=== PATIENT | female | born 1945 | race Caucasian/White ===

== ENCOUNTER 2016-12-03 18:35 | Emergency (ER) | payer MEDICARE ==
[2016-12-03 19:11] VITALS: TEMP 98
[2016-12-03] MEDS ORDERED: SODIUM CHLORIDE 0.9% 1,000 ML IV STA ×2 (19:47)
[2016-12-03] MEDS ORDERED: SODIUM CHLORIDE 0.9% 500 ML IV STA ×2 (19:47→21:44)
--- NOTE | 2016-12-03 19:51 | ED ---
Altered Mental Status HPI - General Chief Complaint: Altered Mental Status Stated Complaint: memory loss and confusion x 2 weeks Time Seen by Provider: 12/03/16 19:00 Source: patient, family, RN/MD, RN notes reviewed Mode of arrival: ambulatory Limitations: no limitations - History of Present Illness Initial Comments: This is a 71-year-old female history of breast cancer status post bilateral mastectomy is also status post chemo radiation therapy who for about the past 2 weeks is had a change in her mental status. Normally she is very upbeat very talkative very alert and very active for the past 2 weeks she's progressively gotten worse she's apathetic lethargic not eating or drinking. She was seen by her doctor and found that has some right-sided weakness with her leg. She's been nonverbal which she normally is very talkative. She's been falling. She' s had tremors. No reports of fevers chills sweats cough or phlegm production or dysuria. MD Complaint: altered mental status, weakness - Related Data Home Medications Medication Instructions Recorded Confirmed Pravastatin Sodium 20 mg PO HS 07/10/15 12/03/16 Enalapril [Vasotec] 20 mg PO BID 04/24/16 12/03/16 Allergies Allergy/AdvReac Type Severity Reaction Status Date / Time hydromorphone HCl AdvReac Nausea & Verified 12/03/16 19:49 [From Dilaudid] Vomiting Review of Systems ROS Statement: Those systems with pertinent positive or pertinent negative responses have been documented in the HPI. ROS Other: All systems not noted in ROS Statement are negative. Past Medical History Past Medical History: Asthma, Cancer, Hyperlipidemia, Hypertension, Liver Disease, Osteoarthritis (OA), Thyroid Disorder Additional Past Medical History / Comment(s): Has BRCA2 gene, RIGHT BREAST CANCER WITH chemo and RADIATION. 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 THYROID NODULES. Rectal bleed (lower) with mclean divertiulosis. History of Any Multi-Drug Resistant Organisms: None Reported Past Surgical History: Breast Surgery, Section, Hysterectomy, Joint Replacement, Tubal Ligation Additional Past Surgical History / Comment(s): 01/21/16 BILATERAL SIMPLE MASTECTOMIES. 07/17/15 SENTINEL NODE BX/AXILLARY NODE DISECTION NEEDLE LOC. RIGHT LUMPECTOMY, 09/09/15. TOTAL RT HIP. L internal jugular mediport. Past Anesthesia/Blood Transfusion Reactions: Motion Sickness Past Psychological History: No Psychological Hx Reported Additional Psychological History / Comment(s): Pt resides with her spouse. . Smoking Status: Former smoker Past Alcohol Use History: Rare Additional Past Alcohol Use History / Comment(s): STARTED SMOKING AT AGE 10 QUIT AT AGE 49 SMOKED 1/2 PPD ( [id number]). Past Drug Use History: None Reported - Past Family History Daughter(s) Family Medical History: Cancer Additional Family Medical History / Comment(s): Pt has 3 daughters. Two have the Braca gene and one has breast cancer and the other has had bilateral mastectomies. The third jared does not have the BRACA gene-she has had thyroid cancer. Mother Sister(s) Daughter(s) Family Medical History: Cancer Additional Family Medical History / Comment(s): BREAST CANCER at age 52. Father Family Medical History: No Reported History Additional Family Medical History / Comment(s): at age 91 yrs. General Exam - General Exam Comments Initial Comments: This is a well-developed well-nourished awake but lethargic female Limitations: no limitations General appearance: alert, in no apparent distress Head exam: Present: atraumatic, normocephalic, normal inspection Eye exam: Present: normal appearance, PERRL, EOMI. Absent: scleral icterus, conjunctival injection, periorbital swelling ENT exam: Present: mucous membranes dry Neck exam: Present: normal inspection. Absent: tenderness, meningismus, lymphadenopathy Respiratory exam: Present: normal lung sounds bilaterally, other (Status post mastectomy). Absent: respiratory distress, wheezes, rales, rhonchi, stridor, chest wall tenderness Cardiovascular Exam: Present: regular rate, normal rhythm, normal heart sounds. Absent: systolic murmur, diastolic murmur, rubs, gallop, clicks GI/Abdominal exam: Present: soft, normal bowel sounds. Absent: distended, tenderness, guarding, rebound, rigid Extremities exam: Present: normal inspection, full ROM, normal capillary refill. Absent: tenderness, pedal edema, joint swelling, calf tenderness Back exam: Present: normal inspection Neurological exam: Present: alert, oriented X3, CN II-XII intact Psychiatric exam: Present: flat affect Skin exam: Present: warm, dry, intact, normal color. Absent: rash Course Vital Signs 12/03/16 12/03/16 19:06 21:43 Temperature 98 F Pulse Rate 62 65 Respiratory 18 16 Rate Blood Pressure 212/90 223/98 O2 Sat by Pulse 100 Oximetry - Reevaluation(s) Reevaluation #1: 12/03/16 21:54 I did reevaluate the patient no changes her blood pressure still elevated. She' ll receive IV medication and fluids. Medical Decision Making - Medical Decision Making I did discuss findings with patient family patient will be transferred to [facility] the accepting physician is Dr. Mcallister - Lab Data Result diagrams: 12/03/16 19:30 12/03/16 19:30 Lab Results 12/03/16 12/03/16 12/03/16 Range/Units 19:30 19:30 19:30 WBC 6.3 (3.8-10.6) k/uL RBC 4.82 (3.80-5.40) m/uL Hgb 14.2 (11.4-16.0) gm/dL Hct 40.2 (34.0-46.0) % MCV 83.5 (80.0-100.0) fL MCH 29.4 (25.0-35.0) pg MCHC 35.2 (31.0-37.0) g/dL RDW 14.4 (11.5-15.5) % Plt Count 192 (150-450) k/uL Neutrophils % 76 % Lymphocytes % 13 % Monocytes % 6 % Eosinophils % 1 % Basophils % 0 % Neutrophils # 4.8 (1.3-7.7) k/uL Lymphocytes # 0.8 L (1.0-4.8) k/uL Monocytes # 0.4 (0-1.0) k/uL Eosinophils # 0.1 (0-0.7) k/uL Basophils # 0.0 (0-0.2) k/uL Hyperchromasia Slight Poikilocytosis Slight Sodium 143 (137-145) mmol/L Potassium 3.8 (3.5-5.1) mmol/L Chloride 107 (98-107) mmol/L Carbon Dioxide 21 L (22-30) mmol/L Anion Gap 15 mmol/L BUN 18 H (7-17) mg/dL Creatinine 0.75 (0.52-1.04) mg/dL Est GFR (MDRD) Af Amer >60 (>60 ml/min/1.73 sqM) Est GFR (MDRD) Non-Af >60 (>60 ml/min/1.73 sqM) Glucose 75 (74-99) mg/dL Calcium 9.8 (8.4-10.2) mg/dL Magnesium 1.7 (1.6-2.3) mg/dL Total Bilirubin 0.8 (0.2-1.3) mg/dL AST 25 (14-36) U/L ALT 33 (9-52) U/L Alkaline Phosphatase 95 (38-126) U/L Ammonia (<30) umol/L Total Creatine Kinase 45 (30-135) U/L CK-MB (CK-2) 1.3 (0.0-2.4) ng/mL CK-MB (CK-2) Rel Index 2.9 Total Protein 7.3 (6.3-8.2) g/dL Albumin 4.5 (3.5-5.0) g/dL Amylase 62 (30-110) U/L Lipase 171 (23-300) U/L 12/03/16 Range/Units 20:05 WBC (3.8-10.6) k/uL RBC (3.80-5.40) m/uL Hgb (11.4-16.0) gm/dL Hct (34.0-46.0) % MCV (80.0-100.0) fL MCH (25.0-35.0) pg MCHC (31.0-37.0) g/dL RDW (11.5-15.5) % Plt Count (150-450) k/uL Neutrophils % % Lymphocytes % % Monocytes % % Eosinophils % % Basophils % % Neutrophils # (1.3-7.7) k/uL Lymphocytes # (1.0-4.8) k/uL Monocytes # (0-1.0) k/uL Eosinophils # (0-0.7) k/uL Basophils # (0-0.2) k/uL Hyperchromasia Poikilocytosis Sodium (137-145) mmol/L Potassium (3.5-5.1) mmol/L Chloride (98-107) mmol/L Carbon Dioxide (22-30) mmol/L Anion Gap mmol/L BUN (7-17) mg/dL Creatinine (0.52-1.04) mg/dL Est GFR (MDRD) Af Amer (>60 ml/min/1.73 sqM) Est GFR (MDRD) Non-Af (>60 ml/min/1.73 sqM) Glucose (74-99) mg/dL Calcium (8.4-10.2) mg/dL Magnesium (1.6-2.3) mg/dL Total Bilirubin (0.2-1.3) mg/dL AST (14-36) U/L ALT (9-52) U/L Alkaline Phosphatase (38-126) U/L Ammonia <9 (<30) umol/L Total Creatine Kinase (30-135) U/L CK-MB (CK-2) (0.0-2.4) ng/mL CK-MB (CK-2) Rel Index Total Protein (6.3-8.2) g/dL Albumin (3.5-5.0) g/dL Amylase (30-110) U/L Lipase (23-300) U/L - EKG Data -: EKG Interpreted by Me EKG shows normal: sinus rhythm (EKG shows sinus bradycardia 54. Interval 186 QRS duration 138 daily since QTC of 476/451 red bundle-branch block pattern no acute ST-T wave changes) - Radiology Data Radiology results: report reviewed (I did review the imaging and reports are is evidence of 5 x 3 cm left frontal lobe mass very minimal evidence of mass effect.), image reviewed Disposition Clinical Impression: Brain mass, Hypertension, Dehydration, Encephalopathy, History of breast cancer Disposition: OTHER INSTITUTION NOT DEFINED Condition: Serious - Out of Hospital Transfer - Req. Specs Out of Hospital Transfer - Requested Specifics: Other Emergency Center
[2016-12-03 20:01] LABS: Basophils % (A) 0 %; CH 30.3; CHCM 36.4; Eosinophils # (A) 0.1 k/uL (0-0.7); Eosinophils % (A) 1 %; HCT 40.2 % (34.0-46.0); HDW 3.69; HGB 14.2 gm/dL (11.4-16.0); Hyperchromasia Slight; Luc # (Auto) 0.21; Luc % (Auto) 3; Lymphocytes # (A) 0.8 k/uL (1.0-4.8); Lymphocytes % (A) 13 %; MCH 29.4 pg (25.0-35.0); MCHC 35.2 g/dL (31.0-37.0); MCV 83.5 fL (80.0-100.0); Mean Platelet Volume 6.7; Monocytes # (A) 0.4 k/uL (0-1.0); Monocytes % (A) 6 %; Neutrophils # (A) 4.8 k/uL (1.3-7.7); Neutrophils % (A) 76 %; Poikilocytosis Slight; RBC 4.82 m/uL (3.80-5.40); RDW 14.4 % (11.5-15.5); WBC 6.3 k/uL (3.8-10.6); WBC (Perox) 6.26
[2016-12-03 20:20] LABS: ALT 33 U/L (9-52); AST 25 U/L (14-36); Alkaline Phosphatase 95 U/L (38-126); Amylase 62 U/L (30-110); Anion Gap 15 mmol/L; Blood Urea Nitrogen 18 mg/dL (7-17); Calcium 9.8 mg/dL (8.4-10.2); Carbon Dioxide 21 mmol/L (22-30); Chloride 107 mmol/L (98-107); Glucose 75 mg/dL (74-99); Magnesium 1.7 mg/dL (1.6-2.3); Non-African American GFR(MDRD) >60 (>60 ml/min/1.73 sqM); Potassium 3.8 mmol/L (3.5-5.1); Sodium 143 mmol/L (137-145); Total Bilirubin 0.8 mg/dL (0.2-1.3); Total Protein 7.3 g/dL (6.3-8.2)
--- NOTE | 2016-12-03 20:29 | XR ---
EXAMINATION TYPE: XR chest 2V DATE OF EXAM: 12/03/2016 8:24 PM COMPARISON: 11/17/2015 HISTORY: Cough TECHNIQUE: Frontal and lateral views of the chest are obtained. FINDINGS: Heart and mediastinum are normal. Lungs are clear. There are no hilar masses. Costophrenic angles are clear. There are chest leads. Bony thorax is intact. IMPRESSION: No active cardiopulmonary disease. No change.
[2016-12-03 20:34] LABS: Creatine Kinase MB 1.3 ng/mL (0.0-2.4)
[2016-12-03] MEDS: RX INFO: IV CONTRAST WAS GIVEN 1 EACH MISC MISCELLANE PRN (20:38)
--- NOTE | 2016-12-03 20:56 | CT ---
EXAMINATION TYPE: CT brain wo/w con DATE OF EXAM: 12/03/2016 8:45 PM COMPARISON: 04/18/2015 HISTORY: MEMORY LOSS AND CONFUSION X2 WEEKS. HX OF BREAST CA. CT DLP: 1877.2 mGycm Automated exposure control for dose reduction was used. CONTRAST: CT scan of the head is performed without and with IV Contrast, patient injected with 100 mL of Omnipa que 300. FINDINGS: There is of oval-shaped 5 x 3 cm hypodense mass in the left frontal lobe with effacement of the front al horn left lateral ventricle. There is surrounding white matter edema. Midline is shifted slightly to the right. There is no evidence of intracranial hemorrhage. There is ring enhancement of the lesio n with the contrast. The calvarium is intact. IMPRESSION: There is a large ring-enhancing mass in the left frontal lobe with surrounding edema. This is consist ent with metastatic disease in this patient with a history of breast cancer. This lesion is new ludwin red to old exam of 04/18/2015. Brain abscess is in the differential diagnosis. No other brain lesions i dentified.
[2016-12-03] MEDS ORDERED: ENALAPRILAT 1.25 MG/ML 1 ML VIAL IVP STA (21:44)
[2016-12-03 21:45] VITALS: RESP 16
[2016-12-03] MEDS ORDERED: hydrALAZINE HCL 20 MG/ML 1 ML VIAL IVP STA (22:32)
[2016-12-03] MEDS ORDERED: DEXAMETHASONE SOD PHOSPHATE 10 MG/ML 1 ML VIAL IV STA (22:41)
[2016-12-03 23:02] VITALS: BP 174/95; PULSE 66
[2016-12-03 23:03] LABS: Appearance,Urine Clear (Clear); Bacteria,Urine Rare /hpf; Bilirubin,Urine Negative (Negative); Glucose,Urine (UA) Negative (Negative); Ketones,Urine 3+ (Negative); Leukocyte Esterase,Urine Large (Negative); Mucus,Urine Rare /hpf; Nitrite,Urine Negative (Negative); PH, Urine 5.5 (5.0-8.0); Particle Count 1780; Protein,Urine Trace (Negative); RBC,Urine 13 /hpf (0-5); Specific Gravity,Urine 1.045 (1.001-1.035); Squamous Epithelial Cell,Urine 1 /hpf (0-4); UA Billing (MACRO vs. MICRO) MICRO; Urobilinogen,Urine <2.0 mg/dL (<2.0); WBC,Urine 70 /hpf (0-5)
== END 2016-12-03 22:56 | disposition other institution (70) ==
LOC: EC 18:35
DX: E86.0 Dehydration (principal); G93.40 Encephalopathy, unspecified; I10 Essential (primary) hypertension; G93.9 Disorder of brain, unspecified; Z85.3 Personal history of malignant neoplasm of breast; E78.5 Hyperlipidemia, unspecified; Z87.891 Personal history of nicotine dependence; Z79.899 Other long term (current) drug therapy; Z88.5 Allergy status to narcotic agent
CPT/HCPCS: 36415; 80053; 82140; 82150; 82550; 82553; 83690; 83735; 85025; 81001; 87040; 71020; 70470; 99285; 96374; 96375 ×2; 96361 ×2; J0360; J1100; Q9967; 93005

== ENCOUNTER 2017-01-27 13:42 | Inpatient (IN) | payer MEDICARE ==
[2017-01-27] MEDS ORDERED: SODIUM CHLORIDE 0.9% 1,000 ML IV ONE ×2 (13:49)
--- NOTE | 2017-01-27 13:56 | ED ---
Altered Mental Status HPI - General Stated Complaint: ALTERED LOC Time Seen by Provider: 01/27/17 13:42 Source: family, EMS, RN notes reviewed, old records reviewed Mode of arrival: EMS - History of Present Illness Initial Comments: This is a 71-year-old female history of bilateral mastectomy for breast cancer in brain surgery 6 weeks ago for another tumor was brought in for evaluation today because of decreased lower responsiveness and altered mental status. Patient apparently feels somewhat slowly declining since his surgery has been eating and drinking. She was awake and alert yesterday but this morning and said she responds very slowly. No reports of any recent trauma other than right hip pain from a fall about 2 weeks ago. X-rays of this apparently were negative for acute fractures. No dysuria no hematuria no cough or phlegm production symptoms. Per family the patient is always had some deficit on the silent original hip surgery in the left. Nothing new today MD Complaint: altered mental status, decreased responsiveness - Related Data Home Medications Medication Instructions Recorded Confirmed Acetaminophen-Codeine 300-30mg 1 tab PO Q8H PRN 01/27/17 01/27/17 [Tylenol #3] Enalapril Maleate [Vasotec] 5 mg PO BID 01/27/17 01/27/17 Famotidine [Pepcid] 20 mg PO BID 01/27/17 01/27/17 Memantine [Namenda] 10 mg PO BID 01/27/17 01/27/17 Pantoprazole [Protonix] 40 mg PO DAILY 01/27/17 01/27/17 Pravastatin Sodium [Pravachol] 20 mg PO HS 01/27/17 01/27/17 amLODIPine [Norvasc] 5 mg PO DAILY 01/27/17 01/27/17 levETIRAcetam [Keppra] 500 mg PO BID 01/27/17 01/27/17 Allergies Allergy/AdvReac Type Severity Reaction Status Date / Time hydrocodone AdvReac Nausea & Verified 01/27/17 14:37 Vomiting hydromorphone HCl AdvReac Nausea & Verified 01/27/17 14:37 [From Dilaudid] Vomiting Review of Systems ROS Statement: Those systems with pertinent positive or pertinent negative responses have been documented in the HPI. ROS Other: All systems not noted in ROS Statement are negative. Past Medical History Past Medical History: Asthma, Cancer, Hyperlipidemia, Hypertension, Liver Disease, Osteoarthritis (OA), Thyroid Disorder Additional Past Medical History / Comment(s): Has BRCA2 gene, RIGHT BREAST CANCER WITH chemo and RADIATION. 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 THYROID NODULES. Rectal bleed (lower) with mclean divertiulosis. History of Any Multi-Drug Resistant Organisms: None Reported Past Surgical History: Breast Surgery, Section, Hysterectomy, Joint Replacement, Tubal Ligation Additional Past Surgical History / Comment(s): 01/21/16 BILATERAL SIMPLE MASTECTOMIES. 07/17/15 SENTINEL NODE BX/AXILLARY NODE DISECTION NEEDLE LOC. RIGHT LUMPECTOMY, 09/09/15. TOTAL RT HIP. L internal jugular mediport. Past Anesthesia/Blood Transfusion Reactions: Motion Sickness Past Psychological History: No Psychological Hx Reported Additional Psychological History / Comment(s): Pt resides with her spouse. . Smoking Status: Former smoker Past Alcohol Use History: Rare Additional Past Alcohol Use History / Comment(s): STARTED SMOKING AT AGE 10 QUIT AT AGE 49 SMOKED 1/2 PPD ( [id number]). Past Drug Use History: None Reported - Past Family History Daughter(s) Family Medical History: Cancer Additional Family Medical History / Comment(s): Pt has 3 daughters. Two have the Braca gene and one has breast cancer and the other has had bilateral mastectomies. The third jared does not have the BRACA gene-she has had thyroid cancer. Mother Sister(s) Daughter(s) Family Medical History: Cancer Additional Family Medical History / Comment(s): BREAST CANCER at age 52. Father Family Medical History: No Reported History Additional Family Medical History / Comment(s): at age 91 yrs. General Exam - General Exam Comments Initial Comments: This is a well-developed well-nourished awake lethargic female she does follow commands very slowly Limitations: altered mental status General appearance: alert, in no apparent distress Head exam: Present: normocephalic, other (There is a well-healing surgical scars in the left scalp no evidence of any infection drainage dehiscence) Eye exam: Present: normal appearance, PERRL, EOMI. Absent: scleral icterus, conjunctival injection, periorbital swelling ENT exam: Present: mucous membranes dry Neck exam: Present: normal inspection. Absent: tenderness, meningismus, lymphadenopathy Respiratory exam: Present: normal lung sounds bilaterally, other (Bilateral mastectomy scars well-healed). Absent: respiratory distress, wheezes, rales, rhonchi, stridor Cardiovascular Exam: Present: normal rhythm, tachycardia, normal heart sounds. Absent: systolic murmur, diastolic murmur, rubs, gallop, clicks GI/Abdominal exam: Present: soft, normal bowel sounds. Absent: distended, tenderness, guarding, rebound, rigid Extremities exam: Present: normal inspection, full ROM, tenderness (Tenderness palpation over the right hip no cervical or crepitation), normal capillary refill. Absent: pedal edema, joint swelling, calf tenderness Back exam: Present: normal inspection Neurological exam: Present: alert, altered, CN II-XII intact, reflexes normal Psychiatric exam: Present: normal mood, flat affect Skin exam: Present: warm, dry, intact, normal color. Absent: rash Course Vital Signs 01/27/17 01/27/17 01/27/17 13:56 14:56 14:58 Temperature 99.5 F Pulse Rate 110 H 104 H Pulse Rate [ 104 H Bilateral Radial] Respiratory 14 15 Rate Blood Pressure 106/66 116/57 O2 Sat by Pulse 96 95 Oximetry 01/27/17 15:30 Temperature 98.5 F Pulse Rate 97 Pulse Rate [ Bilateral Radial] Respiratory Rate Blood Pressure 126/66 O2 Sat by Pulse Oximetry - Reevaluation(s) Reevaluation #1: 01/27/17 16:50 Return from CAT scan reveals patient has no acute changes no definite improvement Medical Decision Making - Medical Decision Making Reevaluation patient reveals some improvement in her mentation she so lethargic all over. I did discuss findings with the family and with Dr. Bishop the major finding at this time besides some mild dehydration is elevated troponin. He does not seem indicated any acute changes facial be admitted with cardiology consultation. - Lab Data Result diagrams: 01/27/17 13:45 01/27/17 13:45 Lab Results 01/27/17 01/27/17 01/27/17 Range/Units 13:45 13:45 13:45 WBC 3.0 L (3.8-10.6) k/uL RBC 3.83 (3.80-5.40) m/uL Hgb 12.2 (11.4-16.0) gm/dL Hct 33.5 L (34.0-46.0) % MCV 87.4 (80.0-100.0) fL MCH 31.7 (25.0-35.0) pg MCHC 36.3 (31.0-37.0) g/dL RDW 17.0 H (11.5-15.5) % Plt Count 60 L D (150-450) k/uL Neutrophils % (Manual) 66.0 % Lymphocytes % (Manual) 25.0 % Monocytes % (Manual) 8.0 % Eosinophils % (Manual) 1.0 % Neutrophils # (Manual) 2.0 (1.3-7.7) k/uL Lymphocytes # (Manual) 0.8 L (1.0-4.8) k/uL Monocytes # (Manual) 0.2 (0-1.0) k/uL Eosinophils # (Manual) 0.0 (0-0.7) k/uL Nucleated RBCs 7 H (0-0) /100 WBC Manual Slide Review Performed Hyperchromasia Slight Anisocytosis Slight PT (9.0-12.0) sec INR (<1.1) APTT (22.0-30.0) sec Sodium 129 L (137-145) mmol/L Potassium 4.5 (3.5-5.1) mmol/L Chloride 95 L (98-107) mmol/L Carbon Dioxide 27 (22-30) mmol/L Anion Gap 7 mmol/L BUN 23 H (7-17) mg/dL Creatinine 0.65 (0.52-1.04) mg/dL Est GFR (MDRD) Af Amer >60 (>60 ml/min/1.73 sqM) Est GFR (MDRD) Non-Af >60 (>60 ml/min/1.73 sqM) Glucose 89 (74-99) mg/dL POC Glucose (mg/dL) (75-99) mg/dL POC Glu Fire Protection Designer ID Calcium 8.6 (8.4-10.2) mg/dL Total Bilirubin 1.0 (0.2-1.3) mg/dL AST 24 (14-36) U/L ALT 51 (9-52) U/L Alkaline Phosphatase 76 (38-126) U/L Ammonia (<30) umol/L Total Creatine Kinase 59 (30-135) U/L CK-MB (CK-2) 1.4 (0.0-2.4) ng/mL CK-MB (CK-2) Rel Index 2.4 Troponin I 0.106 H* (0.000-0.034) ng/mL Total Protein 5.4 L (6.3-8.2) g/dL Albumin 3.2 L (3.5-5.0) g/dL Urine Color Urine Appearance (Clear) Urine pH (5.0-8.0) Ur Specific [place] (1.001-1.035) Urine Protein (Negative) Urine Glucose (UA) (Negative) Urine Ketones (Negative) Urine Blood (Negative) Urine Nitrite (Negative) Urine Bilirubin (Negative) Urine Urobilinogen (<2.0) mg/dL Ur Leukocyte Esterase (Negative) Urine RBC (0-5) /hpf Urine WBC (0-5) /hpf Urine WBC Clumps (None) /hpf Ur Squamous Epith Cells (0-4) /hpf Amorphous Sediment (None) /hpf Urine Bacteria (None) /hpf Urine Mucus (None) /hpf Urine Opiates Screen (NotDetected) Ur Oxycodone Screen (NotDetected) Urine Methadone Screen (NotDetected) Ur Propoxyphene Screen (NotDetected) Ur Barbiturates Screen (NotDetected) U Tricyclic Antidepress (NotDetected) Ur Phencyclidine Scrn (NotDetected) Ur Amphetamines Screen (NotDetected) U Methamphetamines Scrn (NotDetected) U Benzodiazepines Scrn (NotDetected) Urine Cocaine Screen (NotDetected) U Marijuana (THC) Screen (NotDetected) 01/27/17 01/27/17 01/27/17 Range/Units 13:45 14:48 14:50 WBC (3.8-10.6) k/uL RBC (3.80-5.40) m/uL Hgb (11.4-16.0) gm/dL Hct (34.0-46.0) % MCV (80.0-100.0) fL MCH (25.0-35.0) pg MCHC (31.0-37.0) g/dL RDW (11.5-15.5) % Plt Count (150-450) k/uL Neutrophils % (Manual) % Lymphocytes % (Manual) % Monocytes % (Manual) % Eosinophils % (Manual) % Neutrophils # (Manual) (1.3-7.7) k/uL Lymphocytes # (Manual) (1.0-4.8) k/uL Monocytes # (Manual) (0-1.0) k/uL Eosinophils # (Manual) (0-0.7) k/uL Nucleated RBCs (0-0) /100 WBC Manual Slide Review Hyperchromasia Anisocytosis PT 9.7 (9.0-12.0) sec INR 0.9 (<1.1) APTT 18.3 L (22.0-30.0) sec Sodium (137-145) mmol/L Potassium (3.5-5.1) mmol/L Chloride (98-107) mmol/L Carbon Dioxide (22-30) mmol/L Anion Gap mmol/L BUN (7-17) mg/dL Creatinine (0.52-1.04) mg/dL Est GFR (MDRD) Af Amer (>60 ml/min/1.73 sqM) Est GFR (MDRD) Non-Af (>60 ml/min/1.73 sqM) Glucose (74-99) mg/dL POC Glucose (mg/dL) (75-99) mg/dL POC Glu Fire Protection Designer ID Calcium (8.4-10.2) mg/dL Total Bilirubin (0.2-1.3) mg/dL AST (14-36) U/L ALT (9-52) U/L Alkaline Phosphatase (38-126) U/L Ammonia <9 (<30) umol/L Total Creatine Kinase (30-135) U/L CK-MB (CK-2) (0.0-2.4) ng/mL CK-MB (CK-2) Rel Index Troponin I (0.000-0.034) ng/mL Total Protein (6.3-8.2) g/dL Albumin (3.5-5.0) g/dL Urine Color Yellow Urine Appearance Cloudy H (Clear) Urine pH 6.5 (5.0-8.0) Ur Specific [place] 1.013 (1.001-1.035) Urine Protein Trace H (Negative) Urine Glucose (UA) Negative (Negative) Urine Ketones Negative (Negative) Urine Blood Small H (Negative) Urine Nitrite Negative (Negative) Urine Bilirubin Negative (Negative) Urine Urobilinogen 2.0 (<2.0) mg/dL Ur Leukocyte Esterase Moderate H (Negative) Urine RBC 8 H (0-5) /hpf Urine WBC 42 H (0-5) /hpf Urine WBC Clumps Occasional H (None) /hpf Ur Squamous Epith Cells 5 H (0-4) /hpf Amorphous Sediment Rare H (None) /hpf Urine Bacteria Many H (None) /hpf Urine Mucus Occasional H (None) /hpf Urine Opiates Screen Detected H (NotDetected) Ur Oxycodone Screen Not Detected (NotDetected) Urine Methadone Screen Not Detected (NotDetected) Ur Propoxyphene Screen Not Detected (NotDetected) Ur Barbiturates Screen Not Detected (NotDetected) U Tricyclic Antidepress Not Detected (NotDetected) Ur Phencyclidine Scrn Not Detected (NotDetected) Ur Amphetamines Screen Not Detected (NotDetected) U Methamphetamines Scrn Not Detected (NotDetected) U Benzodiazepines Scrn Not Detected (NotDetected) Urine Cocaine Screen Not Detected (NotDetected) U Marijuana (THC) Screen Not Detected (NotDetected) 01/27/17 Range/Units 16:02 WBC (3.8-10.6) k/uL RBC (3.80-5.40) m/uL Hgb (11.4-16.0) gm/dL Hct (34.0-46.0) % MCV (80.0-100.0) fL MCH (25.0-35.0) pg MCHC (31.0-37.0) g/dL RDW (11.5-15.5) % Plt Count (150-450) k/uL Neutrophils % (Manual) % Lymphocytes % (Manual) % Monocytes % (Manual) % Eosinophils % (Manual) % Neutrophils # (Manual) (1.3-7.7) k/uL Lymphocytes # (Manual) (1.0-4.8) k/uL Monocytes # (Manual) (0-1.0) k/uL Eosinophils # (Manual) (0-0.7) k/uL Nucleated RBCs (0-0) /100 WBC Manual Slide Review Hyperchromasia Anisocytosis PT (9.0-12.0) sec INR (<1.1) APTT (22.0-30.0) sec Sodium (137-145) mmol/L Potassium (3.5-5.1) mmol/L Chloride (98-107) mmol/L Carbon Dioxide (22-30) mmol/L Anion Gap mmol/L BUN (7-17) mg/dL Creatinine (0.52-1.04) mg/dL Est GFR (MDRD) Af Amer (>60 ml/min/1.73 sqM) Est GFR (MDRD) Non-Af (>60 ml/min/1.73 sqM) Glucose (74-99) mg/dL POC Glucose (mg/dL) 85 (75-99) mg/dL POC Glu Fire Protection Designer ID Dariana, Tanja Calcium (8.4-10.2) mg/dL Total Bilirubin (0.2-1.3) mg/dL AST (14-36) U/L ALT (9-52) U/L Alkaline Phosphatase (38-126) U/L Ammonia (<30) umol/L Total Creatine Kinase (30-135) U/L CK-MB (CK-2) (0.0-2.4) ng/mL CK-MB (CK-2) Rel Index Troponin I (0.000-0.034) ng/mL Total Protein (6.3-8.2) g/dL Albumin (3.5-5.0) g/dL Urine Color Urine Appearance (Clear) Urine pH (5.0-8.0) Ur Specific [place] (1.001-1.035) Urine Protein (Negative) Urine Glucose (UA) (Negative) Urine Ketones (Negative) Urine Blood (Negative) Urine Nitrite (Negative) Urine Bilirubin (Negative) Urine Urobilinogen (<2.0) mg/dL Ur Leukocyte Esterase (Negative) Urine RBC (0-5) /hpf Urine WBC (0-5) /hpf Urine WBC Clumps (None) /hpf Ur Squamous Epith Cells (0-4) /hpf Amorphous Sediment (None) /hpf Urine Bacteria (None) /hpf Urine Mucus (None) /hpf Urine Opiates Screen (NotDetected) Ur Oxycodone Screen (NotDetected) Urine Methadone Screen (NotDetected) Ur Propoxyphene Screen (NotDetected) Ur Barbiturates Screen (NotDetected) U Tricyclic Antidepress (NotDetected) Ur Phencyclidine Scrn (NotDetected) Ur Amphetamines Screen (NotDetected) U Methamphetamines Scrn (NotDetected) U Benzodiazepines Scrn (NotDetected) Urine Cocaine Screen (NotDetected) U Marijuana (THC) Screen (NotDetected) - EKG Data -: EKG Interpreted by Me EKG shows normal: sinus rhythm (Sinus rhythm a rate of 110 NV interval 172 QRS 120 daily since QTC of 326/441 red bundle-branch block pattern this is a change of surface area 1 compared to an EKG dated 12/03/16) - Radiology Data Radiology results: report reviewed (I did review the imaging and reports no acute findings no new findings.), image reviewed Critical Care Time Critical Care Time: Yes Critical Care Time: 31 minutes of critical care time which was initial monitoring of the EMS run and discussed with paramedics discussed with family members history physical labs x-rays. Multiple re-evaluations the patient discussed the patient family regarding the findings. Discussed with the admitting physician. Orders and documentation of the above. Disposition Clinical Impression: Non-ST elevation myocardial infarction (NSTEMI), Failure to thrive Disposition: ADMITTED IP TO THIS HOSP Condition: Stable Referrals: Shobha Boss MD [Primary Care Provider] - 1-2 days
--- NOTE | 2017-01-27 14:26 | XR ---
EXAMINATION TYPE: XR chest 1V portable DATE OF EXAM: 01/27/2017 COMPARISON: 12/03/2016 HISTORY: Altered mental status TECHNIQUE: Single frontal view of the chest is obtained. FINDINGS: There is no focal air space opacity, pleural effusion, or pneumothorax seen. The cardiac silhouette size is within normal limits. The osseous structures are intact. Arthropathy of the shou lders. Atherosclerotic change aorta. Biapical pleural thickening. No overt failure. Diffuse osteopeni a and hypertrophic changes of the vertebral column. IMPRESSION: No acute process.
[2017-01-27 14:28] LABS: INR 0.9 (<1.1); Prothrombin Time 9.7 sec (9.0-12.0)
[2017-01-27 14:30] LABS: ALT 51 U/L (9-52); AST 24 U/L (14-36); Alkaline Phosphatase 76 U/L (38-126); Anion Gap 7 mmol/L; Blood Urea Nitrogen 23 mg/dL (7-17); Calcium 8.6 mg/dL (8.4-10.2); Carbon Dioxide 27 mmol/L (22-30); Chloride 95 mmol/L (98-107); Glucose 89 mg/dL (74-99); Non-African American GFR(MDRD) >60 (>60 ml/min/1.73 sqM); Potassium 4.5 mmol/L (3.5-5.1); Sodium 129 mmol/L (137-145); Total Protein 5.4 g/dL (6.3-8.2)
[2017-01-27 14:32] LABS: Anisocytosis Slight; CH 32.5; CHCM 37.3; HCT 33.5 % (34.0-46.0); HDW 3.34; HGB 12.2 gm/dL (11.4-16.0); Hyperchromasia Slight; MCH 31.7 pg (25.0-35.0); MCHC 36.3 g/dL (31.0-37.0); MCV 87.4 fL (80.0-100.0); Mean Platelet Volume 6.9; RBC 3.83 m/uL (3.80-5.40); WBC (Perox) 3.15
[2017-01-27 14:36] LABS: Add Differential Manual Differential
--- NOTE | 2017-01-27 14:42 | CT ---
EXAMINATION TYPE: CT brain wo con DATE OF EXAM: 01/27/2017 HISTORY: Patient poor historian. Patient shows signs of altered mental status. Patient had a brain tumor removed approximately [address] DLP: 1061 mGycm. Automated Exposure Control for Dose Reduction was Utilized. TECHNIQUE: CT scan of the head is performed without contrast. COMPARISON: CT brain December 03, 2016. FINDINGS: There is new left frontal craniotomy. There is round low density area with nondependent fo ci of air are felt to reflect resection cavity. Some adjacent surrounding edema is seen. There is no acute intracranial hemorrhage or new midline shift identified. There is diffuse ventricular and sulca l prominence consistent with diffuse age-related cerebral atrophy. There is low-attenuation in the p eriventricular white matter consistent with chronic small vessel ischemic change. The globes are int act and the visualized sinuses are clear. IMPRESSION: No acute intracranial hemorrhage . There is stable diffuse age-related cerebral atrophy and chronic small vessel ischemic change redemonstrated. Interval left frontal surgery noted.
[2017-01-27 14:45] LABS: Nucleated Red Blood Cells 7 /100 WBC (0-0); Partial Thromboplastin Time 18.3 sec (22.0-30.0); Total Cells Counted 200
[2017-01-27 14:48] LABS: Manual Review Performed
--- NOTE | 2017-01-27 14:55 | CT ---
EXAMINATION TYPE: CT hip RT wo con DATE OF EXAM: 01/27/2017 COMPARISON: CT abdomen and pelvis November 16, 2015. HISTORY: Patient poor historian. Right hip pain. CT DLP: 428 mGycm Automated exposure control for dose reduction was used. FINDINGS: Metallic hardware from hip arthroplasty is redemonstrated. This causes streak artifact limiting evalu ation of pelvic structures. No acute fracture or dislocation in the right hip is identified. Prosthes is position is stable and satisfactory. Scattered pelvic phleboliths are redemonstrated. Diverticula are redemonstrated in the visualized sig moid colon. No concerning pelvic fluid collection or adenopathy is seen. No suspicious bowel or fat-c ontaining right inguinal hernia is identified. IMPRESSION: NO SIGNIFICANT NEW FINDING IS SEEN TO ACCOUNT FOR PATIENT'S SYMPTOMS.
[2017-01-27 15:05] LABS: Creatine Kinase MB 1.4 ng/mL (0.0-2.4)
[2017-01-27 15:09] LABS: Amorphous Sediment,Urine Rare /hpf; Appearance,Urine Cloudy (Clear); Bacteria,Urine Many /hpf; Bilirubin,Urine Negative (Negative); Glucose,Urine (UA) Negative (Negative); Ketones,Urine Negative (Negative); Leukocyte Esterase,Urine Moderate (Negative); Mucus,Urine Occasional /hpf; Nitrite,Urine Negative (Negative); PH, Urine 6.5 (5.0-8.0); Particle Count 96914; Protein,Urine Trace (Negative); RBC,Urine 8 /hpf (0-5); Specific Gravity,Urine 1.013 (1.001-1.035); Squamous Epithelial Cell,Urine 5 /hpf (0-4); UA Billing (MACRO vs. MICRO) MICRO; WBC,Urine 42 /hpf (0-5)
[2017-01-27 15:12] LABS: Troponin I 0.106 ng/mL (0.000-0.034)
[2017-01-27 16:03] LABS: Glucose,Whole Blood 85 mg/dL (75-99)
[2017-01-27] MEDS ORDERED: NITROGLYCERIN SL TABS 0.4 MG TAB SUBLINGUAL PRN (16:52)
[2017-01-27] MEDS ORDERED: Acetaminophen-Codeine 300-30mg TAB PO PRN (16:55)
[2017-01-27] MEDS ORDERED: Acetaminophen-Codeine 300-30mg TAB PO STA (18:18)
[2017-01-27 20:42] LABS: Creatine Kinase MB 1.2 ng/mL (0.0-2.4)
[2017-01-27 20:49] LABS: Troponin I 0.126 ng/mL (0.000-0.034)
[2017-01-27] MEDS: FAMOTIDINE 20 MG TAB PO SCH (22:10)
[2017-01-27] MEDS: levETIRAcetam 500 MG TAB PO SCH (22:10)
[2017-01-27] MEDS: MEMANTINE 10 MG TAB PO SCH (22:10)
[2017-01-27] MEDS: PRAVASTATIN SODIUM 20 MG TAB PO SCH (22:11)
[2017-01-27] MEDS: HEPARIN SODIUM,PORCINE 5,000 UNIT/ML 1 ML VIAL SQ SCH (22:17)
[2017-01-27] MEDS: LISINOPRIL 10 MG TAB PO SCH (22:17)
[2017-01-28 03:33] LABS: Creatine Kinase MB 1.2 ng/mL (0.0-2.4)
[2017-01-28 03:36] LABS: Troponin I 0.103 ng/mL (0.000-0.034)
[2017-01-28] MEDS: PANTOPRAZOLE 40 MG TABLET PO SCH (06:16)
[2017-01-28 06:31] LABS: Cholesterol 218 mg/dL (<200); HDL Cholesterol 54 mg/dL (40-60)
--- NOTE | 2017-01-28 08:18 | CT ---
EXAMINATION TYPE: CT brain wo con DATE OF EXAM: 01/28/2017 HISTORY: Mental status changes CT DLP: 969 mGycm. Automated Exposure Control for Dose Reduction was Utilized. TECHNIQUE: CT scan of the head is performed without contrast. COMPARISON: CT brain from yesterday. FINDINGS: High left frontal craniotomy is redemonstrated. Cavity with surrounding edema left frontal lobe is again seen. Mass effect on frontal horn left lateral ventricle is stable. There is no acute intracranial hemorrhage or midline shift identified. There is diffuse ventricular and sulcal prominen ce consistent with diffuse age-related cerebral atrophy. There is low-attenuation in the periventric ular white matter consistent with chronic small vessel ischemic change. The globes are intact and th e visualized sinuses are clear. IMPRESSION: No acute intracranial hemorrhage or midline shift. Overall stable findings, there is dif fuse age-related cerebral atrophy and chronic small vessel ischemic change redemonstrated. Left fron shanelle surgical changes again seen and stable.
--- NOTE | 2017-01-28 08:21 | P.CRDCN ---
History of Present Illness Consult date: 01/28/17 Requesting physician: Cisco Bishop Reason for Consult (text): Abnormal troponins Chief complaint: Mental status changes History of present illness: This is a 71-year-old female, she is not responding verbally this morning and most of the history was obtained from the medical record. Patient has a history of hypertension, hyperlipidemia, hypothyroidism, asthma, right breast carcinoma status post chemotherapy and bilateral mastectomy, patient underwent brain surgery 6 weeks ago at which time a tumor is removed. She was apparently brought to the hospital because of decreased responsiveness and altered mental status. Cardiology consultation was requested because of abnormal troponins. Blood pressure on arrival 106/60 with a heart rate of 110, temperature on arrival 99.5 she was 96% on 2 L of oxygen. Her temperature did go up to 101.4 yesterday. This morning's temperature 100. EKG shows sinus tachycardia with a right bundle branch block pattern and nonspecific ST-T wave changes. Brain CT does not reveal any acute intracranial hemorrhage interval left frontal surgery is noted. Chest x-ray does not reveal any acute process. Right hip CT does not reveal any new findings. White blood cell count 3.0, hemoglobin 12.2, platelet count 60. Sodium 129, chloride 95, BUN 23, creatinine 0.6. Troponins 0.10, 0.12, 0.10. Patient apparently became completely unresponsive through the night and a repeat CT of the brain was performed this morning. At the time of my examination, patient is lying flat in bed, eyes are open, nonverbal. Past Medical History Past Medical History: Asthma, Cancer, Hyperlipidemia, Hypertension, Liver Disease, Osteoarthritis (OA) Additional Past Medical History / Comment(s): Has BRCA2 gene, RIGHT BREAST CANCER WITH chemo and RADIATION. 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 THYROID NODULES. Rectal bleed (lower) with mclean divertiulosis. History of Any Multi-Drug Resistant Organisms: None Reported Past Surgical History: Breast Surgery, Section, Hysterectomy, Joint Replacement, Tubal Ligation Additional Past Surgical History / Comment(s): 01/21/16 BILATERAL SIMPLE MASTECTOMIES. 07/17/15 SENTINEL NODE BX/AXILLARY NODE DISECTION NEEDLE LOC. RIGHT LUMPECTOMY, 09/09/15. TOTAL RT HIP. L internal jugular mediport. Past Anesthesia/Blood Transfusion Reactions: Motion Sickness Past Psychological History: No Psychological Hx Reported Additional Psychological History / Comment(s): Pt resides with her spouse. . Smoking Status: Former smoker Past Alcohol Use History: Rare Additional Past Alcohol Use History / Comment(s): STARTED SMOKING AT AGE 10 QUIT AT AGE 49 SMOKED 1/2 PPD ( [id number]). Past Drug Use History: None Reported - Past Family History Daughter(s) Family Medical History: Cancer Additional Family Medical History / Comment(s): Pt has 3 daughters. Two have the Braca gene and one has breast cancer and the other has had bilateral mastectomies. The third jared does not have the BRACA gene-she has had thyroid cancer. Mother Sister(s) Daughter(s) Family Medical History: Cancer Additional Family Medical History / Comment(s): BREAST CANCER at age 52. Father Family Medical History: No Reported History Additional Family Medical History / Comment(s): at age 91 yrs. Medications and Allergies Home Medications Medication Instructions Recorded Confirmed Type Acetaminophen-Codeine 300-30mg 1 tab PO Q8H PRN 01/27/17 01/27/17 History [Tylenol #3] Enalapril Maleate [Vasotec] 5 mg PO BID 01/27/17 01/27/17 History Famotidine [Pepcid] 20 mg PO BID 01/27/17 01/27/17 History Memantine [Namenda] 10 mg PO BID 01/27/17 01/27/17 History Pantoprazole [Protonix] 40 mg PO DAILY 01/27/17 01/27/17 History Pravastatin Sodium [Pravachol] 20 mg PO HS 01/27/17 01/27/17 History amLODIPine [Norvasc] 5 mg PO DAILY 01/27/17 01/27/17 History levETIRAcetam [Keppra] 500 mg PO BID 01/27/17 01/27/17 History Allergies Allergy/AdvReac Type Severity Reaction Status Date / Time hydrocodone AdvReac Nausea & Verified 01/27/17 14:37 Vomiting hydromorphone HCl AdvReac Nausea & Verified 01/27/17 14:37 [From Dilaudid] Vomiting Physical Exam Vitals: Vital Signs Temp Pulse Pulse Pulse Resp BP BP 01/28/17 04:00 100 F H 116 H 116 H 16 120/67 01/28/17 00:00 99 F 89 16 110/64 01/27/17 20:00 98.3 F 100 16 113/67 01/27/17 18:08 101.4 F H 107 H 16 114/65 01/27/17 15:30 98.5 F 97 126/66 01/27/17 14:58 104 H 01/27/17 14:56 104 H 15 116/57 01/27/17 13:56 99.5 F 110 H 14 106/66 Pulse Ox 01/28/17 04:00 97 01/28/17 00:00 98 01/27/17 20:00 99 01/27/17 18:08 99 01/27/17 15:30 01/27/17 14:58 01/27/17 14:56 95 01/27/17 13:56 96 Intake and Output 01/27/17 01/28/17 01/28/17 22:59 06:59 14:59 Intake Total 800 Balance 800 Intake: IV 800 Sodium Chloride 0.9% 1, 800 000 ml @ 100 mls/hr IV . Q10H ONE Rx#:[id number] Other: Weight 60.5 kg PHYSICAL EXAMINATION: HEENT: Head is atraumatic, normocephalic. Pupils equal, round. Neck is supple. There is no elevated jugular venous pressure. HEART EXAMINATION: Heart S1-S2 systolic murmur is heard. CHEST EXAMINATION: Lungs are clear to auscultation and precussion anteriorly. No chest wall tenderness is noted on palpation or with deep breathing. ABDOMEN: Soft, nontender. Bowel sounds are heard. No organomegaly noted. EXTREMITIES: 2+ peripheral pulses with no evidence of peripheral edema and no calf tenderness noted. NEUROLOGIC [patient is awake, nonverbal. . Results 01/27/17 13:45 01/27/17 13:45 Cardiac Enzymes 01/27/17 01/27/17 01/27/17 Range/Units 13:45 13:45 19:32 AST 24 (14-36) U/L CK-MB (CK-2) 1.4 1.2 (0.0-2.4) ng/mL Troponin I 0.106 H* 0.126 H* (0.000-0.034) ng/mL 01/28/17 Range/Units 01:55 AST (14-36) U/L CK-MB (CK-2) 1.2 (0.0-2.4) ng/mL Troponin I 0.103 H* (0.000-0.034) ng/mL Coagulation 01/27/17 Range/Units 13:45 PT 9.7 (9.0-12.0) sec APTT 18.3 L (22.0-30.0) sec Lipids 01/28/17 Range/Units 05:40 Triglycerides 246 H (<150) mg/dL Cholesterol 218 H (<200) mg/dL HDL Cholesterol 54 (40-60) mg/dL CBC 01/27/17 Range/Units 13:45 WBC 3.0 L (3.8-10.6) k/uL RBC 3.83 (3.80-5.40) m/uL Hgb 12.2 (11.4-16.0) gm/dL Hct 33.5 L (34.0-46.0) % Plt Count 60 L D (150-450) k/uL Comprehensive Metabolic Panel 01/27/17 Range/Units 13:45 Sodium 129 L (137-145) mmol/L Potassium 4.5 (3.5-5.1) mmol/L Chloride 95 L (98-107) mmol/L Carbon Dioxide 27 (22-30) mmol/L BUN 23 H (7-17) mg/dL Creatinine 0.65 (0.52-1.04) mg/dL Glucose 89 (74-99) mg/dL Calcium 8.6 (8.4-10.2) mg/dL AST 24 (14-36) U/L ALT 51 (9-52) U/L Alkaline Phosphatase 76 (38-126) U/L Total Protein 5.4 L (6.3-8.2) g/dL Albumin 3.2 L (3.5-5.0) g/dL Current Medications Generic Name Dose Route Start Last Admin Trade Name Freq PRN Reason Stop Dose Admin Acetaminophen/Codeine Phosphate 1 each 01/27/17 16:55 Tylenol #3 PO Q8H PRN Moderate Pain Amlodipine Besylate 5 mg 01/28/17 09:00 Norvasc PO DAILY [facility] Aspirin 325 mg 01/28/17 09:00 Aspirin PO DAILY [facility] Famotidine 20 mg 01/27/17 21:00 01/27/17 22:10 Pepcid PO 20 mg BID WINSOME Administration Heparin Sodium (Porcine) 5,000 unit 01/28/17 00:00 01/27/17 22:17 Heparin SQ 5,000 unit Q8HR WINSOME Administration Acetaminophen 1,000 mg/ IV 100 mls @ 400 mls/hr 01/28/17 05:23 Solution IVPB ONCE PRN Fever Ceftriaxone Sodium 1,000 mg/ 50 mls @ 100 mls/hr 01/28/17 09:00 Sodium Chloride IVPB Q24HR WINSOME Levetiracetam 500 mg 01/27/17 21:00 01/27/17 22:10 Keppra PO 500 mg BID WINSOME Administration Lisinopril 10 mg 01/27/17 21:00 01/27/17 22:17 Zestril PO 10 mg BID WNISOME Administration Memantine 10 mg 01/27/17 21:00 01/27/17 22:10 Namenda PO 10 mg BID WINSOME Administration Nitroglycerin 0.4 mg 01/27/17 16:52 Nitrostat SUBLINGUAL Q5M PRN Chest Pain Pantoprazole Sodium 40 mg 01/28/17 07:30 01/28/17 06:16 Protonix PO Not Given [facility] Pravastatin Sodium 20 mg 01/27/17 21:00 01/27/17 22:11 Pravachol PO 20 mg HS WINSOME Administration Intake and Output 01/27/17 01/28/17 01/28/17 22:59 06:59 14:59 Intake Total 800 Balance 800 Intake: IV 800 Sodium Chloride 0.9% 1, 800 000 ml @ 100 mls/hr IV . Q10H ONE Rx#:[id number] Other: Weight 60.5 kg 01/27/17 13:45 01/27/17 13:45 EKG Interpretations (text) EKG shows a sinus tachycardia with a right bundle branch block pattern. Assessment and Plan Plan: Assessment and plan #1 mental status changes, evidence of fever, temperature greater than 101. Blood cultures sent. #2 history of right breast CA with chemotherapy and bilateral mastectomy, most recently approximately 6 weeks ago patient underwent tumor removal of the brain. #3 hypertension #4 hyperlipidemia #5 hypothyroidism #6 abnormal troponins, not consistent with acute coronary syndrome. EKG shows a sinus tachycardia with a right bundle branch block pattern. Plan We will obtain an echocardiogram with Doppler study. Further recommendations to follow. DNP note has been reviewed, I agree with a documented findings and plan of care. Patient was seen and examined.
[2017-01-28] MEDS: ACETAMINOPHEN IV (For NPO) 1,000 MG in EMPTY BAG 1 BAG IVPB PRN ×2 (08:34→21:18)
[2017-01-28] MEDS: amLODIPine 5 MG TAB PO SCH (08:35)
[2017-01-28] MEDS: HEPARIN SODIUM,PORCINE 5,000 UNIT/ML 1 ML VIAL SQ SCH (08:35)
[2017-01-28] MEDS: ASPIRIN 325 MG TAB PO SCH (08:35)
[2017-01-28] MEDS: FAMOTIDINE 20 MG TAB PO SCH ×2 (08:35→20:28)
[2017-01-28] MEDS: MEMANTINE 10 MG TAB PO SCH ×2 (08:36→20:28)
[2017-01-28] MEDS: levETIRAcetam 500 MG TAB PO SCH (08:36)
[2017-01-28] MEDS: LISINOPRIL 10 MG TAB PO SCH ×2 (08:36→20:27)
[2017-01-28 08:59] LABS: Glucose,Whole Blood 96 mg/dL (75-99)
[2017-01-28 09:01] LABS: Anisocytosis Slight; Basophils % (A) 0 %; CH 32.1; CHCM 35.2; Eosinophils % (A) 1 %; HCT 28.9 % (34.0-46.0); HDW 3.14; Luc # (Auto) 0.05; Luc % (Auto) 2; Lymphocytes # (A) 0.4 k/uL (1.0-4.8); Lymphocytes % (A) 15 %; MCH 31.6 pg (25.0-35.0); MCHC 34.5 g/dL (31.0-37.0); MCV 91.6 fL (80.0-100.0); Mean Platelet Volume 7.6; Monocytes # (A) 0.2 k/uL (0-1.0); Monocytes % (A) 8 %; Neutrophils # (A) 2.2 k/uL (1.3-7.7); Neutrophils % (A) 74 %; RBC 3.15 m/uL (3.80-5.40); RDW 17.2 % (11.5-15.5); WBC (Perox) 3.19
[2017-01-28 09:09] LABS: ALT 43 U/L (9-52); AST 24 U/L (14-36); Alkaline Phosphatase 63 U/L (38-126); Anion Gap 5 mmol/L; Blood Urea Nitrogen 18 mg/dL (7-17); Calcium 7.9 mg/dL (8.4-10.2); Carbon Dioxide 23 mmol/L (22-30); Chloride 101 mmol/L (98-107); Glucose 96 mg/dL (74-99); Non-African American GFR(MDRD) >60 (>60 ml/min/1.73 sqM); Potassium 3.9 mmol/L (3.5-5.1); Sodium 129 mmol/L (137-145); Total Bilirubin 0.8 mg/dL (0.2-1.3); Total Protein 4.8 g/dL (6.3-8.2)
[2017-01-28] MEDS: SODIUM CHLORIDE 0.9% 1,000 ML IV SCH ×2 (09:50→16:02)
[2017-01-28] MEDS ORDERED: LEVOFLOXACIN 500MG-D5W PMX 500 MG in DEXTROSE/WATER 1 100ML.BAG IVPB SCH (10:00)
--- NOTE | 2017-01-28 11:10 | P.HPIM ---
History of Present Illness H&P Date: 01/28/17 Chief Complaint: Altered mental status changes This is a 71-year-old female, patient of Dr. Crowley. She has a known past medical history of breast cancer with bilateral mastectomy requiring chemotherapy, brain cancer with brain tumor removed about 6 weeks ago. Last radiation treatment was Wednesday of last week. Patient also has a history of hypertension, hyperlipidemia, GERD and was a former smoker. Patient has been living at home initially had been doing okay working with physical therapy. Over the last couple of weeks patient has declined physically. She was unable to stand. She was having falls. Started having decrease in appetite. Yesterday patient was becoming more lethargic. Family was concerned and brought her into the emergency room for further evaluation. She was found have a temp of 101.4 heart rate of 116. There was evidence of a UTI. She was initially started on Rocephin. She had a computed tomography scan of the brain without contrast completed on admission showing no acute intracranial hemorrhage. Stable diffuse age-related through atrophy and chronic small vessel ischemic change redemonstrated. Interval left frontal surgery noted. However, during the night patient became more lethargic and then unresponsive. Another computed tomography scan of the brain was ordered and again no acute changes noted. A Team was called. She had a temp as high as 102. She was given Tylenol and ice packs. Blood cultures were ordered. Neurology was notified. Case was discussed with Dr. Rawls of this morning. He is recommending a spinal tap due to her sepsis and recent surgery on the brain. Therefore patient has been consulted for spinal tap. Cardiology was also consulted and due to elevated troponins. Patient has been chest pain-free. Troponin was 0.126 and 0.103. EKG had shown sinus tachycardia with a right bundle branch block. Cardiology did evaluate patient and felt that there was no evidence of any acute coronary syndrome. Infectious disease and oncology also been consulted. Patient's antibiotics have been changed to Zosyn and Levaquin. Rocephin has been discontinued. Lactic acid normal at 0.9. Oncology consulted because of the white count of 0.3 and platelets around 60. Patient is awake now. Her eyes are open. She is following some simple commands. However she is very weak. Hand independent consultant equal bilaterally but weak. Case was discussed with family at bedside. Most history obtained from family and nursing staff. There is no chest pain, shortness of breath, nausea or vomiting, bowel movement changes or urinary symptoms noted. Patient also has been having some urinary retention and Calles catheter has been inserted. Review of Systems Please refer to HPI otherwise unremarkable Past Medical History Past Medical History: Asthma, Cancer, Hyperlipidemia, Hypertension, Liver Disease, Osteoarthritis (OA) Additional Past Medical History / Comment(s): Has BRCA2 gene, RIGHT BREAST CANCER WITH chemo and RADIATION. 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 THYROID NODULES. Rectal bleed (lower) with mclean divertiulosis. History of Any Multi-Drug Resistant Organisms: None Reported Past Surgical History: Breast Surgery, Section, Hysterectomy, Joint Replacement, Tubal Ligation Additional Past Surgical History / Comment(s): 01/21/16 BILATERAL SIMPLE MASTECTOMIES. 07/17/15 SENTINEL NODE BX/AXILLARY NODE DISECTION NEEDLE LOC. RIGHT LUMPECTOMY, 09/09/15. TOTAL RT HIP. L internal jugular mediport. Past Anesthesia/Blood Transfusion Reactions: Motion Sickness Past Psychological History: No Psychological Hx Reported Additional Psychological History / Comment(s): Pt resides with her spouse. . Smoking Status: Former smoker Past Alcohol Use History: Rare Additional Past Alcohol Use History / Comment(s): STARTED SMOKING AT AGE 10 QUIT AT AGE 49 SMOKED 1/2 PPD ( [id number]). Past Drug Use History: None Reported - Past Family History Daughter(s) Family Medical History: Cancer Additional Family Medical History / Comment(s): Pt has 3 daughters. Two have the Braca gene and one has breast cancer and the other has had bilateral mastectomies. The third jared does not have the BRACA gene-she has had thyroid cancer. Mother Sister(s) Daughter(s) Family Medical History: Cancer Additional Family Medical History / Comment(s): BREAST CANCER at age 52. Father Family Medical History: No Reported History Additional Family Medical History / Comment(s): at age 91 yrs. Medications and Allergies Home Medications Medication Instructions Recorded Confirmed Type Acetaminophen-Codeine 300-30mg 1 tab PO Q8H PRN 01/27/17 01/27/17 History [Tylenol #3] Enalapril Maleate [Vasotec] 5 mg PO BID 01/27/17 01/27/17 History Famotidine [Pepcid] 20 mg PO BID 01/27/17 01/27/17 History Memantine [Namenda] 10 mg PO BID 01/27/17 01/27/17 History Pantoprazole [Protonix] 40 mg PO DAILY 01/27/17 01/27/17 History Pravastatin Sodium [Pravachol] 20 mg PO HS 01/27/17 01/27/17 History amLODIPine [Norvasc] 5 mg PO DAILY 01/27/17 01/27/17 History levETIRAcetam [Keppra] 500 mg PO BID 01/27/17 01/27/17 History Allergies Allergy/AdvReac Type Severity Reaction Status Date / Time hydrocodone AdvReac Nausea & Verified 01/27/17 14:37 Vomiting hydromorphone HCl AdvReac Nausea & Verified 01/27/17 14:37 [From Dilaudid] Vomiting Physical Exam Vitals: Vital Signs Temp Pulse Pulse Pulse Resp BP BP 01/28/17 09:50 99.1 F 01/28/17 08:30 102.8 F H 70 18 154/63 01/28/17 04:00 100 F H 116 H 116 H 16 120/67 01/28/17 00:00 99 F 89 16 110/64 01/27/17 20:00 98.3 F 100 16 113/67 01/27/17 18:08 101.4 F H 107 H 16 114/65 01/27/17 15:30 98.5 F 97 126/66 01/27/17 14:58 104 H 01/27/17 14:56 104 H 15 116/57 01/27/17 13:56 99.5 F 110 H 14 106/66 Pulse Ox 01/28/17 09:50 01/28/17 08:30 93 L 01/28/17 04:00 97 01/28/17 00:00 98 01/27/17 20:00 99 01/27/17 18:08 99 01/27/17 15:30 01/27/17 14:58 01/27/17 14:56 95 01/27/17 13:56 96 Intake and Output 01/27/17 01/28/17 01/28/17 22:59 06:59 14:59 Intake Total 800 Output Total 800 Balance 800 -800 Intake: IV 800 Sodium Chloride 0.9% 1, 800 000 ml @ 100 mls/hr IV . Q10H ONE Rx#:[id number] Output: Urine 800 Other: Weight 60.5 kg Head normocephalic Neck supple Lungs clear to auscultation bilaterally no wheezing or crackles Heart regular rate and rhythm S1-S2, no rub or gallop Abdomen is soft nontender nondistended positive bowel sounds no hepatosplenomegaly Extremities no edema Neuro awake. Able to follow some simple commands. Hand independent consultant equal bilaterally about 1 out of 5 bilaterally. Patient is able to wiggle her toes. Her speech is started when she tried to speak her son-in-law's name Results CBC & Chem 7: 01/28/17 05:40 01/28/17 05:40 Labs: Abnormal Lab Results - Last 24 Hours (Table) 01/27/17 01/27/17 01/27/17 Range/Units 13:45 13:45 13:45 WBC 3.0 L (3.8-10.6) k/uL RBC (3.80-5.40) m/uL Hgb (11.4-16.0) gm/dL Hct 33.5 L (34.0-46.0) % RDW 17.0 H (11.5-15.5) % Plt Count 60 L D (150-450) k/uL Lymphocytes # (1.0-4.8) k/uL Lymphocytes # (Manual) 0.8 L (1.0-4.8) k/uL Nucleated RBCs 7 H (0-0) /100 WBC APTT (22.0-30.0) sec Sodium 129 L (137-145) mmol/L Chloride 95 L (98-107) mmol/L BUN 23 H (7-17) mg/dL Creatinine (0.52-1.04) mg/dL Calcium (8.4-10.2) mg/dL Troponin I 0.106 H* (0.000-0.034) ng/mL Total Protein 5.4 L (6.3-8.2) g/dL Albumin 3.2 L (3.5-5.0) g/dL Triglycerides (<150) mg/dL Cholesterol (<200) mg/dL LDL Cholesterol, Calc (0-99) mg/dL Urine Appearance (Clear) Urine Protein (Negative) Urine Blood (Negative) Ur Leukocyte Esterase (Negative) Urine RBC (0-5) /hpf Urine WBC (0-5) /hpf Urine WBC Clumps (None) /hpf Ur Squamous Epith Cells (0-4) /hpf Amorphous Sediment (None) /hpf Urine Bacteria (None) /hpf Urine Mucus (None) /hpf Urine Opiates Screen (NotDetected) 01/27/17 01/27/17 01/27/17 Range/Units 13:45 14:50 19:32 WBC (3.8-10.6) k/uL RBC (3.80-5.40) m/uL Hgb (11.4-16.0) gm/dL Hct (34.0-46.0) % RDW (11.5-15.5) % Plt Count (150-450) k/uL Lymphocytes # (1.0-4.8) k/uL Lymphocytes # (Manual) (1.0-4.8) k/uL Nucleated RBCs (0-0) /100 WBC APTT 18.3 L (22.0-30.0) sec Sodium (137-145) mmol/L Chloride (98-107) mmol/L BUN (7-17) mg/dL Creatinine (0.52-1.04) mg/dL Calcium (8.4-10.2) mg/dL Troponin I 0.126 H* (0.000-0.034) ng/mL Total Protein (6.3-8.2) g/dL Albumin (3.5-5.0) g/dL Triglycerides (<150) mg/dL Cholesterol (<200) mg/dL LDL Cholesterol, Calc (0-99) mg/dL Urine Appearance Cloudy H (Clear) Urine Protein Trace H (Negative) Urine Blood Small H (Negative) Ur Leukocyte Esterase Moderate H (Negative) Urine RBC 8 H (0-5) /hpf Urine WBC 42 H (0-5) /hpf Urine WBC Clumps Occasional H (None) /hpf Ur Squamous Epith Cells 5 H (0-4) /hpf Amorphous Sediment Rare H (None) /hpf Urine Bacteria Many H (None) /hpf Urine Mucus Occasional H (None) /hpf Urine Opiates Screen Detected H (NotDetected) 01/28/17 01/28/17 01/28/17 Range/Units 01:55 05:40 05:40 WBC 3.0 L (3.8-10.6) k/uL RBC 3.15 L (3.80-5.40) m/uL Hgb 10.0 L D (11.4-16.0) gm/dL Hct 28.9 L (34.0-46.0) % RDW 17.2 H (11.5-15.5) % Plt Count 51 L (150-450) k/uL Lymphocytes # 0.4 L (1.0-4.8) k/uL Lymphocytes # (Manual) (1.0-4.8) k/uL Nucleated RBCs (0-0) /100 WBC APTT (22.0-30.0) sec Sodium (137-145) mmol/L Chloride (98-107) mmol/L BUN (7-17) mg/dL Creatinine (0.52-1.04) mg/dL Calcium (8.4-10.2) mg/dL Troponin I 0.103 H* (0.000-0.034) ng/mL Total Protein (6.3-8.2) g/dL Albumin (3.5-5.0) g/dL Triglycerides 246 H (<150) mg/dL Cholesterol 218 H (<200) mg/dL LDL Cholesterol, Calc 115 H (0-99) mg/dL Urine Appearance (Clear) Urine Protein (Negative) Urine Blood (Negative) Ur Leukocyte Esterase (Negative) Urine RBC (0-5) /hpf Urine WBC (0-5) /hpf Urine WBC Clumps (None) /hpf Ur Squamous Epith Cells (0-4) /hpf Amorphous Sediment (None) /hpf Urine Bacteria (None) /hpf Urine Mucus (None) /hpf Urine Opiates Screen (NotDetected) 01/28/17 Range/Units 05:40 WBC (3.8-10.6) k/uL RBC (3.80-5.40) m/uL Hgb (11.4-16.0) gm/dL Hct (34.0-46.0) % RDW (11.5-15.5) % Plt Count (150-450) k/uL Lymphocytes # (1.0-4.8) k/uL Lymphocytes # (Manual) (1.0-4.8) k/uL Nucleated RBCs (0-0) /100 WBC APTT (22.0-30.0) sec Sodium 129 L (137-145) mmol/L Chloride (98-107) mmol/L BUN 18 H (7-17) mg/dL Creatinine 0.49 L (0.52-1.04) mg/dL Calcium 7.9 L (8.4-10.2) mg/dL Troponin I (0.000-0.034) ng/mL Total Protein 4.8 L (6.3-8.2) g/dL Albumin 2.6 L (3.5-5.0) g/dL Triglycerides (<150) mg/dL Cholesterol (<200) mg/dL LDL Cholesterol, Calc (0-99) mg/dL Urine Appearance (Clear) Urine Protein (Negative) Urine Blood (Negative) Ur Leukocyte Esterase (Negative) Urine RBC (0-5) /hpf Urine WBC (0-5) /hpf Urine WBC Clumps (None) /hpf Ur Squamous Epith Cells (0-4) /hpf Amorphous Sediment (None) /hpf Urine Bacteria (None) /hpf Urine Mucus (None) /hpf Urine Opiates Screen (NotDetected) Assessment and Plan Plan: 1. Altered mental status changes: Workup in progress. Possibly a metabolic encephalopathy related to UTI with sepsis. 2 CT scans of the brain completed with no acute changes. Neurology has been consulted. Case discussed with neurology this morning. Spinal tap by anesthesiology was ordered. Blood cultures pending. 2. UTI with sepsis: Antibiotics changed to Zosyn and Levaquin. Await urine culture. Infectious disease consulted 3. Sepsis with temperature high as 102 and tachycardia. Increase IV fluids to normal saline at 150 mL an hour. Lactic acid normal 4. Hyponatremia: Patient placed on normal saline. Repeat labs in a.m. 5. Essential hypertension: Blood pressure stable. Continue lisinopril and Norvasc 6. History of breast cancer status post chemotherapy and bilateral mastectomy 7. History of brain cancer with brain tumor removed about 6 weeks ago. Last radiation treatment on Wednesday last week 8. Elevated troponins evaluated by cardiology. They felt that this was not consistent with acute coronary syndrome EKG had shown sinus tachycardia with a right bundle branch block. They did order echo with Doppler 9. Thrombocytopenia and leukopenia: Oncology has been consulted GI prophylaxis Pepcid and DVT prophylaxis SCDs Time with Patient: Greater than 30 (Greater than 50% of the total time spent in counseling and coordination of care.I performed an examination of the patient and discussed their management with the physician Java Support Engineer. I have reviewed the Physician Java Support Engineer's notes and agree with the documented findings and plan of care)
--- NOTE | 2017-01-28 12:09 | ECHOF ---
Referral Reason:abn trop MEASUREMENTS -------- HEIGHT: 152.4 cm WEIGHT: 60.3 kg BP: 120/67 IVSd: 1.4 cm (0.6 - 1.1) LVIDd: 2.2 cm (3.9 - 5.3) LVPWd: 1.3 cm (0.6 - 1.1) IVSs: 1.8 cm LVIDs: 1.2 cm LVPWs: 1.4 cm Ao Diam: 3.3 cm (2.0 - 3.7) AV Cusp: 1.5 cm (1.5 - 2.6) LA Diam: 2.6 cm (2.7 - 3.8) MV EXCURSION: 13.059 mm (> 18.000) MV EF SLOPE: 49 mm/s (70 - 150) EPSS: 0.2 cm MV E Jordan: 0.64 m/s MV DecT: 136 ms MV A Jordan: 0.76 m/s MV E/A Ratio: 0.84 RAP: 5.00 mmHg RVSP: 28.13 mmHg FINDINGS -------- Resting tachycardia (HR>100bpm). This was a technically good study. There is moderate concentric left ventricular hypertrophy. Overall left ventricular systolic function is normal with, an EF between 55 - 60 %. The right ventricle is normal in size and function. The left atrium is normal in size. The right atrium is normal in size. Aortic valve is trileaflet and is mildly thickened. There is mild aortic regurgitation. The mitral valve leaflets are mildly thickened. Mild mitral regurgitation is present. Mild tricuspid regurgitation present. The right ventricular systolic pressure, as measured by Doppler, is 28.13mmHg. Pulmonic valve appears structurally normal. The aortic root size is normal. There is a trivial pericardial effusion present. CONCLUSIONS -------- 1. Resting tachycardia (HR>100bpm). 2. The mitral valve leaflets are mildly thickened. 3. Mild mitral regurgitation is present. 4. Mild tricuspid regurgitation present. 5. The right ventricular systolic pressure, as measured by Doppler, is 28.13mmHg. 6. Pulmonic valve appears structurally normal. 7. The aortic root size is normal. 8. There is a trivial pericardial effusion present. 9. This was a technically good study. 10. There is moderate concentric left ventricular hypertrophy. 11. Overall left ventricular systolic function is normal with, an EF between 55 - 60 %. 12. The right ventricle is normal in size and function. 13. The left atrium is normal in size. 14. The right atrium is normal in size. 15. Aortic valve is trileaflet and is mildly thickened. 16. There is mild aortic regurgitation. INFECTION PREVENTION SPECIALIST: Gi Gama RDCS
[2017-01-28] MEDS: LORazepam 2 MG/ML SYRINGE IV PRN (13:06)
[2017-01-28] MEDS: levETIRAcetam IV 500 MG in SODIUM CHLORIDE 0.9% 100 ML IVPB SCH ×2 (13:27→20:48)
[2017-01-28] MEDS: PIPERACILLIN-TAZOBACTAM 3.375 GM in DEXTROSE/WATER 1 50ML.BAG IVPB SCH (16:06)
[2017-01-28] MEDS: PRAVASTATIN SODIUM 20 MG TAB PO SCH (20:28)
[2017-01-28] MEDS ORDERED: IV VANCOMYCIN PER PHARMACY 1 EACH MISC MISCELLANE PRN (20:32)
[2017-01-28] MEDS: VANCOMYCIN 1,000 MG in SODIUM CHLORIDE 0.9% 250 ML IVPB SCH (21:57)
[2017-01-29] MEDS: PIPERACILLIN-TAZOBACTAM 3.375 GM in DEXTROSE/WATER 1 50ML.BAG IVPB SCH ×3 (01:05→13:46)
[2017-01-29] MEDS: SODIUM CHLORIDE 0.9% 1,000 ML IV SCH (02:29)
[2017-01-29] MEDS ORDERED: FUROSEMIDE 10 MG/ML 2 ML VIAL IV ONE (03:45)
[2017-01-29] MEDS ORDERED: FUROSEMIDE 10 MG/ML 4 ML VIAL ONE (03:52)
[2017-01-29] MEDS ORDERED: SODIUM CHLORIDE 0.9% 1,000 ML IV SCH (04:00)
[2017-01-29] MEDS: VANCOMYCIN 1,000 MG in SODIUM CHLORIDE 0.9% 250 ML IVPB SCH ×2 (06:07→22:35)
[2017-01-29] MEDS: PANTOPRAZOLE 40 MG TABLET PO SCH (06:43)
[2017-01-29 06:56] LABS: ALT 50 U/L (9-52); AST 25 U/L (14-36); Alkaline Phosphatase 63 U/L (38-126); Anion Gap 11 mmol/L; Blood Urea Nitrogen 14 mg/dL (7-17); Calcium 8.4 mg/dL (8.4-10.2); Carbon Dioxide 20 mmol/L (22-30); Chloride 102 mmol/L (98-107); Glucose 67 mg/dL (74-99); Non-African American GFR(MDRD) >60 (>60 ml/min/1.73 sqM); Potassium 3.3 mmol/L (3.5-5.1); Sodium 133 mmol/L (137-145)
[2017-01-29 07:01] LABS: Anisocytosis Slight; Basophils % (A) 0 %; CH 32.2; CHCM 35.5; Eosinophils % (A) 0 %; HCT 29.7 % (34.0-46.0); HDW 3.26; HGB 10.3 gm/dL (11.4-16.0); Luc # (Auto) 0.05; Luc % (Auto) 2; Lymphocytes # (A) 0.5 k/uL (1.0-4.8); Lymphocytes % (A) 21 %; MCH 31.5 pg (25.0-35.0); MCHC 34.6 g/dL (31.0-37.0); Mean Platelet Volume 7.2; Monocytes # (A) 0.1 k/uL (0-1.0); Monocytes % (A) 6 %; Neutrophils # (A) 1.5 k/uL (1.3-7.7); Neutrophils % (A) 70 %; RBC 3.27 m/uL (3.80-5.40); RDW 17.7 % (11.5-15.5); WBC 2.2 k/uL (3.8-10.6); WBC (Perox) 2.16
--- NOTE | 2017-01-29 07:38 | CONS ---
DATE OF CONSULTATION: 01/28/2017 CHIEF COMPLAINT: Altered mental status. HISTORY OF PRESENT ILLNESS: Mrs. Luna is a pleasant 71-year-old female who is being evaluation by the neurology service per the request of Dr. Bishop for altered mental status. The patient was brought in to [facility] Emergency Room for progressively worsening confusion which started a few weeks ago. The patient does have history of brain cancer, which was surgically resected 6 weeks ago. She also received chemotherapy and radiation therapy for this. The patient was discharged several days after the surgery and according to the family, her mentation and speech improved slowly postop. Overall, they believe she had about a 65% improvement. As for her strength, this has been getting worse slowly over the past 3 to 4 weeks. She is now requiring significant assistance for minimal ambulation. The patient has also been confused, which initially prompted he arrival to the hospital. The patient was found to be afebrile and she also had evidence of a urinary tract infection on her urinalysis. She did have a CT scan of the brain on arrival, which showed no acute findings. Postsurgical changes were seen in the left frontal regio along with generalized atrophy and small vessel ischemic changes. A repeat CT scan of the brain was done this morning which showed no changes from her admission. Her urinalysis showed 42 WBC no moderate leukocyte esterase. Her CBC showed pancytopenia with a WBC of 3.0, hemoglobin 10, hematocrit 29% and platelet count at 51,000. Her comprehensive metabolic profile showed hyponatremia at 129 and reduced protein and albumin 4.8 and 2.6 respectively. Her fasting lipid panel showed mild dyslipidemia with a cholesterol of 246 and an LDL 115. Since her admission, she has had a couple of episodes of fever spikes. Currently, the patient has a Calles catheter placed, because she is having some urinary retention. At the time of my evaluation, the patient is lying in her bed and appears to be in no acute distress. She is more awake and following simple commands now. PAST MEDICAL HISTORY: Breast cancer, brain cancer, dyslipidemia, asthma, hypertension, arthritis, history of mastectomy, history of brain tumor resection, , hysterectomy, tubal ligation, joint replacement surgeries. SOCIAL HISTORY: The patient is a former smoker. She rarely drinks alcohol. She denies any drug use. FAMILY HISTORY: Positive for cancer. HOME MEDICATIONS: Reviewed in the chart. ALLERGIES: HYDROCODONE and HYDROMORPHONE. REVIEW OF SYSTEMS: Unable to obtain due to confusion. PHYSICAL EXAM: Vital signs show a temperature of 97.4 with a T-max of 102.8. Pulse is 111, respirations 18, blood pressure 146/99. GENERAL APPEARANCE: The patient is a well-developed female who appears to be in no acute distress, but is having occasional chills. HEENT: Post surgical changes are seen in the left frontal parietal region. No obvious facial asymmetry is seen. Neck is supple with no masses felt. CARDIOVASCULAR: Regular rate and rhythm. ABDOMEN: Nontender, nondistended. Extremities showed trace edema with no clubbing seen. NEUROLOGICAL EXAM: The patient is awake, but appears to be drowsy. She does follow simple commands. She appears to have generalized weakness that it is much more significant in the lower extremities. Strength is 2 out of 5 in the lower extremities and 4 out of 5 in the upper extremities. No seizure-like activity is seen. IMPRESSION: 1. Altered mental status. 2. Fever. 3. Generalized weakness. 4. Brain tumor with recent resection. 5. Acute urinary tract infection. RECOMMENDATION: The patient's altered mental status appears to be due to infectious encephalopathy. She does have an acute urinary tract infection and continues to have some fevers. Although she does not have any nuchal rigidity, due to the recent intracranial surgery and given her altered mental status and fevers, I do recommend a lumbar puncture for CSF workup. Infectious Disease has been consulted. According to the nursing staff, Anesthesiology has been consulted for the lumbar puncture. As for her generalized weakness, etiology is unknown at this time but this could be also related to her comorbidities. Physical therapy has been consulted. The patient is on Keppra, but she has never had a seizure. I believe she has been placed on this for seizure prevention given her recent tumor resection. Continue Keppra at her home dose. Continue antibiotic therapy. I will continue to follow with you. Further recommendations to follow. Thank you for allowing me to participate in the care of your patient. If you have any questions, please feel free to contact me.
[2017-01-29] MEDS ORDERED: Potassium Replacement Protocol 1 EACH MISC MISCELLANE PRN ×2 (07:46→07:48)
[2017-01-29] MEDS ORDERED: POTASSIUM CHLORIDE 10 MEQ in WATER FOR INJECTION 1 100ML.BAG IVPB SCH (08:00)
--- NOTE | 2017-01-29 08:04 | CONS ---
DATE OF CONSULTATION: 01/28/2017 Reason for consultation is fever, UTI, and sepsis. HISTORY OF PRESENT ILLNESS: The patient with The past medical history is significant for breast cancer, status post bilateral mastectomy with chemotherapy. Patient also has a history of mets to the brain, status post removal of the brain mets about 6 weeks. Patient's radiation therapy has been on Wednesday. Patient apparently has been getting very weak and tired, with no energy last for a few days or weeks; however, the patient was unable to be managed at home by the family and they brought the patient to the hospital. On arrival to the ER, patient did have elevated fever of 99.5, later on she did spike a fever of 101.4, another fever of 102.8 this morning. Patient noticed to be very weak and lethargic. Her white count was 3,000. Urine was slightly positive. She was initiated with Rocephin; however, subsequently was able to switch over to Zosyn and Levaquin. The patient did have a chest x-ray, report for no acute process. At the time of my evaluation with afternoon, the patient seems to be slightly weak and lethargic. She notes that she was at the [facility]. She denies any headache to me or any redness or sore throat and no chest pain or shortness of breath or cough. No abdominal pain or any diarrhea REVIEW OF SYSTEMS: Positive for weakness and fever. EYES: No complaint. ENT: No complaint. RESPIRATORY: No complaint. CARDIOVASCULAR: No complaint. GENITOURINARY: No complaint. GASTROINTESTINAL: No complaint. MUSCULOSKELETAL: No complaint. INTEGUMENTARY: No complaint. NEUROLOGICAL: No complaint. Past medical history significant for metastatic breast cancer, hypertension, hyperlipidemia, osteoarthritis, asthma, thyroid nodules and diverticulosis. PAST SURGICAL HISTORY: Bilateral mastectomy, , hysterectomy, left intraventricular Mediport and total right hip. SOCIAL HISTORY: Remote history of smoking. Rarely drinks, no drug use. FAMILY HISTORY: Daughter with a history of breast cancer. Mother with a history of breast cancer, at the age of 52 from it. Father from old age. Allergies to HYDROCODONE and HYDROMORPHONE. Medications include the patient is currently on Tylenol, Norvasc, aspirin, Pepcid, Lamictal, levofloxacin, Zestril, Ativan, Namenda, Nitrostat, Protonix, pip-tazobactam. On examination, blood pressure is 146/99 with a pulse of 109, temperature 97.4, she is 93% on 2 L nasal cannula. General description is an elderly female lying in bed in no distress. No tachypnea or respiration use. HEENT EXAMINATION: Slight pallor, no scleral icterus. Oral mucosa is moist. NECK: Trachea central. There is no thyromegaly. LUNGS: Unlabored breathing. Clear to auscultation anteriorly. No wheeze, no crackles. HEART: S1, S2. Regular rate and rhythm. ABDOMEN: Soft, no tenderness. No guarding or rigidity. EXTREMITIES: No edema of the feet. SKIN: No rash or mass palpable. Examination of the incision of the left frontal area seems to be healed without evidence of any swelling or redness. NEUROLOGICAL: The patient is awake, alert, oriented x3 , mood and affect normal. LABS: Hemoglobin is 10, white count of 3.3 with a BUN of 18, creatinine 0.49. Urine was slightly positive. Urine drug screen positive for opiates. Chest x-ray reported negative for any pneumonia. DIAGNOSTIC IMPRESSION AND PLAN: Patient came to the hospital with weakness and lethargy with sepsis and patient did have a fever of 101.4 degrees Fahrenheit. the source questionable of urinary tract infection. However, urine is not significantly positive and no significant symptoms reported by the patient. The other etiology could have been DIRECTOR MICROBIOLOGY infection. The patient did have recent brain surgery, however, patient did have CT scan with no acute change. The patient denies significant headache, which could be unusual in a patient with meningitis. The patient did have Mediport underlying central line infection needs to be ruled out as well. PLAN: 1. Await the CSF examination for which Anesthesia has been consulted. 2. Continue the patient on Zosyn or discontinue Levaquin and add vancomycin. 3. Depending upon the clinical response and cultures, will adjust antibiotics further. Family was present at the bedside. Their questions were answered. NATIVIDAD
[2017-01-29 08:13] LABS: Glucose,Whole Blood 72 mg/dL (75-99)
[2017-01-29] MEDS: POTASSIUM CHLORIDE 10 MEQ, LIDOCAINE 2% INJ 10 MG in SODIUM CHLORIDE 0.9% 100 ML IV SCH ×2 (08:26→08:28)
[2017-01-29] MEDS: levETIRAcetam IV 500 MG in SODIUM CHLORIDE 0.9% 100 ML IVPB SCH (08:27)
[2017-01-29] MEDS: FAMOTIDINE 20 MG TAB PO SCH (08:28)
[2017-01-29] MEDS: MEMANTINE 10 MG TAB PO SCH ×2 (08:28→22:12)
[2017-01-29] MEDS: amLODIPine 5 MG TAB PO SCH (08:28)
[2017-01-29] MEDS: LISINOPRIL 10 MG TAB PO SCH ×2 (08:28→22:12)
[2017-01-29] MEDS: ASPIRIN 325 MG TAB PO SCH (08:28)
[2017-01-29] MEDS ORDERED: SODIUM CHLORIDE 0.9% 1,000 ML IV ONE (11:21)
[2017-01-29 12:08] LABS: Glucose,Whole Blood 83 mg/dL (75-99)
--- NOTE | 2017-01-29 12:12 | P.PCN ---
Date of Procedure: 01/29/17 Preoperative Diagnosis: Postoperative Diagnosis: Procedure(s) Performed: Procedure=1-lumbar puncture . Preoperative diagnoses= 1-altered mental status. 2-sepsis Postoperative diagnosis= same as pre op diagnosis Anesthesia= local lidocaine infiltration 1% 3 mL for skin and subcu infiltration. Condition= critical. Complications=none. Indication for the procedure= patient with altered mental status/sepsis and she was referred to have a lumbar puncture for diagnostic study procedure risk and benefits and alternatives discussed with the patient and she agreed with the preceding, Description of the procedure= patient in the procedure room lateral position ( left side down ) ,and monitors applied, the back prepped with chlorhexidine -3 , sterile technique, local infiltration of the skin and subcu interstitial with lidocaine 1% 3 mL, then 22-gauge quickie Needle advanced slowly at L4 5 interlaminar space, the cerebrospinal fluid was clear, and no heme no paresthesia, a total of 9 mL of clear cerebrospinal fluid collected in 4 different tubes, the needle removed, Band-Aid applied , patient tolerated the procedure well without any complications, and further management as per her neurologist Implants: Indications for Procedure: Operative Findings: Description of Procedure:
--- NOTE | 2017-01-29 12:15 | P.PN ---
Subjective Principal diagnosis: Altered Mental status This a 71-year-old female, continues to be verbally unresponsive and most of the history was obtained from the medical record. Patient has history of hypertension, hyperlipidemia, hypothyroidism, asthma, right breast carcinoma status post chemotherapy and bilateral mastectomy, recent brain surgery 6 weeks ago for tumor removal. She was apparently brought to the hospital because of decreased responsiveness and altered mental status. Cardiology consult patient was requested because of abnormal troponins. Upon examination today, patient remains unresponsive, lying flat in bed, eyes open but nonverbal. Objective - Vital Signs Vital signs: Vital Signs Temp 99.9 F H 01/29/17 08:00 Pulse 100 01/29/17 11:56 Resp 18 01/29/17 11:56 BP 106/55 01/29/17 11:56 Pulse Ox 97 01/29/17 11:56 Intake & Output 01/28/17 01/29/17 01/29/17 18:59 06:59 18:59 Intake Total 1750 2750 0 Output Total 2400 2200 Balance -650 550 0 Weight 60 kg Intake: IV 0 Intake, IV Titration 1750 2750 Amount ACETAMINOPHEN IV (For NPO 100 100 ) 1,000 mg In Empty Bag 1 bag @ 400 mls/hr IVPB ONCE PRN Rx#:[id number] Levofloxacin 500Mg-D5w 100 Pmx 500 mg In Dextrose/ Water 1 100ml.bag @ 100 mls/hr IVPB Q24H [facility] Rx#: [id number] Piperacillin-Tazobactam 3 50 50 .375 gm In Dextrose/Water 1 50ml.bag @ 12.5 mls/hr IVPB Q8HR [facility] Rx#: [id number] Sodium Chloride 0.9% 1, 1350 1500 000 ml @ 150 mls/hr IV . Q6H40M [facility] Rx#:[id number] Vancomycin 1,000 mg In 1000 Sodium Chloride 0.9% 250 ml @ 125 mls/hr IVPB BID@ 0600,2000 [facility] Rx#: [id number] cefTRIAXone 1,000 mg In 50 Sodium Chloride 0.9% 50 ml @ 100 mls/hr IVPB Q24HR [facility] Rx#:[id number] levETIRAcetam IV 500 mg 100 100 In Sodium Chloride 0.9% 100 ml @ 400 mls/hr IVPB Q12HR [facility] Rx#:[id number] Output: Urine 2400 2200 Other: Voiding Method Indwelling Catheter Indwelling Catheter # Voids 0 - Exam PHYSICAL EXAMINATION: HEENT: Head is atraumatic, normocephalic. Pupils equal, round. Neck is supple. There is no elevated jugular venous pressure. HEART EXAMINATION: Heart sounds regular, S1 and S2 with a systolic murmur. CHEST EXAMINATION: Lungs are clear to auscultation anteriorly. No chest wall tenderness is noted on palpation or with deep breathing. ABDOMEN: Soft, nontender. Bowel sounds are heard. No organomegaly noted. EXTREMITIES: 2+ peripheral pulses with no evidence of peripheral edema and no calf tenderness noted. NEUROLOGIC patient is awake, nonverbal. . - Labs CBC & Chem 7: 01/29/17 06:03 01/29/17 06:03 Labs: Abnormal Lab Results - Last 24 Hours (Table) 01/29/17 01/29/17 01/29/17 Range/Units 06:03 06:03 08:11 WBC 2.2 L (3.8-10.6) k/uL RBC 3.27 L (3.80-5.40) m/uL Hgb 10.3 L (11.4-16.0) gm/dL Hct 29.7 L (34.0-46.0) % RDW 17.7 H (11.5-15.5) % Plt Count 44 L* (150-450) k/uL Lymphocytes # 0.5 L (1.0-4.8) k/uL Sodium 133 L (137-145) mmol/L Potassium 3.3 L (3.5-5.1) mmol/L Carbon Dioxide 20 L (22-30) mmol/L Glucose 67 L (74-99) mg/dL POC Glucose (mg/dL) 72 L (75-99) mg/dL Total Protein 5.0 L (6.3-8.2) g/dL Albumin 2.8 L (3.5-5.0) g/dL Microbiology - Last 24 Hours (Table) 01/28/17 11:25 Urine Culture - Final Urine,Catheterized 01/28/17 05:40 Blood Culture - Preliminary Blood No Growth after 24 hours Assessment and Plan Plan: Assessment and plan #1 mental status changes, evidence of fever, temperature greater than 101, blood cultures sent #2 history of right breast cancer with chemotherapy and bilateral mastectomy, most recently approximately 6 weeks ago patient underwent tumor removal of the brain #3 hypertension #4 hyperlipidemia #5 hypothyroidism #6 abnormal troponins, not consistent with acute coronary syndrome From cardiology's perspective, echocardiogram is reviewed and shows an ejection fraction of 55-60%. At this time we'll follow the patient on an as-needed basis. Please do not hesitate to call for questions. GPS FIELD DATA COLLECTOR note has been reviewed, I agree with a documented findings and plan of care. Patient was seen and examined.
[2017-01-29] MEDS: DEXTROSE 5%-0.45% NACL 1,000 ML IV SCH (14:57)
[2017-01-29 15:02] LABS: Glucose,CSF 35 mg/dL (40-70)
--- NOTE | 2017-01-29 15:39 | P.PN ---
Subjective This is a 71-year-old female, patient of Dr. Crowley. She has a known past medical history of breast cancer with bilateral mastectomy requiring chemotherapy, brain cancer with brain tumor removed about 6 weeks ago. Last radiation treatment was Wednesday of last week. Patient also has a history of hypertension, hyperlipidemia, GERD and was a former smoker. Patient has been living at home initially had been doing okay working with physical therapy. Over the last couple of weeks patient has declined physically. She was unable to stand. She was having falls. Started having decrease in appetite. Yesterday patient was becoming more lethargic. Family was concerned and brought her into the emergency room for further evaluation. She was found have a temp of 101.4 heart rate of 116. There was evidence of a UTI. She was initially started on Rocephin. Antibiotic were switched to Zosyn and Levaquin subsequently Levaquin was discontinued and she was started on IV vancomycin infectious disease consultation is following. Patient was evaluated by neurology lumbar puncture was ordered and results are still pending EEG is pending Objective - Vital Signs Vital signs: Vital Signs Temp 98.1 F 01/29/17 15:28 Pulse 94 01/29/17 15:28 Resp 20 01/29/17 15:28 BP 104/66 01/29/17 15:28 Pulse Ox 97 01/29/17 15:28 Intake & Output 01/28/17 01/29/17 01/29/17 18:59 06:59 18:59 Intake Total 1750 2750 350 Output Total 2400 2200 800 Balance -650 550 -450 Weight 60 kg 60 kg Intake: IV 0 Intake, IV Titration 1750 2750 350 Amount ACETAMINOPHEN IV (For NPO 100 100 ) 1,000 mg In Empty Bag 1 bag @ 400 mls/hr IVPB ONCE PRN Rx#:[id number] Dextrose 5%-0.45% NaCl 1, 0 000 ml @ 50 mls/hr IV . Q20H [facility] Rx#:[id number] Levofloxacin 500Mg-D5w 100 Pmx 500 mg In Dextrose/ Water 1 100ml.bag @ 100 mls/hr IVPB Q24H [facility] Rx#: [id number] Piperacillin-Tazobactam 3 50 50 .375 gm In Dextrose/Water 1 50ml.bag @ 12.5 mls/hr IVPB Q8HR [facility] Rx#: [id number] Potassium Chloride 10 meq 200 Lidocaine 2% Inj 10 mg In Sodium Chloride 0.9% 100 ml @ 100 mls/hr IV Q1HR [facility] Rx#:[id number] Sodium Chloride 0.9% 1, 1350 1500 000 ml @ 150 mls/hr IV . Q6H40M [facility] Rx#:[id number] Sodium Chloride 0.9% 1, 50 000 ml As IV .[facility] Rx#:[id number] Vancomycin 1,000 mg In 1000 0 Sodium Chloride 0.9% 250 ml @ 125 mls/hr IVPB BID@ 0600,2000 [facility] Rx#: [id number] cefTRIAXone 1,000 mg In 50 Sodium Chloride 0.9% 50 ml @ 100 mls/hr IVPB Q24HR [facility] Rx#:[id number] levETIRAcetam IV 500 mg 100 100 100 In Sodium Chloride 0.9% 100 ml @ 400 mls/hr IVPB Q12HR [facility] Rx#:[id number] Oral 0 Output: Urine 2400 2200 800 Other: Voiding Method Indwelling Catheter Indwelling Catheter # Voids 0 0 - Exam Patient is somnolent able to wake up with stimuli able to speak a few words and then go back to sleep HEENT with scar of recent surgery otherwise no abnormality seen Neck is supple no JVD no goiter no lymphadenopathy Chest exam reveals a few scattered crackles no wheezing Cardiac exam reveals regular heart sounds S1 and S2 no gallops no murmurs Abdomen is soft nontender no organomegaly Extremity exam reveals no edema no cyanosis or clubbing Neurological examination reveals no gross focal deficit patient is somnolent but has no focal neurological deficit - Labs CBC & Chem 7: 01/29/17 06:03 01/29/17 06:03 Labs: Abnormal Lab Results - Last 24 Hours (Table) 01/29/17 01/29/17 01/29/17 Range/Units 06:03 06:03 08:11 WBC 2.2 L (3.8-10.6) k/uL RBC 3.27 L (3.80-5.40) m/uL Hgb 10.3 L (11.4-16.0) gm/dL Hct 29.7 L (34.0-46.0) % RDW 17.7 H (11.5-15.5) % Plt Count 44 L* (150-450) k/uL Lymphocytes # 0.5 L (1.0-4.8) k/uL Sodium 133 L (137-145) mmol/L Potassium 3.3 L (3.5-5.1) mmol/L Carbon Dioxide 20 L (22-30) mmol/L Glucose 67 L (74-99) mg/dL POC Glucose (mg/dL) 72 L (75-99) mg/dL Total Protein 5.0 L (6.3-8.2) g/dL Albumin 2.8 L (3.5-5.0) g/dL CSF Glucose (40-70) mg/dL CSF Total Protein (12-60) mg/dL 01/29/17 Range/Units 11:40 WBC (3.8-10.6) k/uL RBC (3.80-5.40) m/uL Hgb (11.4-16.0) gm/dL Hct (34.0-46.0) % RDW (11.5-15.5) % Plt Count (150-450) k/uL Lymphocytes # (1.0-4.8) k/uL Sodium (137-145) mmol/L Potassium (3.5-5.1) mmol/L Carbon Dioxide (22-30) mmol/L Glucose (74-99) mg/dL POC Glucose (mg/dL) (75-99) mg/dL Total Protein (6.3-8.2) g/dL Albumin (3.5-5.0) g/dL CSF Glucose 35 L (40-70) mg/dL CSF Total Protein 125 H (12-60) mg/dL Microbiology - Last 24 Hours (Table) 01/28/17 10:41 Blood Culture - Preliminary Blood No Growth after 24 hours 01/28/17 10:40 Blood Culture - Preliminary Blood No Growth after 24 hours 01/28/17 11:25 Urine Culture - Final Urine,Catheterized 01/28/17 05:40 Blood Culture - Preliminary Blood No Growth after 24 hours Assessment and Plan Plan: 1. Altered mental status changes: Workup in progress. Possibly a metabolic encephalopathy related to UTI with sepsis. 2 CT scans of the brain completed with no acute changes. Neurology has been consulted. Case discussed with neurology this morning. Spinal tap by anesthesiology was ordered. Blood cultures and urine culture are negative. EEG was ordered to rule out seizure activity patient is maintained on Keppra 500 IV twice daily 2. UTI with sepsis: Antibiotics changed to Zosyn and Levaquin. Await urine culture. Infectious disease consulted 3. Sepsis with temperature high as 102 and tachycardia. Increase IV fluids to normal saline at 150 mL an hour. Lactic acid normal 4. Hyponatremia: Patient placed on normal saline. Repeat labs in a.m. 5. Essential hypertension: Blood pressure stable. Continue lisinopril and Norvasc 6. History of breast cancer status post chemotherapy and bilateral mastectomy 7. History of brain cancer with brain tumor removed about 6 weeks ago. Last radiation treatment on Wednesday last week 8. Elevated troponins evaluated by cardiology. They felt that this was not consistent with acute coronary syndrome EKG had shown sinus tachycardia with a right bundle branch block. They did order echo with Doppler 9. Thrombocytopenia and leukopenia: Oncology has been consulted 10. Patient is somnolent and is unable to take any oral medications she is kept nothing by mouth and is receiving IV medications Today patient was seen and examined case was discussed was the to family member at bedside possibility of transferring patient to a [facility] was discussed however they were not in favor of that at this time. Continue was current IV antibiotics continue with IV Keppra awaiting further input from neurology at this time.
[2017-01-29 16:05] LABS: Appearance,CSF Clear
--- NOTE | 2017-01-29 16:14 | P.PN ---
Subjective Principal diagnosis: Altered mental status This is a pleasant 71-year-old female continuing be evaluated by the neurology service for altered mental status. She was brought to the [facility] emergency room for progressive confusion for a couple weeks. She has a history of brain cancer with surgical resection about 6 weeks ago. She has received chemotherapy and radiation for this and for breast cancer. We'll test her 4 weeks she has been having some worsening weakness. She has also been confused. She has been febrile during this admission has being treated for urinary tract infection. She had a computed tomography scan of the brain upon arrival and showed no acute intracranial abnormalities. It did show postsurgical changes in the left frontal region with generalized atrophy and small vessel ischemic changes. Her repeat CAT scan was done and showed an unchanged except study. She did have a lumbar puncture done today with CSF studies. We are awaiting those results. Cardiology has evaluated her due to some elevated troponin levels they do not think this is due to any significant cardiac etiology. She continues to be less responsive than normal and significantly weakened. We have ordered an EEG and at the time of my exam this has not been accomplished yet. Objective - Vital Signs Vital signs: Vital Signs Temp 98.1 F 01/29/17 15:28 Pulse 94 01/29/17 15:28 Resp 20 01/29/17 15:28 BP 104/66 01/29/17 15:28 Pulse Ox 97 01/29/17 15:28 Intake & Output 01/28/17 01/29/17 01/29/17 18:59 06:59 18:59 Intake Total 1750 2750 350 Output Total 2400 2200 800 Balance -650 550 -450 Weight 60 kg 60 kg Intake: IV 0 Intake, IV Titration 1750 2750 350 Amount ACETAMINOPHEN IV (For NPO 100 100 ) 1,000 mg In Empty Bag 1 bag @ 400 mls/hr IVPB ONCE PRN Rx#:[id number] Dextrose 5%-0.45% NaCl 1, 0 000 ml @ 50 mls/hr IV . Q20H [facility] Rx#:[id number] Levofloxacin 500Mg-D5w 100 Pmx 500 mg In Dextrose/ Water 1 100ml.bag @ 100 mls/hr IVPB Q24H [facility] Rx#: [id number] Piperacillin-Tazobactam 3 50 50 .375 gm In Dextrose/Water 1 50ml.bag @ 12.5 mls/hr IVPB Q8HR [facility] Rx#: [id number] Potassium Chloride 10 meq 200 Lidocaine 2% Inj 10 mg In Sodium Chloride 0.9% 100 ml @ 100 mls/hr IV Q1HR [facility] Rx#:[id number] Sodium Chloride 0.9% 1, 1350 1500 000 ml @ 150 mls/hr IV . Q6H40M [facility] Rx#:[id number] Sodium Chloride 0.9% 1, 50 000 ml As IV .STK-MED ONE Rx#:[id number] Vancomycin 1,000 mg In 1000 0 Sodium Chloride 0.9% 250 ml @ 125 mls/hr IVPB BID@ 0600,2000 [facility] Rx#: [id number] cefTRIAXone 1,000 mg In 50 Sodium Chloride 0.9% 50 ml @ 100 mls/hr IVPB Q24HR [facility] Rx#:[id number] levETIRAcetam IV 500 mg 100 100 100 In Sodium Chloride 0.9% 100 ml @ 400 mls/hr IVPB Q12HR [facility] Rx#:[id number] Oral 0 Output: Urine 2400 2200 800 Other: Voiding Method Indwelling Catheter Indwelling Catheter # Voids 0 0 - Constitutional General appearance: Present: average body habitus, no acute distress - EENT Eyes: Present: PERRLA. Absent: abnormal pupil, ptosis ENT: Present: hearing grossly normal - Neck Neck: Present: normal ROM. Absent: rigidity - Respiratory Respiratory: negative: prolonged expiration, prolonged inspiration - Cardiovascular Rhythm: regular - Gastrointestinal General gastrointestinal: Absent: distended, tenderness - Neurologic Neurologic Comment(s): The patient is awake but drowsy. She follows simple commands. There is some generalized weakness. But there is no lateralization. No tremors or seizure- like activities are seen. - Labs CBC & Chem 7: 01/29/17 06:03 01/29/17 06:03 Labs: Abnormal Lab Results - Last 24 Hours (Table) 01/29/17 01/29/17 01/29/17 Range/Units 06:03 06:03 08:11 WBC 2.2 L (3.8-10.6) k/uL RBC 3.27 L (3.80-5.40) m/uL Hgb 10.3 L (11.4-16.0) gm/dL Hct 29.7 L (34.0-46.0) % RDW 17.7 H (11.5-15.5) % Plt Count 44 L* (150-450) k/uL Lymphocytes # 0.5 L (1.0-4.8) k/uL Sodium 133 L (137-145) mmol/L Potassium 3.3 L (3.5-5.1) mmol/L Carbon Dioxide 20 L (22-30) mmol/L Glucose 67 L (74-99) mg/dL POC Glucose (mg/dL) 72 L (75-99) mg/dL Total Protein 5.0 L (6.3-8.2) g/dL Albumin 2.8 L (3.5-5.0) g/dL CSF Tot Nucleated Cells (0-5) u/L CSF Glucose (40-70) mg/dL CSF Total Protein (12-60) mg/dL 01/29/17 Range/Units 11:40 WBC (3.8-10.6) k/uL RBC (3.80-5.40) m/uL Hgb (11.4-16.0) gm/dL Hct (34.0-46.0) % RDW (11.5-15.5) % Plt Count (150-450) k/uL Lymphocytes # (1.0-4.8) k/uL Sodium (137-145) mmol/L Potassium (3.5-5.1) mmol/L Carbon Dioxide (22-30) mmol/L Glucose (74-99) mg/dL POC Glucose (mg/dL) (75-99) mg/dL Total Protein (6.3-8.2) g/dL Albumin (3.5-5.0) g/dL CSF Tot Nucleated Cells 7 H (0-5) u/L CSF Glucose 35 L (40-70) mg/dL CSF Total Protein 125 H (12-60) mg/dL Microbiology - Last 24 Hours (Table) 01/29/17 11:40 CSF Gram Stain - Preliminary Cerebral Spinal Fluid 01/28/17 10:41 Blood Culture - Preliminary Blood No Growth after 24 hours 01/28/17 10:40 Blood Culture - Preliminary Blood No Growth after 24 hours 01/28/17 11:25 Urine Culture - Final Urine,Catheterized 01/28/17 05:40 Blood Culture - Preliminary Blood No Growth after 24 hours Assessment and Plan (1) Altered mental status Status: Acute (2) Fever Status: Acute (3) Generalized weakness Status: Chronic (4) Brain tumor Status: Chronic (5) UTI (urinary tract infection) Status: Acute Plan: Patient's altered mental status appears to be due to multifactorial encephalopathy. This could be infectious and metabolic in nature. We have ordered an EEG which is still pending. We are awaiting CSF workup. Infectious disease will continue to follow. Cardiology has seen the patient and have clear done. Continue to work with physical therapy. Continue Keppra at current dose. We believe this was given prophylactically after her brain tumor resection. We will continue to follow. Continue neuro checks. I have performed a history and physical on the above patient. I have reviewed the above note, and agree.
[2017-01-29] MEDS ORDERED: RX INFO: IV CONTRAST WAS GIVEN 1 EACH MISC MISCELLANE PRN (17:03)
[2017-01-29] MEDS ORDERED: IOHEXOL 350 MG/ML 25 ML BOTTLE (ORAL USE) PO PRN (17:03)
--- NOTE | 2017-01-29 17:34 | P.CONS ---
History of Present Illness - Reason for Consult Consult date: 01/29/17 Fever, pancytopenia, breast cancer - History of Present Illness The patient is a 71-year-old lady, well known to our service. She was diagnosed with right-sided breast cancer, triple negative, initially in late 05/30. She underwent lumpectomy with the lymph node dissection in the early 07/30 revealing a 1.8 cm breast primary, with 7 lymph nodes involved including macro metastasis. She was subsequently seen in the office, and had a PET scan done which revealed no evidence of any metastatic disease. The patient was treated with adjuvant chemotherapy consisting of dose dense Adriamycin and Cytoxan, followed by dose dense Taxol. She completed treatment by around the end of 12/29. She then proceeded to radiation. The patient had multiple family members with a history of breast cancer and was actually known to be BRCA positive. Therefore bilateral mastectomy and oophorectomy were recommended. The patient was initially reluctant to the same , but subsequently did have her surgeries. She was then placed on observation. She was last seen in the office on 10/30 at which time she had no clinical evidence of recurrence. The patient then presented to the in 11/30 with the fairly sudden onset of mental status changes. She was found to have a 5.3 cm solitary brain mass, consistent with metastatic disease. She was transferred to [facility]. CT of the chest abdomen and pelvis showed no evidence of disease elsewhere. The patient therefore underwent resection followed by whole brain radiation. She is on clinical trial with memantine, given along with whole brain radiation. She completed her radiation on 01/13/17. The patient was actually doing quite well post surgery. However post radiation, she has been getting progressively weaker, but decreased responsiveness as well as weakness. She also had progressive lower extremity weakness causing inability to ambulate. She was therefore brought to the emergency room where she was found also to be febrile. The UA was abnormal. On admission, the patient was noted to have a low white count of 3, as well as platelets of 60. These have subsequently declined to 2.2 and 44 respectively. The patient has had multiple imaging studies, including CT of the brain 2, showing no new abnormality, specifically no evidence of rebound edema and midline shift, negative chest x-ray and CT of the hip, as well as negative echocardiogram. Cultures have also been negative. She is being covered by broad-spectrum antibiotics per ID. The patient has continued to have intermittent fevers, and has actually become progressively more lethargic. Therefore lumbar puncture was done today. Consult was placed for further evaluation and recommendations. Review of Systems The patient is very obtunded and not arousable. She opens her eyes off and on. Review of systems obtained from various physician notes and the R, as well as her granddaughter who is at the bedside Constitutional: Reports fatigue, Reports fever, Reports poor appetite, Reports weakness, Reports weight loss Eyes: denies blurred vision, denies pain Ears: deny: decreased hearing, ear discharge, earache, tinnitus Ears, nose, mouth and throat: Denies headache, Denies sore throat Cardiovascular: Reports decreased exercise tolerance, Reports dyspnea on exertion Respiratory: Reports dyspnea Gastrointestinal: Denies abdominal pain, Denies diarrhea, Denies nausea, Denies vomiting Genitourinary: Denies dysuria, Denies hematuria Menstruation: Reports postmenopausal Musculoskeletal: right: hip pain (Computed tomography scan is negative) Integumentary: Denies pruritus, Denies rash Neurological: Reports as per HPI, Reports balance difficulties, Reports change in mentation, Reports gait dysfunction, Reports weakness Psychiatric: Reports confusion Endocrine: Reports fatigue, Reports weight change Hematologic/Lymphatic: Reports as per HPI Past Medical History Past Medical History: Asthma, Cancer, Hyperlipidemia, Hypertension, Liver Disease, Osteoarthritis (OA) Additional Past Medical History / Comment(s): Has BRCA2 gene, RIGHT BREAST CANCER WITH chemo and RADIATION. 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 THYROID NODULES. Rectal bleed (lower) with mclean divertiulosis. History of Any Multi-Drug Resistant Organisms: None Reported Past Surgical History: Breast Surgery, Section, Hysterectomy, Joint Replacement, Tubal Ligation Additional Past Surgical History / Comment(s): 01/21/16 BILATERAL SIMPLE MASTECTOMIES. 07/17/15 SENTINEL NODE BX/AXILLARY NODE DISECTION NEEDLE LOC. RIGHT LUMPECTOMY, 09/09/15. TOTAL RT HIP. L internal jugular mediport. Past Anesthesia/Blood Transfusion Reactions: Motion Sickness Past Psychological History: No Psychological Hx Reported Additional Psychological History / Comment(s): Pt resides with her spouse. . Smoking Status: Former smoker Past Alcohol Use History: Rare Additional Past Alcohol Use History / Comment(s): STARTED SMOKING AT AGE 10 QUIT AT AGE 49 SMOKED 1/2 PPD ( [id number]). Past Drug Use History: None Reported - Past Family History Daughter(s) Family Medical History: Cancer Additional Family Medical History / Comment(s): Pt has 3 daughters. Two have the Braca gene and one has breast cancer and the other has had bilateral mastectomies. The third jared does not have the BRACA gene-she has had thyroid cancer. Mother Sister(s) Daughter(s) Family Medical History: Cancer Additional Family Medical History / Comment(s): BREAST CANCER at age 52. Father Family Medical History: No Reported History Additional Family Medical History / Comment(s): at age 91 yrs. Medications and Allergies Home Medications Medication Instructions Recorded Confirmed Type Acetaminophen-Codeine 300-30mg 1 tab PO Q8H PRN 01/27/17 01/27/17 History [Tylenol #3] Enalapril Maleate [Vasotec] 5 mg PO BID 01/27/17 01/27/17 History Famotidine [Pepcid] 20 mg PO BID 01/27/17 01/27/17 History Memantine [Namenda] 10 mg PO BID 01/27/17 01/27/17 History Pantoprazole [Protonix] 40 mg PO DAILY 01/27/17 01/27/17 History Pravastatin Sodium [Pravachol] 20 mg PO HS 01/27/17 01/27/17 History amLODIPine [Norvasc] 5 mg PO DAILY 01/27/17 01/27/17 History levETIRAcetam [Keppra] 500 mg PO BID 01/27/17 01/27/17 History Allergies Allergy/AdvReac Type Severity Reaction Status Date / Time hydrocodone AdvReac Nausea & Verified 01/27/17 14:37 Vomiting hydromorphone HCl AdvReac Nausea & Verified 01/27/17 14:37 [From Dilaudid] Vomiting Physical Exam Vitals: Vital Signs Temp Pulse Pulse Resp BP Pulse Ox 01/29/17 15:28 98.1 F 94 20 104/66 97 01/29/17 15:27 104 H 20 01/29/17 12:00 100.2 F H 104 H 20 99/70 98 01/29/17 11:56 100 18 106/55 97 01/29/17 11:34 104 H 18 116/53 97 01/29/17 11:24 105 H 18 114/55 97 01/29/17 08:00 99.9 F H 116 H 60 18 109/63 97 01/29/17 04:00 97.9 F 101 H 18 94/54 96 01/29/17 00:00 100 F H 105 H 18 99/52 98 01/28/17 20:00 100.4 F H 114 H 18 140/56 94 L Intake and Output 01/29/17 01/29/17 01/29/17 06:59 14:59 22:59 Intake Total 2750 350 Output Total 2200 400 1100 Balance Intake: IV 0 Intake, IV Titration 2750 350 Amount ACETAMINOPHEN IV (For NPO 100 ) 1,000 mg In Empty Bag 1 bag @ 400 mls/hr IVPB ONCE PRN Rx#:[id number] Dextrose 5%-0.45% NaCl 1, 0 000 ml @ 50 mls/hr IV . Q20H [facility] Rx#:[id number] Piperacillin-Tazobactam 3 50 .375 gm In Dextrose/Water 1 50ml.bag @ 12.5 mls/hr IVPB Q8HR [facility] Rx#: [id number] Potassium Chloride 10 meq 200 Lidocaine 2% Inj 10 mg In Sodium Chloride 0.9% 100 ml @ 100 mls/hr IV Q1HR [facility] Rx#:[id number] Sodium Chloride 0.9% 1, 1500 000 ml @ 150 mls/hr IV . Q6H40M [facility] Rx#:[id number] Sodium Chloride 0.9% 1, 50 000 ml As IV .STK-MED ONE Rx#:[id number] Vancomycin 1,000 mg In 1000 0 Sodium Chloride 0.9% 250 ml @ 125 mls/hr IVPB BID@ 0600,2000 [facility] Rx#: [id number] levETIRAcetam IV 500 mg 100 100 In Sodium Chloride 0.9% 100 ml @ 400 mls/hr IVPB Q12HR [facility] Rx#:[id number] Oral 0 Output: Urine 2200 400 1100 Other: Voiding Method Indwelling Catheter Indwelling Catheter Indwelling Catheter # Voids 0 # Bowel Movements 1 Weight 60 kg 60 kg Patient Weight 01/30/17 06:59 Weight 60 kg - Constitutional General appearance: no acute distress - EENT Eyes: PERRLA ENT: normal oropharynx - Neck Neck: no lymphadenopathy Thyroid: bilateral: normal size - Respiratory Respiratory: bilateral: CTA - Cardiovascular Rhythm: regular Heart sounds: normal: S1, S2 - Gastrointestinal General gastrointestinal: normal bowel sounds, soft - Integumentary Integumentary: normal - Neurologic Cranial nerves cannot be assessed. She is moving her upper extremities spontaneously. Flaccidity noted related to her lower extremities - Musculoskeletal Musculoskeletal: generalized weakness Results CBC & Chem 7: 01/29/17 06:03 01/29/17 06:03 Labs: Abnormal Lab Results - Last 24 Hours (Table) 01/29/17 01/29/17 01/29/17 Range/Units 06:03 06:03 08:11 WBC 2.2 L (3.8-10.6) k/uL RBC 3.27 L (3.80-5.40) m/uL Hgb 10.3 L (11.4-16.0) gm/dL Hct 29.7 L (34.0-46.0) % RDW 17.7 H (11.5-15.5) % Plt Count 44 L* (150-450) k/uL Lymphocytes # 0.5 L (1.0-4.8) k/uL Sodium 133 L (137-145) mmol/L Potassium 3.3 L (3.5-5.1) mmol/L Carbon Dioxide 20 L (22-30) mmol/L Glucose 67 L (74-99) mg/dL POC Glucose (mg/dL) 72 L (75-99) mg/dL Total Protein 5.0 L (6.3-8.2) g/dL Albumin 2.8 L (3.5-5.0) g/dL CSF Tot Nucleated Cells (0-5) u/L CSF Glucose (40-70) mg/dL CSF Total Protein (12-60) mg/dL 01/29/17 Range/Units 11:40 WBC (3.8-10.6) k/uL RBC (3.80-5.40) m/uL Hgb (11.4-16.0) gm/dL Hct (34.0-46.0) % RDW (11.5-15.5) % Plt Count (150-450) k/uL Lymphocytes # (1.0-4.8) k/uL Sodium (137-145) mmol/L Potassium (3.5-5.1) mmol/L Carbon Dioxide (22-30) mmol/L Glucose (74-99) mg/dL POC Glucose (mg/dL) (75-99) mg/dL Total Protein (6.3-8.2) g/dL Albumin (3.5-5.0) g/dL CSF Tot Nucleated Cells 7 H (0-5) u/L CSF Glucose 35 L (40-70) mg/dL CSF Total Protein 125 H (12-60) mg/dL Microbiology - Last 24 Hours (Table) 01/29/17 11:40 CSF Gram Stain - Preliminary Cerebral Spinal Fluid 01/28/17 10:41 Blood Culture - Preliminary Blood No Growth after 24 hours 01/28/17 10:40 Blood Culture - Preliminary Blood No Growth after 24 hours 01/28/17 11:25 Urine Culture - Final Urine,Catheterized 01/28/17 05:40 Blood Culture - Preliminary Blood No Growth after 24 hours Comments: Report of CT hip reviewed. Negative. Echocardiogram report reviewed. No evidence of any vegetations. Ejection fraction and wall motion normal Chest x-ray: report reviewed CT Scan - head: report reviewed Assessment and Plan (1) Fever Narrative/Plan: The source of her fever is not clear at this time. Initially it was felt that that she may have a UTI. Urine culture was negative. The patient is on aggressive broad-spectrum antibiotics but still continues to spike fever. Mental status is actually somewhat worsened. She therefore had a lumbar puncture done today. Fluid analysis did not show any significant increase in WBC. However protein levels were elevated. Cultures, including viral studies are pending, but the low WBC count, upfront, does make infection somewhat less likely. Continue antibiotics per ID The concern this case is tumor fever, including leptomeningeal metastasis. A cytology on the spinal fluid has been ordered. CT of the chest abdomen pelvis have also been ordered to check for recurrence elsewhere in the body. The above impression, and plan were discussed with her granddaughter who is at the bedside Status: Acute (2) Pancytopenia Narrative/Plan: The etiology of the pancytopenia is also not clear at this time. The patient has been off chemotherapy for about a year. Blood counts were low even before she started her current antibiotics. Therefore at this time it is felt that the neuropathy in counts is due to depressed marrow function from her SIRS type presentation, especially given exposure of bone marrow chemotherapy previously At this time counts are in a safe range. Continue to monitor with supplementation as needed Status: Acute (3) Breast cancer Narrative/Plan: The patient has triple negative, BRCA2 related breast cancer. She developed metastatic recurrence with a solitary lesion in the brain. Computed tomography scan side of the time showed no evidence of recurrence elsewhere. She was therefore treated aggressively with the surgery and then radiation. Her symptoms of weakness, lethargy and decreased appetite can be attributed to postradiation effect. However that should not be associated with fever. Persistence of fever despite aggressive antibiotic therapy is therefore concerning for tumor recurrence. Therefore as noted, restaging studies have been ordered Status: Acute
--- NOTE | 2017-01-29 19:36 | CT ---
EXAMINATION TYPE: CT ChestAbdPelvis w con DATE OF EXAM: 01/29/2017 INDICATION: History of breast cancer and brain cancer. Fever and weakness COMPARISON: CT abdomen pelvis 11/16/2015 CT DLP: 1931.00 mGycm CONTRAST: Performed without Oral Contrast and with IV Contrast, patient injected with 100 mL of Omnipaque 300. TECHNIQUE: Axial images at 5 mm thick sections. Reconstructed images in the coronal plane. Delayed images through the kidneys. FINDINGS: CT CHEST: Portion of the thyroid visualized is normal. No suspicious lung nodules or focal infiltrates are present. Some minimal compressive atelectasis is within the dependent portions of the lung bases bilaterally. Very minimal bilateral pleural effusions may be present. The ascending aorta diameter at the level of the main pulmonary artery is 3.2 cm. The main pulmonary artery diameter at the bifurcation is 3.[address] ABDOMEN: Liver: There is a 0.9 cm hypodensity within the left lobe liver of uncertain etiology. Cyst and metas tasis could be considered. This was present on the comparison of 11-16-15. Moderate fatty infiltration to the liver is present. Spleen: Normal Pancreas: Normal Adrenal glands: The adrenal glands are normal. Gallbladder: Normal Kidneys: No masses are evident. No hydronephrosis is present. There is a 0.9 cm cyst in the posteri or right kidney Delayed images were obtained through the kidneys, which remain unremarkable. Aorta: Vascular calcification is within the aorta. Inferior vena cava: Normal. CT PELVIS: Some limitation due to beam hardening artifact from right hip prosthesis. Loops of bowel within the abdomen and pelvis are normal. There are loops of bowel which are incom pletely distended or lack oral contrast limiting their evaluation. Sigmoid diverticulosis without acu te diverticulitis is present. Appendix: Normal as visualized. Urinary bladder: Decompressed the Calles catheter. Some air is present which may be related to instrum entation. Genitourinary structures: Ureters and ovaries are not identified. Osseous structures: No suspicious lytic or sclerotic lesions. There is some lucency within the left m edial iliac wing of uncertain significance. Facet degenerative changes and hypertrophy are present wi thin the lumbar spine. IMPRESSIONS: 1. No suspicious etiology to account for fever. 2. Diverticulosis without acute diverticulitis. 3. Calles catheter. 4. Right renal cyst. 5. Hepatic cyst.
[2017-01-29 20:42] LABS: Anion Gap 38 mmol/L; Blood Urea Nitrogen 17 mg/dL (7-17); Calcium 8.2 mg/dL (8.4-10.2); Carbon Dioxide 22 mmol/L (22-30); Chloride 106 mmol/L (98-107); Glucose 89 mg/dL (74-99); Magnesium 1.9 mg/dL (1.6-2.3); Non-African American GFR(MDRD) >60 (>60 ml/min/1.73 sqM); Potassium 3.9 mmol/L (3.5-5.1)
[2017-01-29 20:44] LABS: Sodium 166 mmol/L (137-145)
[2017-01-29] MEDS: PRAVASTATIN SODIUM 20 MG TAB PO SCH (22:12)
--- NOTE | 2017-01-29 22:40 | PN ---
DATE OF SERVICE: 01/29/2017 REASON FOR FOLLOWUP: Fever. INTERVAL HISTORY: The patient overall fever pattern has improved. Her temperature this afternoon was 100.2. The patient seems to be slightly more awake, alert. She denies any headache. No significant chest pain, shortness of breath or cough. No abdominal pain. On examination, blood pressure is 104/66 with a pulse of 94, temperature 98.1, down from 100.2. She is 97% on 2 L nasal cannula. General description is an elderly female lying in bed in no distress. RESPIRATORY SYSTEM: Unlabored breathing. Clear to auscultation anteriorly. HEART: S1, S2. Regular rate and rhythm. ABDOMEN: Soft. No tenderness. LABS: Hemoglobin 10.3, white count 2.2 with a BUN of 14, creatinine 0.60. The patient did have CSF examination which was clear, colorless, with a white count only 7. Glucose was slightly low at 35; however, the corresponding blood sugar was 72. Protein slightly elevated at 125. CSF Gram stain is so far negative. Blood cultures so far negative. DIAGNOSTIC IMPRESSION AND PLAN: Patient admitted to hospital with a fever in a patient who did have a recent resection of a metastatic lesion from her brain with a history of breast cancer. Patient did have mildly positive UA and also has a Mediport. So far culture remains negative. Fever responding to the Zosyn and vancomycin, which will be continued, watching her clinical course closely. Continue supportive care. MTDD
[2017-01-30] MEDS: levETIRAcetam IV 500 MG in SODIUM CHLORIDE 0.9% 100 ML IVPB SCH ×2 (00:50→07:59)
[2017-01-30] MEDS: PIPERACILLIN-TAZOBACTAM 3.375 GM in DEXTROSE/WATER 1 50ML.BAG IVPB SCH ×2 (00:57→07:58)
[2017-01-30] MEDS: ACETAMINOPHEN IV (For NPO) 1,000 MG in EMPTY BAG 1 BAG IVPB PRN (01:26)
[2017-01-30] MEDS: VANCOMYCIN 1,000 MG in SODIUM CHLORIDE 0.9% 250 ML IVPB SCH (06:03)
[2017-01-30 06:25] LABS: Anisocytosis Slight; Basophils % (A) 1 %; CH 32.1; CHCM 36.8; Eosinophils % (A) 1 %; HCT 23.1 % (34.0-46.0); HDW 3.56; Hyperchromasia Slight; Luc # (Auto) 0.04; Luc % (Auto) 3; Lymphocytes # (A) 0.3 k/uL (1.0-4.8); Lymphocytes % (A) 20 %; MCH 32.3 pg (25.0-35.0); MCHC 36.9 g/dL (31.0-37.0); MCV 87.5 fL (80.0-100.0); Mean Platelet Volume 7.5; Monocytes # (A) 0.1 k/uL (0-1.0); Monocytes % (A) 4 %; Neutrophils # (A) 1.2 k/uL (1.3-7.7); Neutrophils % (A) 72 %; Poikilocytosis Slight; RBC 2.63 m/uL (3.80-5.40); RDW 17.6 % (11.5-15.5); WBC (Perox) 1.81
[2017-01-30 06:28] LABS: WBC 1.7 k/uL (3.8-10.6)
[2017-01-30 06:29] LABS: HGB 8.5 gm/dL (11.4-16.0)
[2017-01-30 06:50] LABS: ALT 44 U/L (9-52); AST 20 U/L (14-36); Alkaline Phosphatase 53 U/L (38-126); Anion Gap 6 mmol/L; Blood Urea Nitrogen 12 mg/dL (7-17); Calcium 8.1 mg/dL (8.4-10.2); Carbon Dioxide 24 mmol/L (22-30); Chloride 104 mmol/L (98-107); Glucose 96 mg/dL (74-99); Non-African American GFR(MDRD) >60 (>60 ml/min/1.73 sqM); Sodium 134 mmol/L (137-145); Total Bilirubin 0.5 mg/dL (0.2-1.3); Total Protein 4.1 g/dL (6.3-8.2)
[2017-01-30 07:11] LABS: Manual Review Performed
[2017-01-30 07:13] LABS: Ovalocytes Present; Polychromasia Present; Potassium 2.6 mmol/L (3.5-5.1)
[2017-01-30 07:15] LABS: Spherocytes Present
[2017-01-30] MEDS: amLODIPine 5 MG TAB PO SCH (07:24)
[2017-01-30] MEDS: ASPIRIN 325 MG TAB PO SCH (07:24)
[2017-01-30 07:25] LABS: Cancer Anitgen 153 10.3 U/mL (<35.1)
[2017-01-30] MEDS: MEMANTINE 10 MG TAB PO SCH ×2 (07:25→20:23)
[2017-01-30] MEDS: LISINOPRIL 10 MG TAB PO SCH ×2 (07:25→20:23)
[2017-01-30] MEDS: POTASSIUM CHLORIDE 20 MEQ, LIDOCAINE 2% INJ 20 MG in SODIUM CHLORIDE 0.9% 100 ML IVPB SCH ×3 (08:01→12:46)
[2017-01-30] MEDS: PANTOPRAZOLE 40 MG/10 ML VIAL IVP SCH (08:02)
--- NOTE | 2017-01-30 10:45 | P.PN ---
Subjective 71-year-old female being seen and examined CellCept at bedside spouse states patient is more awake. Patient currently has eyes open on verbal spontaneous upper extremity movement noted current patient is nothing by mouth she did have a bedside swallow attempted on January 29 not able to be completed patient poorly responsive and not able to tolerate. Current temp is 99.7 temp maxed at 1 AM this morning 1-2.4 patient over the last several days has become increasingly more lethargic. This is a 71-year-old female, patient of Dr. Crowley. She has a known past medical history of breast cancer with bilateral mastectomy requiring chemotherapy, brain cancer with brain tumor removed about 6 weeks ago. Last radiation treatment was Wednesday of last week. Patient also has a history of hypertension, hyperlipidemia, GERD and was a former smoker. Patient has been living at home initially had been doing okay working with physical therapy. Over the last couple of weeks patient has declined physically. She was unable to stand. She was having falls. Started having decrease in appetite. Yesterday patient was becoming more lethargic. Family was concerned and brought her into the emergency room for further evaluation. She was found have a temp of 101.4 heart rate of 116. There was evidence of a UTI. She was initially started on Rocephin. Antibiotic were switched to Zosyn and Levaquin subsequently Levaquin was discontinued and she was started on IV vancomycin infectious disease consultation is following. Objective - Vital Signs Vital signs: Vital Signs Temp 99.7 F H 01/30/17 08:00 Pulse 90 01/30/17 08:00 Resp 19 01/30/17 08:00 BP 108/55 01/30/17 08:00 Pulse Ox 97 01/30/17 08:00 Intake & Output 01/29/17 01/30/17 01/30/17 18:59 06:59 18:59 Intake Total 350 1350 Output Total 1500 Balance -1150 1350 Weight 60 kg 65.5 kg Intake: IV 0 Intake, IV Titration 350 1350 Amount ACETAMINOPHEN IV (For NPO 100 ) 1,000 mg In Empty Bag 1 bag @ 400 mls/hr IVPB ONCE [facility]N Rx#:[id number] Dextrose 5%-0.45% NaCl 1, 0 600 000 ml @ 50 mls/hr IV . Q20H [facility] Rx#:[id number] Piperacillin-Tazobactam 3 50 .375 gm In Dextrose/Water 1 50ml.bag @ 12.5 mls/hr IVPB Q8HR [facility] Rx#: [id number] Potassium Chloride 10 meq 200 Lidocaine 2% Inj 10 mg In Sodium Chloride 0.9% 100 ml @ 100 mls/hr IV Q1HR [facility] Rx#:[id number] Sodium Chloride 0.9% 1, 50 000 ml As IV .[facility] Rx#:[id number] Vancomycin 1,000 mg In 0 500 Sodium Chloride 0.9% 250 ml @ 125 mls/hr IVPB BID@ 0600,2000 [facility] Rx#: [id number] levETIRAcetam IV 500 mg 100 100 In Sodium Chloride 0.9% 100 ml @ 400 mls/hr IVPB Q12HR [facility] Rx#:[id number] Oral 0 Output: Urine 1500 Other: Voiding Method Indwelling Catheter Indwelling Catheter Indwelling Catheter # Voids 0 # Bowel Movements 1 1 - Exam Physical exam 71-year-old female resting in bed spouse at bedside no spontaneous movements does not follow simple commands currently is nonverbal upper extremities random movement Lungs diminished at the bases few crackles otherwise no wheezing noted no shortness of breath Heart S1-S2 audible and regular monitor sinus Abdomen soft nontender indwelling Calles catheter in place Extremities med boots on to the bilateral lower extremities - Labs CBC & Chem 7: 01/30/17 05:37 01/30/17 05:37 Labs: Abnormal Lab Results - Last 24 Hours (Table) 01/29/17 01/29/17 01/29/17 Range/Units 11:40 11:40 19:56 WBC (3.8-10.6) k/uL RBC (3.80-5.40) m/uL Hgb (11.4-16.0) gm/dL Hct (34.0-46.0) % RDW (11.5-15.5) % Plt Count (150-450) k/uL Neutrophils # (1.3-7.7) k/uL Lymphocytes # (1.0-4.8) k/uL Sodium 166 H* (137-145) mmol/L Potassium (3.5-5.1) mmol/L Calcium 8.2 L (8.4-10.2) mg/dL Total Protein (6.3-8.2) g/dL Albumin (3.5-5.0) g/dL CSF Tot Nucleated Cells 7 H (0-5) u/L CSF Glucose 35 L (40-70) mg/dL CSF Total Protein 125 H (12-60) mg/dL HSV I DNA PCR DETECTED H (Not detected) 01/30/17 01/30/17 Range/Units 05:37 05:37 WBC 1.7 L* (3.8-10.6) k/uL RBC 2.63 L (3.80-5.40) m/uL Hgb 8.5 L D (11.4-16.0) gm/dL Hct 23.1 L (34.0-46.0) % RDW 17.6 H (11.5-15.5) % Plt Count 51 L (150-450) k/uL Neutrophils # 1.2 L (1.3-7.7) k/uL Lymphocytes # 0.3 L (1.0-4.8) k/uL Sodium 134 L (137-145) mmol/L Potassium 2.6 L* (3.5-5.1) mmol/L Calcium 8.1 L (8.4-10.2) mg/dL Total Protein 4.1 L (6.3-8.2) g/dL Albumin 2.2 L (3.5-5.0) g/dL CSF Tot Nucleated Cells (0-5) u/L CSF Glucose (40-70) mg/dL CSF Total Protein (12-60) mg/dL HSV I DNA PCR (Not detected) Microbiology - Last 24 Hours (Table) 01/29/17 11:40 CSF Gram Stain - Preliminary Cerebral Spinal Fluid CSF Culture - Preliminary 01/28/17 05:40 Blood Culture - Preliminary Blood No Growth after 48 hours 01/28/17 10:41 Blood Culture - Preliminary Blood No Growth after 24 hours 01/28/17 10:40 Blood Culture - Preliminary Blood No Growth after 24 hours 01/28/17 11:25 Urine Culture - Final Urine,Catheterized Assessment and Plan Plan: Impression plan 1. Altered mental status changes: Workup in progress. Possibly a metabolic encephalopathy related to UTI with sepsis. 2 CT scans of the brain completed with no acute changes. Neurology has been consulted. Case discussed with neurology this morning. Spinal tap by anesthesiology was ordered. Blood cultures and urine culture are negative. EEG was ordered to rule out seizure activity patient is maintained on Keppra 500 IV twice daily 2. UTI with sepsis: Antibiotics changed to Zosyn and Levaquin. Await urine culture. Infectious disease consulted 3. Sepsis with temperature high as 102 and tachycardia. Increase IV fluids to normal saline at 150 mL an hour. Lactic acid normal 4. Hyponatremia: Patient placed on normal saline. Repeat labs in a.m. 5. Essential hypertension: Blood pressure stable. Continue lisinopril and Norvasc 6. History of breast cancer status post chemotherapy and bilateral mastectomy 7. History of brain cancer with brain tumor removed about 6 weeks ago. Last radiation treatment on Wednesday last week 8. Elevated troponins evaluated by cardiology. They felt that this was not consistent with acute coronary syndrome EKG had shown sinus tachycardia with a right bundle branch block. They did order echo with Doppler 9. Thrombocytopenia and leukopenia: Oncology has been consulted 10. Patient is somnolent and is unable to take any oral medications she is kept nothing by mouth and is receiving IV medications Dr. Bishop will meet with the family discussed treatment options The above dictated assessment and findings were discussed with dr bishop Impression and the plan of care have been dictated as directed. Barbara Smith nurse practitioner acting as a scribe for dr bishop
[2017-01-30] MEDS: ACYCLOVIR SODIUM 650 MG in SODIUM CHLORIDE 0.9% 100 ML IV SCH ×3 (12:45→23:27)
--- NOTE | 2017-01-30 13:56 | P.PN ---
Progress Note - Text Patient seen and examined, with family at bedside Case discussed over the phone was Dr. Mack neurologist and Dr. 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 Condition is critical will follow closely in ICU
[2017-01-30 14:16] LABS: Glucose,Whole Blood 68 mg/dL (75-99)
[2017-01-30] MEDS ORDERED: DEXTROSE 50%-WATER 50 ML SYRINGE IVP STA (14:17)
[2017-01-30] MEDS ORDERED: ACETAMINOPHEN IV (For NPO) 1,000 MG in EMPTY BAG 1 BAG IVPB ONE (14:20)
[2017-01-30 14:34] LABS: Glucose,Whole Blood 139 mg/dL (75-99)
[2017-01-30] MEDS: DEXTROSE 5%-0.45% NACL 1,000 ML IV SCH (15:44)
[2017-01-30] MEDS: LACOSAMIDE IV 100 MG in SODIUM CHLORIDE 0.9% 50 ML IVPB SCH ×2 (16:00→20:29)
[2017-01-30 16:44] LABS: Anion Gap 6 mmol/L; Blood Urea Nitrogen 11 mg/dL (7-17); Calcium 7.6 mg/dL (8.4-10.2); Carbon Dioxide 22 mmol/L (22-30); Chloride 109 mmol/L (98-107); Glucose 105 mg/dL (74-99); Non-African American GFR(MDRD) >60 (>60 ml/min/1.73 sqM); Potassium 3.5 mmol/L (3.5-5.1); Sodium 137 mmol/L (137-145)
[2017-01-30] MEDS ORDERED: Potassium Replacement Protocol 1 EACH MISC MISCELLANE PRN (17:24)
[2017-01-30] MEDS ORDERED: POTASSIUM CHLORIDE 10 MEQ in WATER FOR INJECTION 1 100ML.BAG IVPB SCH (18:00)
--- NOTE | 2017-01-30 18:04 | P.PN ---
Subjective Principal diagnosis: Altered mental status This is a pleasant 71-year-old female continuing be evaluated by the neurology service for altered mental status. She was brought to the [facility] emergency room for progressive confusion for a couple weeks. She has a history of brain cancer with surgical resection about 6 weeks ago. She has received chemotherapy and radiation for this and for breast cancer. She has been having some worsening weakness. She has also been confused. She has been febrile during this admission has being treated for urinary tract infection. She had a computed tomography scan of the brain upon arrival and showed no acute intracranial abnormalities. It did show postsurgical changes in the left frontal region with generalized atrophy and small vessel ischemic changes. Her repeat CAT scan was unchanged . She did have a lumbar puncture done today with CSF studies that were positive for HSV. She is now being treated with IV acyclovir, and being followed by infectious disease. Cardiology has evaluated her due to some elevated troponin levels they do not think this is due to any significant cardiac etiology. She continues to be less responsive than normal and significantly weakened. She has been on postop Keppra since her tumor resection of the brain. She does not have a history of seizures. We ordered an EEG which did show recurrent seizure activity. We have added Vimpat to her Keppra. Recommendation was also made to discontinue Zosyn as this possibly can contribute to seizures. At the time of my exam she is been moved to the ICU unit. Her daughter is at bedside and says she is starting to become more alert and no seizure activity has been noticed. Objective - Vital Signs Vital signs: Vital Signs Temp 102.5 F H 01/30/17 14:15 Pulse 107 H 01/30/17 17:00 Resp 25 H 01/30/17 17:00 BP 96/53 01/30/17 17:00 Pulse Ox 97 01/30/17 17:00 Intake & Output 01/29/17 01/30/17 01/30/17 18:59 06:59 18:59 Intake Total 350 1350 1250 Output Total 1500 1090 Balance -1150 1350 160 Weight 60 kg 65.5 kg Intake: IV 0 Intake, IV Titration 350 1350 1250 Amount ACETAMINOPHEN IV (For NPO 100 ) 1,000 mg In Empty Bag 1 bag @ 400 mls/hr IVPB ONCE ONE Rx#:[id number] ACETAMINOPHEN IV (For NPO 100 ) 1,000 mg In Empty Bag 1 bag @ 400 mls/hr IVPB ONCE PRN Rx#:[id number] Acyclovir Sodium 650 mg 200 In Sodium Chloride 0.9% 100 ml @ 100 mls/hr IV Q8HR [facility] Rx#:[id number] Dextrose 5%-0.45% NaCl 1, 0 600 400 000 ml @ 50 mls/hr IV . Q20H [facility] Rx#:[id number] Lacosamide IV 100 mg In 50 Sodium Chloride 0.9% 50 ml @ 100 mls/hr IVPB BID [facility] Rx#:[id number] Piperacillin-Tazobactam 3 50 .375 gm In Dextrose/Water 1 50ml.bag @ 12.5 mls/hr IVPB Q8HR [facility] Rx#: [id number] Potassium Chloride 10 meq 200 Lidocaine 2% Inj 10 mg In Sodium Chloride 0.9% 100 ml @ 100 mls/hr IV Q1HR [facility] Rx#:[id number] Potassium Chloride 20 meq 400 Lidocaine 2% Inj 20 mg In Sodium Chloride 0.9% 100 ml @ 55.5 mls/hr IVPB Q2HR [facility] Rx#:[id number] Sodium Chloride 0.9% 1, 50 000 ml As IV .[facility] Rx#:[id number] Vancomycin 1,000 mg In 0 500 Sodium Chloride 0.9% 250 ml @ 125 mls/hr IVPB BID@ 0600,2000 [facility] Rx#: [id number] levETIRAcetam IV 500 mg 100 100 100 In Sodium Chloride 0.9% 100 ml @ 400 mls/hr IVPB Q12HR [facility] Rx#:[id number] Oral 0 0 Output: Urine 1500 1090 Other: Voiding Method Indwelling Catheter Indwelling Catheter Indwelling Catheter # Voids 0 # Bowel Movements 1 1 1 - Constitutional General appearance: Present: no acute distress - EENT Eyes: Present: PERRLA. Absent: abnormal pupil, ptosis - Neck Neck: Present: normal ROM. Absent: rigidity - Respiratory Respiratory: negative: prolonged expiration, prolonged inspiration - Cardiovascular Rhythm: regular - Gastrointestinal General gastrointestinal: Absent: distended, tenderness - Neurologic Neurologic Comment(s): The patient is drowsy and sleeping but fairly easily to wake. She will answer simple yes or no, but goes right back to sleep. There is no facial asymmetry. There is no lateralizing weakness observed. No tremors or seizure-like activities are seen. She does respond to light touch. She has intermittent response to simple commands. - Labs CBC & Chem 7: 01/30/17 05:37 01/30/17 16:16 Labs: Abnormal Lab Results - Last 24 Hours (Table) 01/29/17 01/29/17 01/30/17 Range/Units 11:40 19:56 05:37 WBC 1.7 L* (3.8-10.6) k/uL RBC 2.63 L (3.80-5.40) m/uL Hgb 8.5 L D (11.4-16.0) gm/dL Hct 23.1 L (34.0-46.0) % RDW 17.6 H (11.5-15.5) % Plt Count 51 L (150-450) k/uL Neutrophils # 1.2 L (1.3-7.7) k/uL Lymphocytes # 0.3 L (1.0-4.8) k/uL Sodium 166 H* (137-145) mmol/L Potassium (3.5-5.1) mmol/L Chloride (98-107) mmol/L Glucose (74-99) mg/dL POC Glucose (mg/dL) (75-99) mg/dL Calcium 8.2 L (8.4-10.2) mg/dL Total Protein (6.3-8.2) g/dL Albumin (3.5-5.0) g/dL HSV I DNA PCR DETECTED H (Not detected) 01/30/17 01/30/17 01/30/17 Range/Units 05:37 14:14 14:32 WBC (3.8-10.6) k/uL RBC (3.80-5.40) m/uL Hgb (11.4-16.0) gm/dL Hct (34.0-46.0) % RDW (11.5-15.5) % Plt Count (150-450) k/uL Neutrophils # (1.3-7.7) k/uL Lymphocytes # (1.0-4.8) k/uL Sodium 134 L (137-145) mmol/L Potassium 2.6 L* (3.5-5.1) mmol/L Chloride (98-107) mmol/L Glucose (74-99) mg/dL POC Glucose (mg/dL) 68 L 139 H (75-99) mg/dL Calcium 8.1 L (8.4-10.2) mg/dL Total Protein 4.1 L (6.3-8.2) g/dL Albumin 2.2 L (3.5-5.0) g/dL HSV I DNA PCR (Not detected) 01/30/17 Range/Units 16:16 WBC (3.8-10.6) k/uL RBC (3.80-5.40) m/uL Hgb (11.4-16.0) gm/dL Hct (34.0-46.0) % RDW (11.5-15.5) % Plt Count (150-450) k/uL Neutrophils # (1.3-7.7) k/uL Lymphocytes # (1.0-4.8) k/uL Sodium (137-145) mmol/L Potassium (3.5-5.1) mmol/L Chloride 109 H (98-107) mmol/L Glucose 105 H (74-99) mg/dL POC Glucose (mg/dL) (75-99) mg/dL Calcium 7.6 L (8.4-10.2) mg/dL Total Protein (6.3-8.2) g/dL Albumin (3.5-5.0) g/dL HSV I DNA PCR (Not detected) Microbiology - Last 24 Hours (Table) 01/28/17 10:41 Blood Culture - Preliminary Blood No Growth after 48 hours 01/28/17 10:40 Blood Culture - Preliminary Blood No Growth after 48 hours 01/29/17 11:40 CSF Gram Stain - Preliminary Cerebral Spinal Fluid CSF Culture - Preliminary 01/28/17 05:40 Blood Culture - Preliminary Blood No Growth after 48 hours Assessment and Plan (1) Altered mental status Status: Acute (2) Fever Status: Acute (3) Generalized weakness Status: Chronic (4) Brain tumor Status: Chronic (5) UTI (urinary tract infection) Status: Acute (6) Seizures Status: Acute (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 She has also been started on IV acyclovir for likely HSV meningitis. We are awaiting a complete CSF results. Infectious disease will continue to follow. Cardiology has seen the patient and have cleared her. Oncology will continue to follow. Continue to work with physical therapy. Continue Keppra and Vimpat at current dose. Continue seizure precautions neurological checks. We will continue to follow. I have performed a history and physical on the above patient. I have reviewed the above note, and agree.
[2017-01-30] MEDS: POTASSIUM CHLORIDE 10 MEQ, LIDOCAINE 2% INJ 10 MG in SODIUM CHLORIDE 0.9% 100 ML IVPB SCH ×2 (18:42→20:29)
[2017-01-30 18:49] LABS: Glucose,Whole Blood 106 mg/dL (75-99)
[2017-01-30] MEDS ORDERED: VANCOMYCIN TROUGH DUE 1 EACH MISC MISCELLANE ONE (19:00)
--- NOTE | 2017-01-30 19:21 | P.PN ---
Subjective Principal diagnosis: Altered mental status Pleasant 71-year-old female who presented to Hospital with increasing confusion and weakness over several days. 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 She had undergone prior chemotherapy but has just received her course of radiation therapy to her brain. Apparently she was having some increasing weakness. But then she had increasing confusion. She then developed a fever and there was concern a urinary tract infection. However with her altered mental status lumbar puncture was performed. With a positive HSV-1 PCR the infectious diseases follow-up was requested. The patient is arousable. She opens her eyes. She open her mouth slowly after being requested. His difficulty following other commands. The nurse had noted when she was trying to speak that she was having rapid movements of her lower jaw. Concerns to ongoing seizures. She does seem to be comfortable. Objective - Vital Signs Vital signs: Vital Signs Temp 102.5 F H 01/30/17 14:15 Pulse 95 01/30/17 19:00 Resp 26 H 01/30/17 19:00 BP 89/44 01/30/17 19:00 Pulse Ox 99 01/30/17 19:00 Intake & Output 01/30/17 01/30/17 01/31/17 06:59 18:59 06:59 Intake Total 1350 1350 100 Output Total 1150 50 Balance 1350 200 50 Weight 65.5 kg Intake: Intake, IV Titration 1350 1350 100 Amount ACETAMINOPHEN IV (For NPO 100 ) 1,000 mg In Empty Bag 1 bag @ 400 mls/hr IVPB ONCE ONE Rx#:[id number] ACETAMINOPHEN IV (For NPO 100 ) 1,000 mg In Empty Bag 1 bag @ 400 mls/hr IVPB ONCE PRN Rx#:[id number] Acyclovir Sodium 650 mg 200 In Sodium Chloride 0.9% 100 ml @ 100 mls/hr IV Q8HR [facility] Rx#:[id number] Dextrose 5%-0.45% NaCl 1, 600 400 000 ml @ 50 mls/hr IV . Q20H [facility] Rx#:[id number] Lacosamide IV 100 mg In 50 Sodium Chloride 0.9% 50 ml @ 100 mls/hr IVPB BID [facility] Rx#:[id number] Piperacillin-Tazobactam 3 50 .375 gm In Dextrose/Water 1 50ml.bag @ 12.5 mls/hr IVPB Q8HR [facility] Rx#: [id number] Potassium Chloride 10 meq 100 100 Lidocaine 2% Inj 10 mg In Sodium Chloride 0.9% 100 ml @ 100 mls/hr IVPB Q1HR [facility] Rx#:[id number] Potassium Chloride 20 meq 400 Lidocaine 2% Inj 20 mg In Sodium Chloride 0.9% 100 ml @ 55.5 mls/hr IVPB Q2HR [facility] Rx#:[id number] Vancomycin 1,000 mg In 500 Sodium Chloride 0.9% 250 ml @ 125 mls/hr IVPB BID@ 0600,2000 [facility] Rx#: [id number] levETIRAcetam IV 500 mg 100 100 In Sodium Chloride 0.9% 100 ml @ 400 mls/hr IVPB Q12HR [facility] Rx#:[id number] Oral 0 Output: Urine 1150 50 Other: Voiding Method Indwelling Catheter Indwelling Catheter # Bowel Movements 1 1 - Exam 71-year-old woman comfortable at this time. Less agitated. HEENT: Anicteric conjunctiva are pink and moist nasal mucosa grossly intact without significant lesions, oral cavity is dry. Neck: The neck is supple without significant lymphadenopathy or thyromegaly. Lungs: Good bilateral air entry without significant crackles or wheezing. There is no significant bronchial sounds. There is no egophony or dullness. Heart: Irregular rhythm with an audible S1-S2, no S3 no S4. There is no significant murmur click or rub, PMI was nondisplaced. Abdomen: Positive bowel sounds soft and nontender without palpable masses or organomegaly. There was no guarding or rebound. Extremities: The upper extremities have excellent pulses they are symmetric, no significant petechiae or telangiectasia. No splinter hemorrhages were noted. Lower extremities have just trace edema and 2+ pulses. Neuro: Is noted she is arousable. Not as agitated as noted from before. She did not have any seizure-like activity during this particular exam. Per nursing noted just earlier when she attempted to speak she was having rapid movements of her lower jaw. As noted followed to simple commands when of eye- opening when of opening her mouth which took some time. - Labs CBC & Chem 7: 01/30/17 05:37 01/30/17 16:16 Labs: Abnormal Lab Results - Last 24 Hours (Table) 01/29/17 01/29/1701/30/17 Range/Units 11:40 19:56 05:37 WBC 1.7 L* (3.8-10.6) k/uL RBC 2.63 L (3.80-5.40) m/uL Hgb 8.5 L D (11.4-16.0) gm/dL Hct 23.1 L (34.0-46.0) % RDW 17.6 H (11.5-15.5) % Plt Count 51 L (150-450) k/uL Neutrophils # 1.2 L (1.3-7.7) k/uL Lymphocytes # 0.3 L (1.0-4.8) k/uL Sodium 166 H* (137-145) mmol/L Potassium (3.5-5.1) mmol/L Chloride (98-107) mmol/L Glucose (74-99) mg/dL POC Glucose (mg/dL) (75-99) mg/dL Calcium 8.2 L (8.4-10.2) mg/dL Total Protein (6.3-8.2) g/dL Albumin (3.5-5.0) g/dL HSV I DNA PCR DETECTED H (Not detected) 01/30/17 01/30/17 01/30/17 Range/Units 05:37 14:14 14:32 WBC (3.8-10.6) k/uL RBC (3.80-5.40) m/uL Hgb (11.4-16.0) gm/dL Hct (34.0-46.0) % RDW (11.5-15.5) % Plt Count (150-450) k/uL Neutrophils # (1.3-7.7) k/uL Lymphocytes # (1.0-4.8) k/uL Sodium 134 L (137-145) mmol/L Potassium 2.6 L* (3.5-5.1) mmol/L Chloride (98-107) mmol/L Glucose (74-99) mg/dL POC Glucose (mg/dL) 68 L 139 H (75-99) mg/dL Calcium 8.1 L (8.4-10.2) mg/dL Total Protein 4.1 L (6.3-8.2) g/dL Albumin 2.2 L (3.5-5.0) g/dL HSV I DNA PCR (Not detected) 01/30/17 01/30/17 Range/Units 16:16 18:46 WBC (3.8-10.6) k/uL RBC (3.80-5.40) m/uL Hgb (11.4-16.0) gm/dL Hct (34.0-46.0) % RDW (11.5-15.5) % Plt Count (150-450) k/uL Neutrophils # (1.3-7.7) k/uL Lymphocytes # (1.0-4.8) k/uL Sodium (137-145) mmol/L Potassium (3.5-5.1) mmol/L Chloride 109 H (98-107) mmol/L Glucose 105 H (74-99) mg/dL POC Glucose (mg/dL) 106 H (75-99) mg/dL Calcium 7.6 L (8.4-10.2) mg/dL Total Protein (6.3-8.2) g/dL Albumin (3.5-5.0) g/dL HSV I DNA PCR (Not detected) Microbiology - Last 24 Hours (Table) 01/28/17 10:41 Blood Culture - Preliminary Blood No Growth after 48 hours 01/28/17 10:40 Blood Culture - Preliminary Blood No Growth after 48 hours 01/29/17 11:40 CSF Gram Stain - Preliminary Cerebral Spinal Fluid CSF Culture - Preliminary 01/28/17 05:40 Blood Culture - Preliminary Blood No Growth after 48 hours Laboratory Results WBC 1.7 k/uL (3.8-10.6) L* 01/30/17 05:37 RBC 2.63 m/uL (3.80-5.40) L 01/30/17 05:37 Hgb 8.5 gm/dL (11.4-16.0) L D 01/30/17 05:37 Hct 23.1 % (34.0-46.0) L 01/30/17 05:37 MCV 87.5 fL (80.0-100.0) 01/30/17 05:37 MCH 32.3 pg (25.0-35.0) 01/30/17 05:37 MCHC 36.9 g/dL (31.0-37.0) 01/30/17 05:37 RDW 17.6 % (11.5-15.5) H 01/30/17 05:37 Plt Count 51 k/uL (150-450) L 01/30/17 05:37 Neutrophils % 72 % 01/30/17 05:37 Neutrophils % (Manual) 66.0 % 01/27/17 13:45 Lymphocytes % 20 % 01/30/17 05:37 Lymphocytes % (Manual) 25.0 % 01/27/17 13:45 Monocytes % 4 % 01/30/17 05:37 Monocytes % (Manual) 8.0 % 01/27/17 13:45 Eosinophils % 1 % 01/30/17 05:37 Eosinophils % (Manual) 1.0 % 01/27/17 13:45 Basophils % 1 % 01/30/17 05:37 Neutrophils # 1.2 k/uL (1.3-7.7) L 01/30/17 05:37 Neutrophils # (Manual) 2.0 k/uL (1.3-7.7) 01/27/17 13:45 Lymphocytes # 0.3 k/uL (1.0-4.8) L 01/30/17 05:37 Lymphocytes # (Manual) 0.8 k/uL (1.0-4.8) L 01/27/17 13:45 Monocytes # 0.1 k/uL (0-1.0) 01/30/17 05:37 Monocytes # (Manual) 0.2 k/uL (0-1.0) 01/27/17 13:45 Eosinophils # 0.0 k/uL (0-0.7) 01/30/17 05:37 Eosinophils # (Manual) 0.0 k/uL (0-0.7) 01/27/17 13:45 Basophils # 0.0 k/uL (0-0.2) 01/30/17 05:37 Nucleated RBCs 7 /100 WBC (0-0) H 01/27/17 13:45 Manual Slide Review Performed 01/30/17 05:37 Polychromasia Present 01/30/17 05:37 Hyperchromasia Slight 01/30/17 05:37 Poikilocytosis Slight 01/30/17 05:37 Anisocytosis Slight 01/30/17 05:37 Spherocytes Present 01/30/17 05:37 Ovalocytes Present 01/30/17 05:37 Fragmented RBCs Present 01/30/17 05:37 PT 9.7 sec (9.0-12.0) 01/27/17 13:45 INR 0.9 (<1.1) 01/27/17 13:45 APTT 18.3 sec (22.0-30.0) L 01/27/17 13:45 Fibrinogen 383 mg/dL (200-500) 01/29/17 16:49 Sodium 137 mmol/L (137-145) 01/30/17 16:16 Potassium 3.5 mmol/L (3.5-5.1) 01/30/17 16:16 Chloride 109 mmol/L (98-107) H 01/30/17 16:16 Carbon Dioxide 22 mmol/L (22-30) 01/30/17 16:16 Anion Gap 6 mmol/L 01/30/17 16:16 BUN 11 mg/dL (7-17) 01/30/17 16:16 Creatinine 0.60 mg/dL (0.52-1.04) 01/30/17 16:16 Est GFR (MDRD) Af Amer >60 (>60 ml/min/1.73 sqM) 01/30/17 16:16 Est GFR (MDRD) Non-Af >60 (>60 ml/min/1.73 sqM) 01/30/17 16:16 Glucose 105 mg/dL (74-99) H 01/30/17 16:16 POC Glucose (mg/dL) 106 mg/dL (75-99) H 01/30/17 18:46 POC Glu Thread Laster Gi Tapia 01/30/17 18:46 Plasma Lactic Acid Mookie 0.9 mmol/L (0.7-2.0) 01/28/17 05:40 Calcium 7.6 mg/dL (8.4-10.2) L 01/30/17 16:16 Magnesium 1.9 mg/dL (1.6-2.3) 01/29/17 19:56 Total Bilirubin 0.5 mg/dL (0.2-1.3) 01/30/17 05:37 AST 20 U/L (14-36) 01/30/17 05:37 ALT 44 U/L (9-52) 01/30/17 05:37 Alkaline Phosphatase 53 U/L (38-126) 01/30/17 05:37 Ammonia <9 umol/L (<30) 01/27/17 14:48 Total Creatine Kinase 85 U/L (30-135) 01/28/17 01:55 CK-MB (CK-2) 1.2 ng/mL (0.0-2.4) 01/28/17 01:55 CK-MB (CK-2) Rel Index 1.4 01/28/17 01:55 Troponin I 0.103 ng/mL (0.000-0.034) H* 01/28/17 01:55 Total Protein 4.1 g/dL (6.3-8.2) L 01/30/17 05:37 Albumin 2.2 g/dL (3.5-5.0) L 01/30/17 05:37 Triglycerides 246 mg/dL (<150) H 01/28/17 05:40 Cholesterol 218 mg/dL (<200) H 01/28/17 05:40 LDL Cholesterol, Calc 115 mg/dL (0-99) H 01/28/17 05:40 HDL Cholesterol 54 mg/dL (40-60) 01/28/17 05:40 CA 15-3 Antigen 10.3 U/mL (<35.1) 01/30/17 05:37 Urine Color Yellow 01/27/17 14:50 Urine Appearance Cloudy (Clear) H 01/27/17 14:50 Urine pH 6.5 (5.0-8.0) 01/27/17 14:50 Ur Specific [place] 1.013 (1.001-1.035) 01/27/17 14:50 Urine Protein Trace (Negative) H 01/27/17 14:50 Urine Glucose (UA) Negative (Negative) 01/27/17 14:50 Urine Ketones Negative (Negative) 01/27/17 14:50 Urine Blood Small (Negative) H 01/27/17 14:50 Urine Nitrite Negative (Negative) 01/27/17 14:50 Urine Bilirubin Negative (Negative) 01/27/17 14:50 Urine Urobilinogen 2.0 mg/dL (<2.0) 01/27/17 14:50 Ur Leukocyte Esterase Moderate (Negative) H 01/27/17 14:50 Urine RBC 8 /hpf (0-5) H 01/27/17 14:50 Urine WBC 42 /hpf (0-5) H 01/27/17 14:50 Urine WBC Clumps Occasional /hpf (None) H 01/27/17 14:50 Ur Squamous Epith Cells 5 /hpf (0-4) H 01/27/17 14:50 Amorphous Sediment Rare /hpf (None) H 01/27/17 14:50 Urine Bacteria Many /hpf (None) H 01/27/17 14:50 Urine Mucus Occasional /hpf (None) H 01/27/17 14:50 CSF Tube Number 4 01/29/17 11:40 CSF Volume 2.0 01/29/17 11:40 CSF Appearance Clear 01/29/17 11:40 CSF Color Colorless 01/29/17 11:40 CSF RBC 0 u/L (0-10) 01/29/17 11:40 CSF Tot Nucleated Cells 7 u/L (0-5) H 01/29/17 11:40 CSF Glucose 35 mg/dL (40-70) L 01/29/17 11:40 CSF Total Protein 125 mg/dL (12-60) H 01/29/17 11:40 Vancomycin Trough 16.9 ug/mL 01/30/17 16:30 Urine Opiates Screen Detected (NotDetected) H 01/27/17 14:50 Ur Oxycodone Screen Not Detected (NotDetected) 01/27/17 14:50 Urine Methadone Screen Not Detected (NotDetected) 01/27/17 14:50 Ur Propoxyphene Screen Not Detected (NotDetected) 01/27/17 14:50 Ur Barbiturates Screen Not Detected (NotDetected) 01/27/17 14:50 U Tricyclic Antidepress Not Detected (NotDetected) 01/27/17 14:50 Ur Phencyclidine Scrn Not Detected (NotDetected) 01/27/17 14:50 Ur Amphetamines Screen Not Detected (NotDetected) 01/27/17 14:50 U Methamphetamines Scrn Not Detected (NotDetected) 01/27/17 14:50 U Benzodiazepines Scrn Not Detected (NotDetected) 01/27/17 14:50 Urine Cocaine Screen Not Detected (NotDetected) 01/27/17 14:50 U Marijuana (THC) Screen Not Detected (NotDetected) 01/27/17 14:50 HSV I DNA PCR DETECTED (Not detected) H 01/29/17 11:40 HSV II DNA PCR Not detected (Not detected) 01/29/17 11:40 HSV (PCR) Source (()) 01/29/17 11:40 Microbiology 01/28/17 10:41 Blood Blood Culture - Preliminary No Growth after 48 hours 01/28/17 10:40 Blood Blood Culture - Preliminary No Growth after 48 hours 01/29/17 11:40 Cerebral Spinal Fluid CSF Gram Stain - Preliminary 01/29/17 11:40 Cerebral Spinal Fluid CSF Culture - Preliminary 01/28/17 05:40 Blood Blood Culture - Preliminary No Growth after 48 hours 01/28/17 11:25 Urine,Catheterized Urine Culture - Final Assessment and Plan (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 She was doing relatively well but then had the onset of altered mental status. Because she had a fever there was concern for underlying infection as well as the evidence of worsening pancytopenia thought to be due to underlying infection. Lumbar puncture was performed. There is no evidence of any significant bacterial infection of the central nervous system. However the PCR for HSV 1 and is coming back as positive. She is immunosuppressed and a common event with herpetic encephalitis in this situation. Intravenous acyclovir 10 mg/kg is being given. Other have an expiratory being discontinued given her significant pancytopenia. Hematology is following. EEG was abnormal she was having some further seizures and then pat is been added to her Keppra. Over this will improve her current mental status also. Her family understands that her prognosis is quite poor Status: Acute (2) Leukopenia Status: Acute (3) Pancytopenia Status: Acute
[2017-01-30] MEDS ORDERED: NOREPINEPHRIN 4 MG-0.9% NS PMX 4 MG/250 ML ML IV SCH (20:00)
[2017-01-30] MEDS: PRAVASTATIN SODIUM 20 MG TAB PO SCH (20:23)
[2017-01-30] MEDS: SODIUM CHLORIDE 0.9% 1,000 ML IV SCH ×2 (20:29→23:27)
[2017-01-30] MEDS: levETIRAcetam IV 1,000 MG in SALINE 1 100ML.BAG IVPB SCH (20:29)
[2017-01-30] MEDS ORDERED: levETIRAcetam IV 1,000 MG in SODIUM CHLORIDE 0.9% 100 ML IVPB SCH (21:00)
[2017-01-31 00:18] LABS: Glucose,Whole Blood 81 mg/dL (75-99)
[2017-01-31] MEDS: LORazepam 2 MG/ML SYRINGE IV PRN ×2 (00:29→14:01)
[2017-01-31] MEDS: ACETAMINOPHEN IV (For NPO) 1,000 MG in EMPTY BAG 1 BAG IVPB PRN ×2 (04:22→20:09)
[2017-01-31 05:04] LABS: ALT 48 U/L (9-52); AST 26 U/L (14-36); Alkaline Phosphatase 48 U/L (38-126); Anion Gap 2 mmol/L; Blood Urea Nitrogen 7 mg/dL (7-17); Calcium 7.6 mg/dL (8.4-10.2); Carbon Dioxide 22 mmol/L (22-30); Chloride 112 mmol/L (98-107); Glucose 96 mg/dL (74-99); Magnesium 1.6 mg/dL (1.6-2.3); Non-African American GFR(MDRD) >60 (>60 ml/min/1.73 sqM); Phosphorous 2.1 mg/dL (2.5-4.5); Potassium 3.5 mmol/L (3.5-5.1); Sodium 136 mmol/L (137-145); Total Bilirubin 0.4 mg/dL (0.2-1.3); Total Protein 3.8 g/dL (6.3-8.2)
[2017-01-31 05:15] LABS: Anisocytosis Slight; Basophils % (A) 0 %; CH 32.3; CHCM 36.5; Eosinophils % (A) 1 %; HCT 23.2 % (34.0-46.0); HDW 3.51; HGB 8.1 gm/dL (11.4-16.0); Hyperchromasia Slight; Luc # (Auto) 0.06; Luc % (Auto) 3; Lymphocytes # (A) 0.3 k/uL (1.0-4.8); Lymphocytes % (A) 17 %; MCHC 34.9 g/dL (31.0-37.0); MCV 88.9 fL (80.0-100.0); Mean Platelet Volume 7.2; Monocytes # (A) 0.1 k/uL (0-1.0); Monocytes % (A) 3 %; Neutrophils # (A) 1.4 k/uL (1.3-7.7); Neutrophils % (A) 76 %; Poikilocytosis Slight; RBC 2.61 m/uL (3.80-5.40); RDW 18.1 % (11.5-15.5); WBC (Perox) 1.86
[2017-01-31 05:16] LABS: WBC 1.8 k/uL (3.8-10.6)
[2017-01-31] MEDS ORDERED: Potassium Replacement Protocol 1 EACH MISC MISCELLANE PRN (05:41)
[2017-01-31] MEDS ORDERED: Magnesium Replacement Protocol 1 EACH MISC MISCELLANE PRN (05:41)
[2017-01-31] MEDS: MAGNESIUM SULFATE-D5W PMX 1 GM in DEXTROSE/WATER 1 100ML.BAG IVPB SCH ×2 (06:15→08:29)
[2017-01-31] MEDS: POTASSIUM CHLORIDE 10 MEQ, LIDOCAINE 2% INJ 10 MG in SODIUM CHLORIDE 0.9% 100 ML IV SCH ×2 (06:15→08:29)
[2017-01-31] MEDS: DEXTROSE 5%-0.45% NACL 1,000 ML IV SCH ×2 (06:45→16:23)
--- NOTE | 2017-01-31 07:20 | XR ---
EXAMINATION TYPE: XR chest 1V DATE OF EXAM: 01/31/2017 COMPARISON: 01/27/2017 HISTORY: Shortness of breath TECHNIQUE: Single frontal view of the chest is obtained. FINDINGS: There are now subsegmental changes at the left lung base. Patchy right upper lobe area of consolidation also seen. Heart size stable. Hypertrophic and degenerative change of the spine. Tiny l eft pleural effusion now suspected. IMPRESSION: 1. Analysis left lower lobe infiltrate and tiny effusion. 2. Patchy right upper lobe infiltrate.
[2017-01-31] MEDS: ASPIRIN 325 MG TAB PO SCH (08:52)
[2017-01-31] MEDS: amLODIPine 5 MG TAB PO SCH (08:52)
[2017-01-31] MEDS: LISINOPRIL 10 MG TAB PO SCH ×2 (08:53→20:14)
[2017-01-31] MEDS: MEMANTINE 10 MG TAB PO SCH ×2 (08:53→20:14)
[2017-01-31] MEDS: levETIRAcetam IV 1,000 MG in SALINE 1 100ML.BAG IVPB SCH ×2 (09:20→20:13)
[2017-01-31] MEDS: ACYCLOVIR SODIUM 650 MG in SODIUM CHLORIDE 0.9% 100 ML IV SCH ×3 (09:20→23:25)
[2017-01-31] MEDS: PANTOPRAZOLE 40 MG/10 ML VIAL IVP SCH (09:20)
--- NOTE | 2017-01-31 09:33 | EEG ---
DATE OF SERVICE: 01/30/2017 INDICATIONS FOR EXAMINATION: AGE: 71Y REASON FOR TESTING: Altered mental status and tremors. DESCRIPTION OF PROCEDURE: This EEG was performed using a 21-channel digital electroencephalograph, following international 10 to 20 system. DESCRIPTION OF RECORDING: From the beginning of the tracing, and with the patient's eyes closed, the background rhythm was mostly consisting of 8 Hz alpha frequency in the posterior occipital leads. Frequent epileptiform discharges are seen, that are somewhat generalized, and only lasting 3 to 5 seconds. Occasional movement and lead artifacts are seen. Photic stimulation was performed with no driving response seen. More epileptiform discharges are seen during photic stimulation. Hyperventilation was not performed. The patient remains awake throughout the tracing. INTERPRETATION: This awake EEG is abnormal due to the presence of generalized epileptiform discharges that are recurring throughout the tracing. Clinical correlation is recommended.
[2017-01-31] MEDS: LACOSAMIDE IV 100 MG in SODIUM CHLORIDE 0.9% 50 ML IVPB SCH ×2 (10:33→22:09)
--- NOTE | 2017-01-31 10:52 | P.PN ---
Subjective This is a 71-year-old female, patient of Dr. Crowley. She has a known past medical history of breast cancer with bilateral mastectomy requiring chemotherapy, brain cancer with brain tumor removed about 6 weeks ago. Last radiation treatment was Wednesday of last week. Patient also has a history of hypertension, hyperlipidemia, GERD and was a former smoker. Patient has been living at home initially had been doing okay working with physical therapy. Over the last couple of weeks patient has declined physically. She was unable to stand. She was having falls. Started having decrease in appetite. Yesterday patient was becoming more lethargic. Family was concerned and brought her into the emergency room for further evaluation. She was found have a temp of 101.4 heart rate of 116. There was evidence of a UTI. She was initially started on Rocephin. Antibiotic were switched to Zosyn and Levaquin subsequently Levaquin was discontinued and she was started on IV vancomycin infectious disease consultation is following. Patient was evaluated by neurology lumbar puncture was ordered and results are still pending EEG is pending Objective - Vital Signs Vital signs: Vital Signs Temp 98.5 F 01/31/17 08:00 Pulse 85 01/31/17 09:00 Resp 22 01/31/17 09:00 BP 114/61 01/31/17 09:00 Pulse Ox 100 01/31/17 09:00 Intake & Output 01/30/17 01/31/17 01/31/17 18:59 06:59 18:59 Intake Total 1350 1649 450 Output Total 1150 815 175 Balance 200 834 275 Weight 64.2 kg Intake: IV 1549 450 Dextrose 5%-0.45% NaCl 1, 550 50 000 ml @ 50 mls/hr IV . Q20H [facility] Rx#:[id number] Magnesium Sulfate-D5w Pmx 200 1 gm In Dextrose/Water 1 100ml.bag @ 100 mls/hr IVPB Q1H [facility] Rx#: [id number] Potassium Chloride 20 meq 200 Lidocaine 2% Inj 20 mg In Sodium Chloride 0.9% 100 ml @ 55.5 mls/hr IVPB Q2HR [facility] Rx#:[id number] Sodium Chloride 0.9% 1, 999 000 ml @ 999 mls/hr IV . Q1H1M [facility] Rx#:[id number] Intake, IV Titration 1350 100 Amount ACETAMINOPHEN IV (For NPO 100 ) 1,000 mg In Empty Bag 1 bag @ 400 mls/hr IVPB ONCE ONE Rx#:[id number] Acyclovir Sodium 650 mg 200 In Sodium Chloride 0.9% 100 ml @ 100 mls/hr IV Q8HR [facility] Rx#:[id number] Dextrose 5%-0.45% NaCl 1, 400 000 ml @ 50 mls/hr IV . Q20H [facility] Rx#:[id number] Lacosamide IV 100 mg In 50 Sodium Chloride 0.9% 50 ml @ 100 mls/hr IVPB BID [facility] Rx#:[id number] Potassium Chloride 10 meq 100 100 Lidocaine 2% Inj 10 mg In Sodium Chloride 0.9% 100 ml @ 100 mls/hr IVPB Q1HR [facility] Rx#:[id number] Potassium Chloride 20 meq 400 Lidocaine 2% Inj 20 mg In Sodium Chloride 0.9% 100 ml @ 55.5 mls/hr IVPB Q2HR [facility] Rx#:[id number] levETIRAcetam IV 500 mg 100 In Sodium Chloride 0.9% 100 ml @ 400 mls/hr IVPB Q12HR [facility] Rx#:[id number] Oral 0 0 Output: Urine 1150 815 175 Other: Voiding Method Indwelling Catheter Indwelling Catheter Indwelling Catheter # Bowel Movements 1 - Exam Patient is somnolent able to wake up with stimuli, now NG tube in, Oxygen via nasal canula in HEENT with scar of recent surgery otherwise no abnormality seen Neck is supple no JVD no goiter no lymphadenopathy Chest exam reveals a few scattered crackles no wheezing Cardiac exam reveals regular heart sounds S1 and S2 no gallops no murmurs Abdomen is soft nontender no organomegaly Extremity exam reveals no edema no cyanosis or clubbing Neurological examination reveals no clear gross focal deficit patient is somnolent but has no focal neurological deficit, she is not compliant with exam , she is moving all 4 extremities - Labs CBC & Chem 7: 01/31/17 04:31 01/31/17 04:31 Labs: Abnormal Lab Results - Last 24 Hours (Table) 01/30/17 01/30/17 01/30/17 Range/Units 14:14 14:32 16:16 WBC (3.8-10.6) k/uL RBC (3.80-5.40) m/uL Hgb (11.4-16.0) gm/dL Hct (34.0-46.0) % RDW (11.5-15.5) % Plt Count (150-450) k/uL Lymphocytes # (1.0-4.8) k/uL Sodium (137-145) mmol/L Chloride 109 H (98-107) mmol/L Creatinine (0.52-1.04) mg/dL Glucose 105 H (74-99) mg/dL POC Glucose (mg/dL) 68 L 139 H (75-99) mg/dL Calcium 7.6 L (8.4-10.2) mg/dL Phosphorus (2.5-4.5) mg/dL Total Protein (6.3-8.2) g/dL Albumin (3.5-5.0) g/dL 01/30/17 01/31/17 01/31/17 Range/Units 18:46 04:31 04:31 WBC 1.8 L* (3.8-10.6) k/uL RBC 2.61 L (3.80-5.40) m/uL Hgb 8.1 L (11.4-16.0) gm/dL Hct 23.2 L (34.0-46.0) % RDW 18.1 H (11.5-15.5) % Plt Count 51 L (150-450) k/uL Lymphocytes # 0.3 L (1.0-4.8) k/uL Sodium 136 L (137-145) mmol/L Chloride 112 H (98-107) mmol/L Creatinine 0.50 L (0.52-1.04) mg/dL Glucose (74-99) mg/dL POC Glucose (mg/dL) 106 H (75-99) mg/dL Calcium 7.6 L (8.4-10.2) mg/dL Phosphorus 2.1 L (2.5-4.5) mg/dL Total Protein 3.8 L (6.3-8.2) g/dL Albumin 2.0 L (3.5-5.0) g/dL Microbiology - Last 24 Hours (Table) 01/28/17 05:40 Blood Culture - Preliminary Blood No Growth after 72 hours 01/28/17 10:41 Blood Culture - Preliminary Blood No Growth after 48 hours 01/28/17 10:40 Blood Culture - Preliminary Blood No Growth after 48 hours 01/29/17 11:40 CSF Gram Stain - Preliminary Cerebral Spinal Fluid CSF Culture - Preliminary Assessment and Plan Plan: 1. Altered mental status changes: Workup in progress. Has evidence of Herpes encephalitis 2 CT scans of the brain completed with no acute changes. Neurology following. Blood cultures and urine culture are negative. EEG was done, patient now on Keppra 1000 mg bid and Vimpat. 2. UTI on admission resolved urine culture now negative 3. Sepsis with temperature high as 102 and tachycardia. Increase IV fluids to normal saline at 150 mL an hour. Lactic acid normal 4. Hyponatremia: Patient placed on normal saline. Repeat labs in a.m. 5. Essential hypertension: Blood pressure stable. Continue lisinopril and Norvasc 6. History of breast cancer status post chemotherapy and bilateral mastectomy 7. History of brain cancer with brain tumor removed about 6 weeks ago. Last radiation treatment on Wednesday last week 8. Elevated troponins evaluated by cardiology. They felt that this was not consistent with acute coronary syndrome EKG had shown sinus tachycardia with a right bundle branch block. They did order echo with Doppler 9. Thrombocytopenia and leukopenia: Oncology has been consulted 10. Patient is somnolent and is unable to take any oral medications she is kept nothing by mouth and is receiving IV medications 11. CXR with multiple infiltrates pulmonary and infectious disease following Continue to monitor closely in ICU, start nutrition via NG tube, will follow in am
--- NOTE | 2017-01-31 10:53 | XR ---
EXAMINATION TYPE: XR abdomen 1V DATE OF EXAM: 01/31/2017 COMPARISON: NONE HISTORY: NG tube placement TECHNIQUE: One view abdominal series FINDINGS: Exam limited with only the upper abdomen included. NG appears to be coursing in the left abdomen like ly within the stomach. Basilar subsegmental consolidation and small effusions are seen. Hypertrophic change of the spine noted. Bowel gas pattern is nonspecific and not entirely included. IMPRESSION: 1. NG tube seen coursing in the left abdomen likely within the stomach. 2. Bilateral infiltrate and small effusion.
[2017-01-31 12:03] VITALS: BMI 27.6
[2017-01-31 12:22] LABS: Glucose,Whole Blood 107 mg/dL (75-99)
--- NOTE | 2017-01-31 12:30 | P.PN ---
Subjective Principal diagnosis: Altered mental status This is a pleasant 71-year-old female continuing be evaluated by the neurology service for altered mental status. She was brought to the [facility] emergency room for progressive confusion for a couple weeks. She has a history of brain cancer with surgical resection about 6 weeks ago. She has received chemotherapy and radiation for this and for breast cancer. She is being treated for urinary tract infection and HSV positive CSF. She had a computed tomography scan of the brain upon arrival and showed no acute intracranial abnormalities. It did show postsurgical changes in the left frontal region with generalized atrophy and small vessel ischemic changes. Her repeat CAT scan was unchanged . Cardiology has evaluated her due to some elevated troponin levels they do not think this is due to any significant cardiac etiology. She is becoming more responsive. She has been on postop Keppra since her tumor resection of the brain. She does not have a history of seizures. We ordered an EEG which did show recurrent seizure activity. We have added Vimpat to her Keppra, which we increased to 1000 mg twice a day. Recommendation was also made to discontinue Zosyn as this possibly can contribute to seizures. At the time of my exam she is asking comfortably in the ICU. Her daughter is at bedside and says she is becoming more alert and no seizure activity has been noticed. She has developed some left arm edema with reported home advisor weakness. Objective - Vital Signs Vital signs: Vital Signs Temp 97.4 F L 01/31/17 12:00 Pulse 92 01/31/17 12:00 Resp 20 01/31/17 12:00 BP 131/75 01/31/17 12:00 Pulse Ox 94 L 01/31/17 12:00 Intake & Output 01/30/17 01/31/17 01/31/17 18:59 06:59 18:59 Intake Total 1350 1649 700 Output Total 1150 815 360 Balance 200 834 340 Weight 64.2 kg 64.2 kg Intake: IV 1549 700 Acyclovir Sodium 650 mg 100 In Sodium Chloride 0.9% 100 ml @ 100 mls/hr IV Q8HR [facility] Rx#:[id number] Dextrose 5%-0.45% NaCl 1, 550 50 000 ml @ 50 mls/hr IV . Q20H [facility] Rx#:[id number] Lacosamide IV 100 mg In 50 Sodium Chloride 0.9% 50 ml @ 100 mls/hr IVPB BID [facility] Rx#:[id number] Magnesium Sulfate-D5w Pmx 200 1 gm In Dextrose/Water 1 100ml.bag @ 100 mls/hr IVPB Q1H [facility] Rx#: [id number] Potassium Chloride 20 meq 200 Lidocaine 2% Inj 20 mg In Sodium Chloride 0.9% 100 ml @ 55.5 mls/hr IVPB Q2HR [facility] Rx#:[id number] Sodium Chloride 0.9% 1, 999 000 ml @ 999 mls/hr IV . Q1H1M [facility] Rx#:[id number] levETIRAcetam IV 1,000 mg 100 In Saline 1 100ml.bag @ 400 mls/hr IVPB Q12HR [facility] Rx#:[id number] Intake, IV Titration 1350 100 Amount ACETAMINOPHEN IV (For NPO 100 ) 1,000 mg In Empty Bag 1 bag @ 400 mls/hr IVPB ONCE ONE Rx#:[id number] Acyclovir Sodium 650 mg 200 In Sodium Chloride 0.9% 100 ml @ 100 mls/hr IV Q8HR [facility] Rx#:[id number] Dextrose 5%-0.45% NaCl 1, 400 000 ml @ 50 mls/hr IV . Q20H [facility] Rx#:[id number] Lacosamide IV 100 mg In 50 Sodium Chloride 0.9% 50 ml @ 100 mls/hr IVPB BID [facility] Rx#:[id number] Potassium Chloride 10 meq 100 100 Lidocaine 2% Inj 10 mg In Sodium Chloride 0.9% 100 ml @ 100 mls/hr IVPB Q1HR [facility] Rx#:[id number] Potassium Chloride 20 meq 400 Lidocaine 2% Inj 20 mg In Sodium Chloride 0.9% 100 ml @ 55.5 mls/hr IVPB Q2HR [facility] Rx#:[id number] levETIRAcetam IV 500 mg 100 In Sodium Chloride 0.9% 100 ml @ 400 mls/hr IVPB Q12HR [facility] Rx#:[id number] Oral 0 0 Output: Urine 1150 815 360 Other: Voiding Method Indwelling Catheter Indwelling Catheter Indwelling Catheter # Bowel Movements 1 - Constitutional General appearance: Present: no acute distress - EENT Eyes: Present: EOMI, PERRLA. Absent: abnormal pupil, ptosis ENT: Present: hearing grossly normal - Neck Neck: Present: normal ROM. Absent: rigidity - Respiratory Respiratory: negative: prolonged expiration, prolonged inspiration - Cardiovascular Rhythm: regular - Gastrointestinal General gastrointestinal: Absent: distended, tenderness - Neurologic Neurologic Comment(s): Patient is awake and more alert. She will respond occasionally with simple yes or no answers. She follows simple commands. She answers appropriately with head nods to slightly more complex questions. There is no facial asymmetry. There is no lateralizing weakness other than decreased home advisor strength in the left hand. There is some edema to that arm. Plantar reflexes normal. Sensation to light touch is appreciated in all 4 extremities. She does confirm by her affirmative responses. He has an NG tube in place. No tremors or seizure-like activities are seen. She does have some quivering of the lower lip and jaw at times. We cannot tell if this is involuntary her not. - Labs CBC & Chem 7: 01/31/17 04:31 01/31/17 04:31 Labs: Abnormal Lab Results - Last 24 Hours (Table) 01/30/17 01/30/17 01/30/17 Range/Units 14:14 14:32 16:16 WBC (3.8-10.6) k/uL RBC (3.80-5.40) m/uL Hgb (11.4-16.0) gm/dL Hct (34.0-46.0) % RDW (11.5-15.5) % Plt Count (150-450) k/uL Lymphocytes # (1.0-4.8) k/uL Sodium (137-145) mmol/L Chloride 109 H (98-107) mmol/L Creatinine (0.52-1.04) mg/dL Glucose 105 H (74-99) mg/dL POC Glucose (mg/dL) 68 L 139 H (75-99) mg/dL Calcium 7.6 L (8.4-10.2) mg/dL Phosphorus (2.5-4.5) mg/dL Total Protein (6.3-8.2) g/dL Albumin (3.5-5.0) g/dL 01/30/17 01/31/17 01/31/17 Range/Units 18:46 04:31 04:31 WBC 1.8 L* (3.8-10.6) k/uL RBC 2.61 L (3.80-5.40) m/uL Hgb 8.1 L (11.4-16.0) gm/dL Hct 23.2 L (34.0-46.0) % RDW 18.1 H (11.5-15.5) % Plt Count 51 L (150-450) k/uL Lymphocytes # 0.3 L (1.0-4.8) k/uL Sodium 136 L (137-145) mmol/L Chloride 112 H (98-107) mmol/L Creatinine 0.50 L (0.52-1.04) mg/dL Glucose (74-99) mg/dL POC Glucose (mg/dL) 106 H (75-99) mg/dL Calcium 7.6 L (8.4-10.2) mg/dL Phosphorus 2.1 L (2.5-4.5) mg/dL Total Protein 3.8 L (6.3-8.2) g/dL Albumin 2.0 L (3.5-5.0) g/dL Microbiology - Last 24 Hours (Table) 01/28/17 05:40 Blood Culture - Preliminary Blood No Growth after 72 hours 01/28/17 10:41 Blood Culture - Preliminary Blood No Growth after 48 hours 01/28/17 10:40 Blood Culture - Preliminary Blood No Growth after 48 hours 01/29/17 11:40 CSF Gram Stain - Preliminary Cerebral Spinal Fluid CSF Culture - Preliminary Assessment and Plan (1) Altered mental status Status: Acute (2) Fever Status: Acute (3) Generalized weakness Status: Chronic (4) Brain tumor Status: Chronic (5) UTI (urinary tract infection) Status: Acute (6) Seizures Status: Acute (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 She has been started on IV acyclovir for likely HSV meningitis. We are awaiting complete CSF results. Infectious disease will continue to follow. Cardiology has seen the patient and have cleared her. Oncology will continue to follow. Continue to work with physical therapy. Continue Keppra and Vimpat at current dose. Continue seizure precautions and neurological checks. We will continue to follow. As for her left hand home advisor weakness, I think this is from some edema she is having in that hand. If this edema does resolve some and she still has some persistent weakness would suggest repeating a CT of the brain. We will repeat an EEG at some point to make sure her seizure activity is control. I have performed a history and physical on the above patient. I have reviewed the above note, and agree.
--- NOTE | 2017-01-31 12:45 | P.CNPUL ---
History of Present Illness Consult date: 01/31/17 Requesting physician: Cisco Bishop Reason for consult: other (ICU management) Chief complaint: Altered mental status History of present illness: This is a 71-year-old female with recent craniotomy to excise an isolated metastatic breast lesion in the brain. This was done about 6 weeks ago. Patient was initially diagnosed with breast cancer in late 2014, and she underwent lumpectomy with lymph node dissection in July of 2015. Patient had a 1.8 cm breast primary with 7 lymph nodes involved including macro metastasis. Follow-up PET scan done revealed no evidence of any metastatic disease, patient received adjuvant chemotherapy with Adriamycin and Cytoxan followed by Taxol. She completed treatment around December of 2015, and she proceeded to radiation. In November of 2016, patient had sudden onset of mental status change and she was found to have a 5.3 cm solitary brain mass consistent with metastatic disease. She was transferred to [facility], and she underwent resection followed by whole brain radiation. Patient is on clinical trial with memantine, given along with whole brain radiation which was completed on 01/13/2017. Postradiation, patient has been getting progressively weaker especially in the lower extremities, patient is becoming more lethargic, and to the point of inability to ambulate. Seen in the ER on 01/27/2017, and admitted with mental status change, profound weakness, pancytopenia type picture , CT of the brain 2 showed no new abnormality, blood cultures have been negative, patient was empirically placed on antibiotics, and yesterday the patient was placed on acyclovir for what seems to be a positive PCR from the spinal fluid serology. Patient is now being followed by many consultants, and considering the patient's mental status seems to be slightly getting worse, she was transferred to the ICU, and I was asked to see her on consultation. Patient is hemodynamically stable, she seems to be lethargic, but able to protect her airways, and in no form of respiratory distress at the time of my evaluation. Family is at bedside, CODE STATUS was also discussed with the family, and the patient is presently full code. Labs were reviewed, WBC count is 1.8 hemoglobin is 8.1 electrolytes are relatively normal except for slightly low potassium of 3.5. Spinal fluid report was reviewed, spinal fluid protein was high at 125, glucose was low at 35, and PCR for HSV 1 was positive. Gram stain is negative. Review of Systems ROS unobtainable: due to mental status Past Medical History Past Medical History: Asthma, Cancer, Hyperlipidemia, Hypertension, Liver Disease, Osteoarthritis (OA) Additional Past Medical History / Comment(s): Has BRCA2 gene, RIGHT BREAST CANCER WITH chemo and RADIATION. 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 THYROID NODULES. Rectal bleed (lower) with mclean divertiulosis. History of Any Multi-Drug Resistant Organisms: None Reported Past Surgical History: Breast Surgery, Section, Hysterectomy, Joint Replacement, Tubal Ligation Additional Past Surgical History / Comment(s): 01/21/16 BILATERAL SIMPLE MASTECTOMIES. 07/17/15 SENTINEL NODE BX/AXILLARY NODE DISECTION NEEDLE LOC. RIGHT LUMPECTOMY, 09/09/15. TOTAL RT HIP. L internal jugular mediport. Past Anesthesia/Blood Transfusion Reactions: Motion Sickness Past Psychological History: No Psychological Hx Reported Additional Psychological History / Comment(s): Pt resides with her spouse. . Smoking Status: Former smoker Past Alcohol Use History: Rare Additional Past Alcohol Use History / Comment(s): STARTED SMOKING AT AGE 10 QUIT AT AGE 49 SMOKED 1/2 PPD ( [id number]). Past Drug Use History: None Reported - Past Family History Daughter(s) Family Medical History: Cancer Additional Family Medical History / Comment(s): Pt has 3 daughters. Two have the Braca gene and one has breast cancer and the other has had bilateral mastectomies. The third jared does not have the BRACA gene-she has had thyroid cancer. Mother Sister(s) Daughter(s) Family Medical History: Cancer Additional Family Medical History / Comment(s): BREAST CANCER at age 52. Father Family Medical History: No Reported History Additional Family Medical History / Comment(s): at age 91 yrs. Medications and Allergies Home Medications Medication Instructions Recorded Confirmed Type Acetaminophen-Codeine 300-30mg 1 tab PO Q8H PRN 01/27/17 01/27/17 History [Tylenol #3] Enalapril Maleate [Vasotec] 5 mg PO BID 01/27/17 01/27/17 History Famotidine [Pepcid] 20 mg PO BID 01/27/17 01/27/17 History Memantine [Namenda] 10 mg PO BID 01/27/17 01/27/17 History Pantoprazole [Protonix] 40 mg PO DAILY 01/27/17 01/27/17 History Pravastatin Sodium [Pravachol] 20 mg PO HS 01/27/17 01/27/17 History amLODIPine [Norvasc] 5 mg PO DAILY 01/27/17 01/27/17 History levETIRAcetam [Keppra] 500 mg PO BID 01/27/17 01/27/17 History Allergies Allergy/AdvReac Type Severity Reaction Status Date / Time hydrocodone AdvReac Nausea & Verified 01/27/17 14:37 Vomiting hydromorphone HCl AdvReac Nausea & Verified 01/27/17 14:37 [From Dilaudid] Vomiting Physical Exam Vitals: Vital Signs Temp Pulse Pulse Resp BP Pulse Ox 01/31/17 12:00 97.4 F L 92 20 131/75 94 L 01/31/17 11:30 90 19 135/65 100 01/31/17 11:00 93 18 119/66 100 01/31/17 10:30 92 20 114/60 98 01/31/17 10:00 88 21 99/58 99 01/31/17 09:30 84 22 100/54 100 01/31/17 09:00 85 22 114/61 100 01/31/17 08:30 96 24 103/58 99 01/31/17 08:00 98.5 F 88 25 H 127/66 98 01/31/17 07:30 98 24 98/55 98 01/31/17 07:00 91 22 111/57 98 01/31/17 06:30 98 25 H 109/56 98 01/31/17 06:00 96 23 119/58 98 01/31/17 05:30 100 16 130/55 97 01/31/17 05:00 93 12 120/61 99 01/31/17 04:30 90 24 108/76 99 01/31/17 04:00 101.5 F H 88 22 109/54 100 01/31/17 03:30 89 23 107/50 100 01/31/17 03:00 86 26 H 100/54 100 01/31/17 02:30 91 25 H 152/104 100 01/31/17 02:00 92 24 106/52 99 01/31/17 01:30 95 26 H 106/54 99 01/31/17 01:00 93 25 H 102/56 100 06/18/17 00:30 99 28 H 107/69 93 L 01/31/17 00:08 90 21 113/64 97 01/31/17 00:00 98.2 F 92 25 H 113/64 98 01/30/17 23:30 87 18 110/66 98 01/30/17 23:00 92 22 87/45 99 01/30/17 22:30 92 20 90/44 99 01/30/17 22:00 94 22 90/47 99 01/30/17 21:30 89 20 114/52 98 01/30/17 21:00 87 23 97/49 99 01/30/17 20:30 92 23 103/59 99 01/30/17 20:00 97.7 F 93 20 119/47 96 01/30/17 19:43 99 01/30/17 19:30 90 22 90/53 99 01/30/17 19:00 95 26 H 89/44 99 01/30/17 18:30 97 34 H 71/43 98 01/30/17 18:00 92 22 83/49 98 01/30/17 17:30 98 22 85/44 98 01/30/17 17:00 107 H 25 H 96/53 97 01/30/17 16:30 107 H 24 92/41 97 01/30/17 16:00 106 H 20 90/53 97 01/30/17 15:30 106 H 90 29 H 93/47 98 01/30/17 15:00 99 27 H 119/57 99 01/30/17 14:45 96 24 114/57 97 01/30/17 14:30 98 23 114/57 96 01/30/17 14:15 102.5 F H 104 H 25 H 131/69 98 Intake and Output 01/30/17 01/31/17 01/31/17 22:59 06:59 14:59 Intake Total 1849 400 760 Output Total 500 515 395 Balance 1349 -115 365 Intake: IV 1149 400 760 0.9 10 Acyclovir Sodium 650 mg 100 In Sodium Chloride 0.9% 100 ml @ 100 mls/hr IV Q8HR [facility] Rx#:[id number] Dextrose 5%-0.45% NaCl 1, 150 400 100 000 ml @ 50 mls/hr IV . Q20H [facility] Rx#:[id number] Lacosamide IV 100 mg In 50 Sodium Chloride 0.9% 50 ml @ 100 mls/hr IVPB BID [facility] Rx#:[id number] Magnesium Sulfate-D5w Pmx 200 1 gm In Dextrose/Water 1 100ml.bag @ 100 mls/hr IVPB Q1H [facility] Rx#: [id number] Potassium Chloride 20 meq 200 Lidocaine 2% Inj 20 mg In Sodium Chloride 0.9% 100 ml @ 55.5 mls/hr IVPB Q2HR [facility] Rx#:[id number] Sodium Chloride 0.9% 1, 999 000 ml @ 999 mls/hr IV . Q1H1M [facility] Rx#:[id number] levETIRAcetam IV 1,000 mg 100 In Saline 1 100ml.bag @ 400 mls/hr IVPB Q12HR [facility] Rx#:[id number] Intake, IV Titration 700 Amount ACETAMINOPHEN IV (For NPO 100 ) 1,000 mg In Empty Bag 1 bag @ 400 mls/hr IVPB ONCE ONE Rx#:[id number] Acyclovir Sodium 650 mg 100 In Sodium Chloride 0.9% 100 ml @ 100 mls/hr IV Q8HR [facility] Rx#:[id number] Dextrose 5%-0.45% NaCl 1, 150 000 ml @ 50 mls/hr IV . Q20H [facility] Rx#:[id number] Lacosamide IV 100 mg In 50 Sodium Chloride 0.9% 50 ml @ 100 mls/hr IVPB BID [facility] Rx#:[id number] Potassium Chloride 10 meq 200 Lidocaine 2% Inj 10 mg In Sodium Chloride 0.9% 100 ml @ 100 mls/hr IVPB Q1HR [facility] Rx#:[id number] Potassium Chloride 20 meq 100 Lidocaine 2% Inj 20 mg In Sodium Chloride 0.9% 100 ml @ 55.5 mls/hr IVPB Q2HR [facility] Rx#:[id number] Oral 0 Output: Urine 500 515 395 Other: Voiding Method Indwelling Catheter Indwelling Catheter Indwelling Catheter # Bowel Movements 1 1 Weight 64.2 kg 64.2 kg Patient Weight 02/01/17 06:59 Weight 64.2 kg Physical Exam: Revealed a 71-year-old female, lethargic, arousable, opens eyes off and on, and does not verbalize much. Not in respiratory distress. HEENT:[Neck is supple.] [No neck masses.] [No thyromegaly.] [No JVD.] Evidence of left frontal craniotomy scar noted Chest: [Diminished breath sound bilaterally, no crackles or rhonchi or wheezes] Cardiac Exam: [Normal S1 and S2, no S3 gallop, no murmur.] Abdomen: [Soft, nontender, no megaly, no rebound, no guarding, normal bowel sounds.] Extremities: [No clubbing, no edema, no cyanosis.] Neurological Exam: Patient is drowsy and falls asleep easily but arousable and answers yes or no but goes right back to sleep, seems to be generally weak, no facial asymmetry noted. Results - Laboratory Findings CBC and BMP: 01/31/17 04:31 01/31/17 04:31 PT/INR, D-dimer PT 9.7 sec (9.0-12.0) 01/27/17 13:45 INR 0.9 (<1.1) 01/27/17 13:45 Abnormal lab findings: Abnormal Labs 01/27/17 01/27/17 01/27/17 13:45 13:45 13:45 WBC 3.0 L RBC Hgb Hct 33.5 L RDW 17.0 H Plt Count 60 L D Neutrophils # Lymphocytes # Lymphocytes # (Manual) 0.8 L Nucleated RBCs 7 H APTT Sodium 129 L Potassium Chloride 95 L Carbon Dioxide BUN 23 H Creatinine Glucose POC Glucose (mg/dL) Calcium Phosphorus Troponin I 0.106 H* Total Protein 5.4 L Albumin 3.2 L Triglycerides Cholesterol LDL Cholesterol, Calc Urine Appearance Urine Protein Urine Blood Ur Leukocyte Esterase Urine RBC Urine WBC Urine WBC Clumps Ur Squamous Epith Cells Amorphous Sediment Urine Bacteria Urine Mucus CSF Tot Nucleated Cells CSF Glucose CSF Total Protein Urine Opiates Screen HSV I DNA PCR 01/27/17 01/27/17 01/27/17 13:45 14:50 19:32 WBC RBC Hgb Hct RDW Plt Count Neutrophils # Lymphocytes # Lymphocytes # (Manual) Nucleated RBCs APTT 18.3 L Sodium Potassium Chloride Carbon Dioxide BUN Creatinine Glucose POC Glucose (mg/dL) Calcium Phosphorus Troponin I 0.126 H* Total Protein Albumin Triglycerides Cholesterol LDL Cholesterol, Calc Urine Appearance Cloudy H Urine Protein Trace H Urine Blood Small H Ur Leukocyte Esterase Moderate H Urine RBC 8 H Urine WBC 42 H Urine WBC Clumps Occasional H Ur Squamous Epith Cells 5 H Amorphous Sediment Rare H Urine Bacteria Many H Urine Mucus Occasional H CSF Tot Nucleated Cells CSF Glucose CSF Total Protein Urine Opiates Screen Detected H HSV I DNA PCR 01/28/17 01/28/17 01/28/17 01:55 05:40 05:40 WBC 3.0 L RBC 3.15 L Hgb 10.0 L D Hct 28.9 L RDW 17.2 H Plt Count 51 L Neutrophils # Lymphocytes # 0.4 L Lymphocytes # (Manual) Nucleated RBCs APTT Sodium Potassium Chloride Carbon Dioxide BUN Creatinine Glucose POC Glucose (mg/dL) Calcium Phosphorus Troponin I 0.103 H* Total Protein Albumin Triglycerides 246 H Cholesterol 218 H LDL Cholesterol, Calc 115 H Urine Appearance Urine Protein Urine Blood Ur Leukocyte Esterase Urine RBC Urine WBC Urine WBC Clumps Ur Squamous Epith Cells Amorphous Sediment Urine Bacteria Urine Mucus CSF Tot Nucleated Cells CSF Glucose CSF Total Protein Urine Opiates Screen HSV I DNA PCR 01/28/17 01/29/17 01/29/17 05:40 06:03 06:03 WBC 2.2 L RBC 3.27 L Hgb 10.3 L Hct 29.7 L RDW 17.7 H Plt Count 44 L* Neutrophils # Lymphocytes # 0.5 L Lymphocytes # (Manual) Nucleated RBCs APTT Sodium 129 L 133 L Potassium 3.3 L Chloride Carbon Dioxide 20 L BUN 18 H Creatinine 0.49 L Glucose 67 L POC Glucose (mg/dL) Calcium 7.9 L Phosphorus Troponin I Total Protein 4.8 L 5.0 L Albumin 2.6 L 2.8 L Triglycerides Cholesterol LDL Cholesterol, Calc Urine Appearance Urine Protein Urine Blood Ur Leukocyte Esterase Urine RBC Urine WBC Urine WBC Clumps Ur Squamous Epith Cells Amorphous Sediment Urine Bacteria Urine Mucus CSF Tot Nucleated Cells CSF Glucose CSF Total Protein Urine Opiates Screen HSV I DNA PCR 01/29/17 01/29/17 01/29/17 08:11 11:40 11:40 WBC RBC Hgb Hct RDW Plt Count Neutrophils # Lymphocytes # Lymphocytes # (Manual) Nucleated RBCs APTT Sodium Potassium Chloride Carbon Dioxide BUN Creatinine Glucose POC Glucose (mg/dL) 72 L Calcium Phosphorus Troponin I Total Protein Albumin Triglycerides Cholesterol LDL Cholesterol, Calc Urine Appearance Urine Protein Urine Blood Ur Leukocyte Esterase Urine RBC Urine WBC Urine WBC Clumps Ur Squamous Epith Cells Amorphous Sediment Urine Bacteria Urine Mucus CSF Tot Nucleated Cells 7 H CSF Glucose 35 L CSF Total Protein 125 H Urine Opiates Screen HSV I DNA PCR DETECTED H 01/29/17 01/30/17 01/30/17 19:56 05:37 05:37 WBC 1.7 L* RBC 2.63 L Hgb 8.5 L D Hct 23.1 L RDW 17.6 H Plt Count 51 L Neutrophils # 1.2 L Lymphocytes # 0.3 L Lymphocytes # (Manual) Nucleated RBCs APTT Sodium 166 H* 134 L Potassium 2.6 L* Chloride Carbon Dioxide BUN Creatinine Glucose POC Glucose (mg/dL) Calcium 8.2 L 8.1 L Phosphorus Troponin I Total Protein 4.1 L Albumin 2.2 L Triglycerides Cholesterol LDL Cholesterol, Calc Urine Appearance Urine Protein Urine Blood Ur Leukocyte Esterase Urine RBC Urine WBC Urine WBC Clumps Ur Squamous Epith Cells Amorphous Sediment Urine Bacteria Urine Mucus CSF Tot Nucleated Cells CSF Glucose CSF Total Protein Urine Opiates Screen HSV I DNA PCR 01/30/17 01/30/17 01/30/17 14:14 14:32 16:16 WBC RBC Hgb Hct RDW Plt Count Neutrophils # Lymphocytes # Lymphocytes # (Manual) Nucleated RBCs APTT Sodium Potassium Chloride 109 H Carbon Dioxide BUN Creatinine Glucose 105 H POC Glucose (mg/dL) 68 L 139 H Calcium 7.6 L Phosphorus Troponin I Total Protein Albumin Triglycerides Cholesterol LDL Cholesterol, Calc Urine Appearance Urine Protein Urine Blood Ur Leukocyte Esterase Urine RBC Urine WBC Urine WBC Clumps Ur Squamous Epith Cells Amorphous Sediment Urine Bacteria Urine Mucus CSF Tot Nucleated Cells CSF Glucose CSF Total Protein Urine Opiates Screen HSV I DNA PCR 01/30/17 01/31/17 01/31/17 18:46 04:31 04:31 WBC 1.8 L* RBC 2.61 L Hgb 8.1 L Hct 23.2 L RDW 18.1 H Plt Count 51 L Neutrophils # Lymphocytes # 0.3 L Lymphocytes # (Manual) Nucleated RBCs APTT Sodium 136 L Potassium Chloride 112 H Carbon Dioxide BUN Creatinine 0.50 L Glucose POC Glucose (mg/dL) 106 H Calcium 7.6 L Phosphorus 2.1 L Troponin I Total Protein 3.8 L Albumin 2.0 L Triglycerides Cholesterol LDL Cholesterol, Calc Urine Appearance Urine Protein Urine Blood Ur Leukocyte Esterase Urine RBC Urine WBC Urine WBC Clumps Ur Squamous Epith Cells Amorphous Sediment Urine Bacteria Urine Mucus CSF Tot Nucleated Cells CSF Glucose CSF Total Protein Urine Opiates Screen HSV I DNA PCR 01/31/17 12:21 WBC RBC Hgb Hct RDW Plt Count Neutrophils # Lymphocytes # Lymphocytes # (Manual) Nucleated RBCs APTT Sodium Potassium Chloride Carbon Dioxide BUN Creatinine Glucose POC Glucose (mg/dL) 107 H Calcium Phosphorus Troponin I Total Protein Albumin Triglycerides Cholesterol LDL Cholesterol, Calc Urine Appearance Urine Protein Urine Blood Ur Leukocyte Esterase Urine RBC Urine WBC Urine WBC Clumps Ur Squamous Epith Cells Amorphous Sediment Urine Bacteria Urine Mucus CSF Tot Nucleated Cells CSF Glucose CSF Total Protein Urine Opiates Screen HSV I DNA PCR - Diagnostic Findings Chest x-ray: image reviewed (No evidence of acute process noted on the chest x- ray.) Assessment and Plan Plan: Impression: 1 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 2 altered mental status secondary to herpes simplex encephalitis and also secondary to recent brain radiation treatment. 3 history of recent craniotomy and excision of a metastatic breast cancer mass. 4 generalized weakness secondary to above. 5 history of breast cancer with solitary brain metastasis. 6 pancytopenia, multifactorial. 7 acute urinary tract infection, urine cultures are pending at the time of this dictation. Recommendation: I fully agree with the present treatment plan, continue IV acyclovir, continue present supportive care measures, discussed her condition at bedside with the family and will continue to follow closely and monitor in the intensive care unit. Critical care time is 33min Time with Patient: Greater than 30
[2017-01-31] MEDS: POTASSIUM CHLORIDE ORAL LIQUID 40 MEQ/30 ML CUP NG-TUBE SCH ×2 (14:21→16:22)
[2017-01-31] MEDS ORDERED: SODIUM CHLORIDE 0.9% IVPB ONE (15:00)
[2017-01-31] MEDS ORDERED: VALPROATE SODIUM IVPB ONE (15:00)
--- NOTE | 2017-01-31 16:27 | P.PN ---
Subjective Principal diagnosis: Altered mental status Pleasant 71-year-old female who presented to Hospital with increasing confusion and weakness over several days. 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 She had undergone prior chemotherapy but has just received her course of radiation therapy to her brain. Apparently she was having some increasing weakness. But then she had increasing confusion. She then developed a fever and there was concern a urinary tract infection. However with her altered mental status lumbar puncture was performed. With a positive HSV-1 PCR the infectious diseases follow-up was requested. The patient is arousable. She opens her eyes. The patient is having rapid motion of the lower jaw or upper extremities. She however is arousable looks at observer and tracks with her eyes. Concerned that she's having a rigor rather than seizure. Objective - Vital Signs Vital signs: Vital Signs Temp 97.4 F L 01/31/17 12:00 Pulse 88 01/31/17 15:00 Resp 22 01/31/17 15:00 BP 145/68 01/31/17 15:00 Pulse Ox 100 01/31/17 15:00 Intake & Output 01/30/17 01/31/17 01/31/17 18:59 06:59 18:59 Intake Total 1350 1649 950 Output Total 1150 815 510 Balance 200 834 440 Weight 64.2 kg 64.2 kg Intake: IV 1549 940 0.9 40 Acyclovir Sodium 650 mg 100 In Sodium Chloride 0.9% 100 ml @ 100 mls/hr IV Q8HR [facility] Rx#:[id number] Dextrose 5%-0.45% NaCl 1, 550 250 000 ml @ 50 mls/hr IV . Q20H [facility] Rx#:[id number] Lacosamide IV 100 mg In 50 Sodium Chloride 0.9% 50 ml @ 100 mls/hr IVPB BID [facility] Rx#:[id number] Magnesium Sulfate-D5w Pmx 200 1 gm In Dextrose/Water 1 100ml.bag @ 100 mls/hr IVPB Q1H [facility] Rx#: [id number] Potassium Chloride 20 meq 200 Lidocaine 2% Inj 20 mg In Sodium Chloride 0.9% 100 ml @ 55.5 mls/hr IVPB Q2HR [facility] Rx#:[id number] Sodium Chloride 0.9% 1, 999 000 ml @ 999 mls/hr IV . Q1H1M [facility] Rx#:[id number] levETIRAcetam IV 1,000 mg 100 In Saline 1 100ml.bag @ 400 mls/hr IVPB Q12HR [facility] Rx#:[id number] Intake, IV Titration 1350 100 Amount ACETAMINOPHEN IV (For NPO 100 ) 1,000 mg In Empty Bag 1 bag @ 400 mls/hr IVPB ONCE ONE Rx#:[id number] Acyclovir Sodium 650 mg 200 In Sodium Chloride 0.9% 100 ml @ 100 mls/hr IV Q8HR [facility] Rx#:[id number] Dextrose 5%-0.45% NaCl 1, 400 000 ml @ 50 mls/hr IV . Q20H [facility] Rx#:[id number] Lacosamide IV 100 mg In 50 Sodium Chloride 0.9% 50 ml @ 100 mls/hr IVPB BID [facility] Rx#:[id number] Potassium Chloride 10 meq 100 100 Lidocaine 2% Inj 10 mg In Sodium Chloride 0.9% 100 ml @ 100 mls/hr IVPB Q1HR [facility] Rx#:[id number] Potassium Chloride 20 meq 400 Lidocaine 2% Inj 20 mg In Sodium Chloride 0.9% 100 ml @ 55.5 mls/hr IVPB Q2HR [facility] Rx#:[id number] levETIRAcetam IV 500 mg 100 In Sodium Chloride 0.9% 100 ml @ 400 mls/hr IVPB Q12HR [facility] Rx#:[id number] Oral 0 0 Tube Feeding 10 Output: Urine 1150 815 510 Other: Voiding Method Indwelling Catheter Indwelling Catheter Indwelling Catheter # Bowel Movements 1 1 - Exam 71-year-old woman comfortable at this time. Less agitated. HEENT: Anicteric conjunctiva are pink and moist nasal mucosa grossly intact without significant lesions, oral cavity is dry. Neck: The neck is supple without significant lymphadenopathy or thyromegaly. Lungs: Good bilateral air entry without significant crackles or wheezing. There is no significant bronchial sounds. There is no egophony or dullness. Heart: Irregular rhythm with an audible S1-S2, no S3 no S4. There is no significant murmur click or rub, PMI was nondisplaced. Abdomen: Positive bowel sounds soft and nontender without palpable masses or organomegaly. There was no guarding or rebound. Extremities: The upper extremities have excellent pulses they are symmetric, no significant petechiae or telangiectasia. No splinter hemorrhages were noted. Lower extremities have just trace edema and 2+ pulses. Neuro: Is noted she is arousable. Not as agitated as noted from before. She did not have any seizure-like activity during this particular exam. Per nursing noted just earlier when she attempted to speak she was having rapid movements of her lower jaw. As noted followed to simple commands when of eye- opening was having a rapid up-and-down motion of the jaw quite similar to bilateral upper extremities. Despite this she did respond to the observer open her eyes look to the observer and tract. - Labs CBC & Chem 7: 01/31/17 04:31 01/31/17 12:35 Labs: Abnormal Lab Results - Last 24 Hours (Table) 01/30/17 01/30/17 01/31/17 Range/Units 16:16 18:46 04:31 WBC 1.8 L* (3.8-10.6) k/uL RBC 2.61 L (3.80-5.40) m/uL Hgb 8.1 L (11.4-16.0) gm/dL Hct 23.2 L (34.0-46.0) % RDW 18.1 H (11.5-15.5) % Plt Count 51 L (150-450) k/uL Lymphocytes # 0.3 L (1.0-4.8) k/uL Sodium (137-145) mmol/L Potassium (3.5-5.1) mmol/L Chloride 109 H (98-107) mmol/L Creatinine (0.52-1.04) mg/dL Glucose 105 H (74-99) mg/dL POC Glucose (mg/dL) 106 H (75-99) mg/dL Calcium 7.6 L (8.4-10.2) mg/dL Phosphorus (2.5-4.5) mg/dL Total Protein (6.3-8.2) g/dL Albumin (3.5-5.0) g/dL 01/31/17 01/31/17 01/31/17 Range/Units 04:31 12:21 12:35 WBC (3.8-10.6) k/uL RBC (3.80-5.40) m/uL Hgb (11.4-16.0) gm/dL Hct (34.0-46.0) % RDW (11.5-15.5) % Plt Count (150-450) k/uL Lymphocytes # (1.0-4.8) k/uL Sodium 136 L (137-145) mmol/L Potassium 3.4 L (3.5-5.1) mmol/L Chloride 112 H (98-107) mmol/L Creatinine 0.50 L (0.52-1.04) mg/dL Glucose (74-99) mg/dL POC Glucose (mg/dL) 107 H (75-99) mg/dL Calcium 7.6 L (8.4-10.2) mg/dL Phosphorus 2.1 L (2.5-4.5) mg/dL Total Protein 3.8 L (6.3-8.2) g/dL Albumin 2.0 L (3.5-5.0) g/dL Microbiology - Last 24 Hours (Table) 01/29/17 11:40 CSF Gram Stain - Preliminary Cerebral Spinal Fluid CSF Culture - Preliminary 01/28/17 10:41 Blood Culture - Preliminary Blood No Growth after 72 hours 01/28/17 10:40 Blood Culture - Preliminary Blood No Growth after 72 hours 01/28/17 05:40 Blood Culture - Preliminary Blood No Growth after 72 hours Laboratory Results WBC 1.8 k/uL (3.8-10.6) L* 01/31/17 04:31 RBC 2.61 m/uL (3.80-5.40) L 01/31/17 04:31 Hgb 8.1 gm/dL (11.4-16.0) L 01/31/17 04:31 Hct 23.2 % (34.0-46.0) L 01/31/17 04:31 MCV 88.9 fL (80.0-100.0) 01/31/17 04:31 MCH 31.0 pg (25.0-35.0) 01/31/17 04:31 MCHC 34.9 g/dL (31.0-37.0) 01/31/17 04:31 RDW 18.1 % (11.5-15.5) H 01/31/17 04:31 Plt Count 51 k/uL (150-450) L 01/31/17 04:31 Neutrophils % 76 % 01/31/17 04:31 Neutrophils % (Manual) 66.0 % 01/27/17 13:45 Lymphocytes % 17 % 01/31/17 04:31 Lymphocytes % (Manual) 25.0 % 01/27/17 13:45 Monocytes % 3 % 01/31/17 04:31 Monocytes % (Manual) 8.0 % 01/27/17 13:45 Eosinophils % 1 % 01/31/17 04:31 Eosinophils % (Manual) 1.0 % 01/27/17 13:45 Basophils % 0 % 01/31/17 04:31 Neutrophils # 1.4 k/uL (1.3-7.7) 01/31/17 04:31 Neutrophils # (Manual) 2.0 k/uL (1.3-7.7) 01/27/17 13:45 Lymphocytes # 0.3 k/uL (1.0-4.8) L 01/31/17 04:31 Lymphocytes # (Manual) 0.8 k/uL (1.0-4.8) L 01/27/17 13:45 Monocytes # 0.1 k/uL (0-1.0) 01/31/17 04:31 Monocytes # (Manual) 0.2 k/uL (0-1.0) 01/27/17 13:45 Eosinophils # 0.0 k/uL (0-0.7) 01/31/17 04:31 Eosinophils # (Manual) 0.0 k/uL (0-0.7) 01/27/17 13:45 Basophils # 0.0 k/uL (0-0.2) 01/31/17 04:31 Nucleated RBCs 7 /100 WBC (0-0) H 01/27/17 13:45 Manual Slide Review Performed 01/30/17 05:37 Polychromasia Present 01/30/17 05:37 Hyperchromasia Slight 01/31/17 04:31 Poikilocytosis Slight 01/31/17 04:31 Anisocytosis Slight 01/31/17 04:31 Spherocytes Present 01/30/17 05:37 Ovalocytes Present 01/30/17 05:37 Fragmented RBCs Present 01/30/17 05:37 PT 9.7 sec (9.0-12.0) 01/27/17 13:45 INR 0.9 (<1.1) 01/27/17 13:45 APTT 18.3 sec (22.0-30.0) L 01/27/17 13:45 Fibrinogen 383 mg/dL (200-500) 01/29/17 16:49 Sodium 136 mmol/L (137-145) L 01/31/17 04:31 Potassium 3.4 mmol/L (3.5-5.1) L 01/31/17 12:35 Chloride 112 mmol/L (98-107) H 01/31/17 04:31 Carbon Dioxide 22 mmol/L (22-30) 01/31/17 04:31 Anion Gap 2 mmol/L 01/31/17 04:31 BUN 7 mg/dL (7-17) 01/31/17 04:31 Creatinine 0.50 mg/dL (0.52-1.04) L 01/31/17 04:31 Est GFR (MDRD) Af Amer >60 (>60 ml/min/1.73 sqM) 01/31/17 04:31 Est GFR (MDRD) Non-Af >60 (>60 ml/min/1.73 sqM) 01/31/17 04:31 Glucose 96 mg/dL (74-99) 01/31/17 04:31 POC Glucose (mg/dL) 107 mg/dL (75-99) H 01/31/17 12:21 POC Glu [employer] Rianna Virgen 01/31/17 12:21 Plasma Lactic Acid M[place] 0.9 mmol/L (0.7-2.0) 01/28/17 05:40 Calcium 7.6 mg/dL (8.4-10.2) L 01/31/17 04:31 Phosphorus 2.1 mg/dL (2.5-4.5) L 01/31/17 04:31 Magnesium 1.6 mg/dL (1.6-2.3) 01/31/17 04:31 Total Bilirubin 0.4 mg/dL (0.2-1.3) 01/31/17 04:31 AST 26 U/L (14-36) 01/31/17 04:31 ALT 48 U/L (9-52) 01/31/17 04:31 Alkaline Phosphatase 48 U/L (38-126) 01/31/17 04:31 Ammonia <9 umol/L (<30) 01/27/17 14:48 Total Creatine Kinase 85 U/L (30-135) 01/28/17 01:55 CK-MB (CK-2) 1.2 ng/mL (0.0-2.4) 01/28/17 01:55 CK-MB (CK-2) Rel Index 1.4 01/28/17 01:55 Troponin I 0.103 ng/mL (0.000-0.034) H* 01/28/17 01:55 Total Protein 3.8 g/dL (6.3-8.2) L 01/31/17 04:31 Albumin 2.0 g/dL (3.5-5.0) L 01/31/17 04:31 Triglycerides 246 mg/dL (<150) H 01/28/17 05:40 Cholesterol 218 mg/dL (<200) H 01/28/17 05:40 LDL Cholesterol, Calc 115 mg/dL (0-99) H 01/28/17 05:40 HDL Cholesterol 54 mg/dL (40-60) 01/28/17 05:40 CA 15-3 Antigen 10.3 U/mL (<35.1) 01/30/17 05:37 Urine Color Yellow 01/27/17 14:50 Urine Appearance Cloudy (Clear) H 01/27/17 14:50 Urine pH 6.5 (5.0-8.0) 01/27/17 14:50 Ur Specific [place] 1.013 (1.001-1.035) 01/27/17 14:50 Urine Protein Trace (Negative) H 01/27/17 14:50 Urine Glucose (UA) Negative (Negative) 01/27/17 14:50 Urine Ketones Negative (Negative) 01/27/17 14:50 Urine Blood Small (Negative) H 01/27/17 14:50 Urine Nitrite Negative (Negative) 01/27/17 14:50 Urine Bilirubin Negative (Negative) 01/27/17 14:50 Urine Urobilinogen 2.0 mg/dL (<2.0) 01/27/17 14:50 Ur Leukocyte Esterase Moderate (Negative) H 01/27/17 14:50 Urine RBC 8 /hpf (0-5) H 01/27/17 14:50 Urine WBC 42 /hpf (0-5) H 01/27/17 14:50 Urine WBC Clumps Occasional /hpf (None) H 01/27/17 14:50 Ur Squamous Epith Cells 5 /hpf (0-4) H 01/27/17 14:50 Amorphous Sediment Rare /hpf (None) H 01/27/17 14:50 Urine Bacteria Many /hpf (None) H 01/27/17 14:50 Urine Mucus Occasional /hpf (None) H 01/27/17 14:50 CSF Tube Number 4 01/29/17 11:40 CSF Volume 2.0 01/29/17 11:40 CSF Appearance Clear 01/29/17 11:40 CSF Color Colorless 01/29/17 11:40 CSF RBC 0 u/L (0-10) 01/29/17 11:40 CSF Tot Nucleated Cells 7 u/L (0-5) H 01/29/17 11:40 CSF Glucose 35 mg/dL (40-70) L 01/29/17 11:40 CSF Total Protein 125 mg/dL (12-60) H 01/29/17 11:40 Vancomycin Trough 16.9 ug/mL 01/30/17 16:30 Urine Opiates Screen Detected (NotDetected) H 01/27/17 14:50 Ur Oxycodone Screen Not Detected (NotDetected) 01/27/17 14:50 Urine Methadone Screen Not Detected (NotDetected) 01/27/17 14:50 Ur Propoxyphene Screen Not Detected (NotDetected) 01/27/17 14:50 Ur Barbiturates Screen Not Detected (NotDetected) 01/27/17 14:50 U Tricyclic Antidepress Not Detected (NotDetected) 01/27/17 14:50 Ur Phencyclidine Scrn Not Detected (NotDetected) 01/27/17 14:50 Ur Amphetamines Screen Not Detected (NotDetected) 01/27/17 14:50 U Methamphetamines Scrn Not Detected (NotDetected) 01/27/17 14:50 U Benzodiazepines Scrn Not Detected (NotDetected) 01/27/17 14:50 Urine Cocaine Screen Not Detected (NotDetected) 01/27/17 14:50 U Marijuana (THC) Screen Not Detected (NotDetected) 01/27/17 14:50 HSV I DNA PCR DETECTED (Not detected) H 01/29/17 11:40 HSV II DNA PCR Not detected (Not detected) 01/29/17 11:40 HSV (PCR) Source (()) 01/29/17 11:40 Microbiology 01/29/17 11:40 Cerebral Spinal Fluid CSF Gram Stain - Preliminary 01/29/17 11:40 Cerebral Spinal Fluid CSF Culture - Preliminary 01/28/17 10:41 Blood Blood Culture - Preliminary No Growth after 72 hours 01/28/17 10:40 Blood Blood Culture - Preliminary No Growth after 72 hours 01/28/17 05:40 Blood Blood Culture - Preliminary No Growth after 72 hours 01/28/17 11:25 Urine,Catheterized Urine Culture - Final Assessment and Plan (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 She was doing relatively well but then had the onset of altered mental status. Because she had a fever there was concern for underlying infection as well as the evidence of worsening pancytopenia thought to be due to underlying infection. Lumbar puncture was performed. There is no evidence of any significant bacterial infection of the central nervous system. However the PCR for HSV 1 and is coming back as positive. She is immunosuppressed and a common event with herpetic encephalitis in this situation. Intravenous acyclovir 10 mg/kg is being given. Other have an expiratory being discontinued given her significant pancytopenia. Hematology is following. EEG was abnormal she was having some further seizures and then Vimpat added to her Keppra. With her current motion concerns of this could be further seizure. Neurology adds Valproic acid. I am somewhat concerned this is rigor. Blood cultures are requested. Antibiotic therapy with cefepime was initiated due to her relative neutropenia and recent fever. Her family understands that her prognosis is quite poor Status: Acute (2) Leukopenia Status: Acute (3) Pancytopenia Status: Acute
[2017-01-31] MEDS: CEFEPIME 2 GM in SODIUM CHLORIDE 0.9% 50 ML IVPB SCH ×2 (17:04→23:25)
[2017-01-31 17:52] LABS: Glucose,Whole Blood 104 mg/dL (75-99)
[2017-01-31] MEDS: VALPROATE SODIUM 500 MG in SODIUM CHLORIDE 0.9% 50 ML IVPB SCH (18:45)
[2017-01-31] MEDS: PRAVASTATIN SODIUM 20 MG TAB PO SCH (20:14)
[2017-01-31 23:29] LABS: Glucose,Whole Blood 128 mg/dL (75-99)
--- NOTE | 2017-02-01 00:21 | P.PN ---
Subjective The patient is more awake, compared to her exam yesterday though only intermittently responsive. She has been having some jerking movements of her jaw. She was seen status post EEG Objective - Vital Signs Vital signs: Vital Signs Temp 101.2 F H 01/31/17 20:00 Pulse 93 01/31/17 20:30 Resp 24 01/31/17 20:30 BP 130/60 01/31/17 20:30 Pulse Ox 100 01/31/17 20:30 Intake & Output 01/31/17 01/31/17 02/01/17 06:59 18:59 06:59 Intake Total 1649 1290 270 Output Total 815 620 220 Balance 834 670 50 Weight 64.2 kg 64.2 kg Intake: IV 1549 1210 260 0.9 60 10 Acyclovir Sodium 650 mg 200 In Sodium Chloride 0.9% 100 ml @ 100 mls/hr IV Q8HR [facility] Rx#:[id number] Dextrose 5%-0.45% NaCl 1, 550 400 100 000 ml @ 50 mls/hr IV . Q20H [facility] Rx#:[id number] Lacosamide IV 100 mg In 50 Sodium Chloride 0.9% 50 ml @ 100 mls/hr IVPB BID [facility] Rx#:[id number] Magnesium Sulfate-D5w Pmx 200 1 gm In Dextrose/Water 1 100ml.bag @ 100 mls/hr IVPB Q1H [facility] Rx#: [id number] Potassium Chloride 20 meq 200 Lidocaine 2% Inj 20 mg In Sodium Chloride 0.9% 100 ml @ 55.5 mls/hr IVPB Q2HR [facility] Rx#:[id number] Sodium Chloride 0.9% 1, 999 000 ml @ 999 mls/hr IV . Q1H1M [facility] Rx#:[id number] Valproate Sodium 500 mg 50 In Sodium Chloride 0.9% 50 ml @ 50 mls/hr IVPB Q8HR [facility] Rx#:[id number] levETIRAcetam IV 1,000 mg 100 100 In Saline 1 100ml.bag @ 400 mls/hr IVPB Q12HR [facility] Rx#:[id number] Intake, IV Titration 100 Amount Potassium Chloride 10 meq 100 Lidocaine 2% Inj 10 mg In Sodium Chloride 0.9% 100 ml @ 100 mls/hr IVPB Q1HR [facility] Rx#:[id number] Oral 0 Tube Feeding 50 10 Other 30 Output: Urine 815 620 220 Other: Voiding Method Indwelling Catheter Indwelling Catheter Indwelling Catheter # Bowel Movements 1 - Constitutional General appearance: Present: mild distress - EENT Eyes: Present: PERRLA ENT: Present: normal oropharynx - Respiratory Respiratory: bilateral: CTA - Cardiovascular Rhythm: regular Heart sounds: normal: S1, S2 - Gastrointestinal General gastrointestinal: Present: decreased bowel sounds, soft - Integumentary Integumentary: Present: normal - Neurologic Neurologic Comment(s): Patient is more awake. However she is only intermittently responsive . Jerking movements of her jaw noted. She is moving her upper extremities, but not her lower extremities - Labs CBC & Chem 7: 01/31/17 04:31 01/31/17 18:09 Labs: Abnormal Lab Results - Last 24 Hours (Table) 01/31/17 01/31/17 01/31/17 Range/Units 04:31 04:31 12:21 WBC 1.8 L* (3.8-10.6) k/uL RBC 2.61 L (3.80-5.40) m/uL Hgb 8.1 L (11.4-16.0) gm/dL Hct 23.2 L (34.0-46.0) % RDW 18.1 H (11.5-15.5) % Plt Count 51 L (150-450) k/uL Lymphocytes # 0.3 L (1.0-4.8) k/uL Sodium 136 L (137-145) mmol/L Potassium (3.5-5.1) mmol/L Chloride 112 H (98-107) mmol/L Creatinine 0.50 L (0.52-1.04) mg/dL POC Glucose (mg/dL) 107 H (75-99) mg/dL Calcium 7.6 L (8.4-10.2) mg/dL Phosphorus 2.1 L (2.5-4.5) mg/dL Total Protein 3.8 L (6.3-8.2) g/dL Albumin 2.0 L (3.5-5.0) g/dL 01/31/17 01/31/17 01/31/17 Range/Units 12:35 17:49 23:28 WBC (3.8-10.6) k/uL RBC (3.80-5.40) m/uL Hgb (11.4-16.0) gm/dL Hct (34.0-46.0) % RDW (11.5-15.5) % Plt Count (150-450) k/uL Lymphocytes # (1.0-4.8) k/uL Sodium (137-145) mmol/L Potassium 3.4 L (3.5-5.1) mmol/L Chloride (98-107) mmol/L Creatinine (0.52-1.04) mg/dL POC Glucose (mg/dL) 104 H 128 H (75-99) mg/dL Calcium (8.4-10.2) mg/dL Phosphorus (2.5-4.5) mg/dL Total Protein (6.3-8.2) g/dL Albumin (3.5-5.0) g/dL Microbiology - Last 24 Hours (Table) 01/29/17 11:40 CSF Gram Stain - Preliminary Cerebral Spinal Fluid CSF Culture - Preliminary 01/28/17 10:41 Blood Culture - Preliminary Blood No Growth after 72 hours 01/28/17 10:40 Blood Culture - Preliminary Blood No Growth after 72 hours 01/28/17 05:40 Blood Culture - Preliminary Blood No Growth after 72 hours Assessment and Plan (1) Fever Narrative/Plan: HSV PCR in the spinal fluid came back positive, consistent with herpes encephalitis. This would explain the fever, as well as her mental status changes. Patient is being followed by ID. She has been placed on IV acyclovir. Status: Acute (2) Pancytopenia Narrative/Plan: This appears to be due to the viral infection. While total white count is low , ANC is greater than 1000. Continue to follow with supportive transfusions or growth factors as needed Status: Acute (3) Breast cancer Narrative/Plan: CT of the chest and pelvis, as well as CT of the brain revealed no evidence of any progressive cancer. Therefore the current presentation appears to be related to the herpes encephalitis. Results of the CT scans were discussed with the various family members , including her Status: Acute
[2017-02-01] MEDS: VALPROATE SODIUM 500 MG in SODIUM CHLORIDE 0.9% 50 ML IVPB SCH ×3 (00:23→16:38)
[2017-02-01] MEDS: DEXTROSE 5%-0.45% NACL 1,000 ML IV SCH ×2 (04:07→13:36)
[2017-02-01 04:40] LABS: Anisocytosis Slight; Basophils % (A) 0 %; CH 32.3; CHCM 35.9; Eosinophils % (A) 1 %; HCT 23.8 % (34.0-46.0); HDW 3.46; HGB 8.4 gm/dL (11.4-16.0); Luc # (Auto) 0.05; Luc % (Auto) 3; Lymphocytes # (A) 0.3 k/uL (1.0-4.8); Lymphocytes % (A) 17 %; MCH 31.9 pg (25.0-35.0); MCHC 35.3 g/dL (31.0-37.0); MCV 90.6 fL (80.0-100.0); Mean Platelet Volume 6.9; Monocytes % (A) 2 %; Neutrophils # (A) 1.5 k/uL (1.3-7.7); Neutrophils % (A) 77 %; Poikilocytosis Slight; RBC 2.63 m/uL (3.80-5.40); RDW 18.4 % (11.5-15.5); WBC (Perox) 2.06
[2017-02-01 04:59] LABS: ALT 40 U/L (9-52); AST 23 U/L (14-36); Alkaline Phosphatase 55 U/L (38-126); Anion Gap 6 mmol/L; Blood Urea Nitrogen 10 mg/dL (7-17); Calcium 7.4 mg/dL (8.4-10.2); Carbon Dioxide 20 mmol/L (22-30); Chloride 112 mmol/L (98-107); Glucose 119 mg/dL (74-99); Non-African American GFR(MDRD) >60 (>60 ml/min/1.73 sqM); Phosphorous 2.2 mg/dL (2.5-4.5); Potassium 3.8 mmol/L (3.5-5.1); Sodium 138 mmol/L (137-145); Total Bilirubin 0.4 mg/dL (0.2-1.3); Total Protein 3.9 g/dL (6.3-8.2)
[2017-02-01] MEDS ORDERED: POTASSIUM CHLORIDE ORAL LIQUID 40 MEQ/30 ML CUP NG-TUBE SCH (06:00)
[2017-02-01 06:18] LABS: Glucose,Whole Blood 131 mg/dL (75-99)
[2017-02-01] MEDS ORDERED: Phosphorus Replacement Protoco 1 EACH MISC MISCELLANE PRN (07:02)
[2017-02-01] MEDS ORDERED: SODIUM PHOSPHATE 10 MMOL in SODIUM CHLORIDE 0.9% 250 ML IVPB ONE (07:02)
[2017-02-01] MEDS: CEFEPIME 2 GM in SODIUM CHLORIDE 0.9% 50 ML IVPB SCH (07:19)
[2017-02-01] MEDS: ACYCLOVIR SODIUM 650 MG in SODIUM CHLORIDE 0.9% 100 ML IV SCH (08:12)
[2017-02-01] MEDS: MEMANTINE 10 MG TAB PO SCH ×2 (10:08→21:17)
[2017-02-01] MEDS: amLODIPine 5 MG TAB PO SCH (10:08)
[2017-02-01] MEDS: PANTOPRAZOLE 40 MG/10 ML VIAL IVP SCH (10:08)
[2017-02-01] MEDS: LISINOPRIL 10 MG TAB PO SCH (10:08)
[2017-02-01] MEDS: levETIRAcetam IV 1,000 MG in SALINE 1 100ML.BAG IVPB SCH ×2 (10:08→22:03)
--- NOTE | 2017-02-01 11:56 | P.PN ---
Subjective this is a 71-year-old female, patient of Dr. Crowley. She has a known past medical history of breast cancer with bilateral mastectomy requiring chemotherapy, brain cancer with brain tumor removed about 6 weeks ago. Last radiation treatment was Wednesday of last week. Patient also has a history of hypertension, hyperlipidemia, GERD and was a former smoker. Patient has been living at home initially had been doing okay working with physical therapy. Over the last couple of weeks patient has declined physically. She was unable to stand. She was having falls. Started having decrease in appetite. Yesterday patient was becoming more lethargic. Family was concerned and brought her into the emergency room for further evaluation. She was found have a temp of 101.4 heart rate of 116. There was evidence of a UTI. She was initially started on Rocephin. Antibiotic were switched to Zosyn and Levaquin subsequently Levaquin was discontinued and she was started on IV vancomycin infectious disease consultation is following. Over the weekend patient continued to have worsening in her mental status. And she was transferred to the ICU. EEG completed showing eizure activity. Neurology has increased the Keppra to 1000 mg every 12 hours. Depakote 500 mg IV every 8 hours has also been added. She also on Vimpat 100 mg IV twice a day. Infectious disease has adjusted antibiotics to cefepime. She is also on acyclovir for the HSV that was found in the cerebral spinal fluid. Patient is still lethargic does respond to pain. If family at bedside. They're questioning about possible hospice. Patient has had really no improvement in her mentation. Patient continues to have fevers. Temp last night of 101.2 Objective - Vital Signs Vital signs: Vital Signs Temp 98.9 F 02/01/17 08:00 Pulse 117 H 02/01/17 11:00 Resp 20 02/01/17 11:00 BP 111/79 02/01/17 11:00 Pulse Ox 98 02/01/17 11:00 Intake & Output 01/31/17 02/01/17 02/01/17 18:59 06:59 18:59 Intake Total 1290 1790 900 Output Total 620 568 690 Balance 670 1222 210 Weight 64.2 kg 65.7 kg Intake: IV 1210 1260 690 0.9 60 60 40 ACETAMINOPHEN IV (For NPO 100 ) 1,000 mg In Empty Bag 1 bag @ 400 mls/hr IVPB ONCE [facility]N Rx#:[id number] Acyclovir Sodium 650 mg 200 100 100 In Sodium Chloride 0.9% 100 ml @ 100 mls/hr IV Q8HR [facility] Rx#:[id number] Dextrose 5%-0.45% NaCl 1, 400 750 400 000 ml @ 50 mls/hr IV . Q20H [facility] Rx#:[id number] Lacosamide IV 100 mg In 50 50 Sodium Chloride 0.9% 50 ml @ 100 mls/hr IVPB BID [facility] Rx#:[id number] Magnesium Sulfate-D5w Pmx 200 1 gm In Dextrose/Water 1 100ml.bag @ 100 mls/hr IVPB Q1H [facility] Rx#: [id number] Potassium Chloride 20 meq 200 Lidocaine 2% Inj 20 mg In Sodium Chloride 0.9% 100 ml @ 55.5 mls/hr IVPB Q2HR [facility] Rx#:[id number] Valproate Sodium 500 mg 100 50 In Sodium Chloride 0.9% 50 ml @ 50 mls/hr IVPB Q8HR [facility] Rx#:[id number] levETIRAcetam IV 1,000 mg 100 100 100 In Saline 1 100ml.bag @ 400 mls/hr IVPB Q12HR [facility] Rx#:[id number] Intake, IV Titration 50 Amount Cefepime 2 gm In Sodium 50 Chloride 0.9% 50 ml @ 100 mls/hr IVPB Q8HR [facility] Rx# :[id number] Tube Feeding 50 240 210 Other 30 240 Output: Urine 620 568 690 Other: Voiding Method Indwelling Catheter Indwelling Catheter Indwelling Catheter # Bowel Movements 1 1 - Exam Head normocephalic Neck supple Lungs clear to auscultation bilaterally no wheezing or crackles Heart regular rate and rhythm S1-S2, no rub or gallop Abdomen is soft nontender nondistended positive bowel sounds no hepatosplenomegaly Extremities no edema Neuro patient is somnolent. Responds to sternal chest problem. She'll open her eyes. And then closes them. She does have tremor throughout her body - Labs CBC & Chem 7: 02/01/17 04:25 02/01/17 04:25 Labs: Abnormal Lab Results - Last 24 Hours (Table) 01/29/17 01/31/17 01/31/17 Range/Units 11:40 12:21 12:35 WBC (3.8-10.6) k/uL RBC (3.80-5.40) m/uL Hgb (11.4-16.0) gm/dL Hct (34.0-46.0) % RDW (11.5-15.5) % Plt Count (150-450) k/uL Lymphocytes # (1.0-4.8) k/uL Potassium 3.4 L (3.5-5.1) mmol/L Chloride (98-107) mmol/L Carbon Dioxide (22-30) mmol/L Creatinine (0.52-1.04) mg/dL Glucose (74-99) mg/dL POC Glucose (mg/dL) 107 H (75-99) mg/dL Calcium (8.4-10.2) mg/dL Phosphorus (2.5-4.5) mg/dL Total Protein (6.3-8.2) g/dL Albumin (3.5-5.0) g/dL HSV I DNA PCR DETECTED H (Not detected) 01/31/17 01/31/17 02/01/17 Range/Units 17:49 23:28 04:25 WBC 2.0 L* (3.8-10.6) k/uL RBC 2.63 L (3.80-5.40) m/uL Hgb 8.4 L (11.4-16.0) gm/dL Hct 23.8 L (34.0-46.0) % RDW 18.4 H (11.5-15.5) % Plt Count 50 L* (150-450) k/uL Lymphocytes # 0.3 L (1.0-4.8) k/uL Potassium (3.5-5.1) mmol/L Chloride (98-107) mmol/L Carbon Dioxide (22-30) mmol/L Creatinine (0.52-1.04) mg/dL Glucose (74-99) mg/dL POC Glucose (mg/dL) 104 H 128 H (75-99) mg/dL Calcium (8.4-10.2) mg/dL Phosphorus (2.5-4.5) mg/dL Total Protein (6.3-8.2) g/dL Albumin (3.5-5.0) g/dL HSV I DNA PCR (Not detected) 02/01/17 02/01/17 Range/Units 04:25 06:16 WBC (3.8-10.6) k/uL RBC (3.80-5.40) m/uL Hgb (11.4-16.0) gm/dL Hct (34.0-46.0) % RDW (11.5-15.5) % Plt Count (150-450) k/uL Lymphocytes # (1.0-4.8) k/uL Potassium (3.5-5.1) mmol/L Chloride 112 H (98-107) mmol/L Carbon Dioxide 20 L (22-30) mmol/L Creatinine 0.50 L (0.52-1.04) mg/dL Glucose 119 H (74-99) mg/dL POC Glucose (mg/dL) 131 H (75-99) mg/dL Calcium 7.4 L (8.4-10.2) mg/dL Phosphorus 2.2 L (2.5-4.5) mg/dL Total Protein 3.9 L (6.3-8.2) g/dL Albumin 2.1 L (3.5-5.0) g/dL HSV I DNA PCR (Not detected) Microbiology - Last 24 Hours (Table) 01/28/17 05:40 Blood Culture - Preliminary Blood No Growth after 96 hours 01/29/17 11:40 CSF Gram Stain - Preliminary Cerebral Spinal Fluid CSF Culture - Preliminary 01/28/17 10:41 Blood Culture - Preliminary Blood No Growth after 72 hours 01/28/17 10:40 Blood Culture - Preliminary Blood No Growth after 72 hours Assessment and Plan Plan: 1. Altered mental status changes: Likely a metabolic encephalopathy secondary to seizures and herpes encephalitis. 2 CT scans of the brain completed with no acute changes. Neurology following closely. Blood culture and urine culture remained negative. Awaiting final CSF culture 2. UTI: Resolved urine culture negative 3. Sepsis with temperature high as 102 and tachycardia. Continue IV fluids. Normal lactic acid 4. Hyponatremia: Patient placed on normal saline. Repeat labs in a.m. 5. Essential hypertension: Blood pressure stable. Continue lisinopril and Norvasc 6. History of breast cancer status post chemotherapy and bilateral mastectomy 7. History of brain cancer with brain tumor removed about 6 weeks ago. Last radiation treatment on Wednesday last week 8. Elevated troponins evaluated by cardiology. They felt that this was not consistent with acute coronary syndrome EKG had shown sinus tachycardia with a right bundle branch block. 9. Thrombocytopenia and leukopenia: Evaluated by oncology. Eros that it may be related to patient's sepsis 10. Possible pneumonia noted on chest x-ray. Continue IV antibiotics. Infectious disease and pulmonary following 11. Seizure disorder: Seizure medications adjusted per neurology. They have increased the Keppra, added Depakote and Vimpat 12. Herpetic encephalitis: Continue acyclovir GI prophylaxis Pepcid and DVT prophylaxis SCDs I performed an examination of the patient and discussed their management with the physician Punch Press Operator. I have reviewed the Physician Punch Press Operator's notes and agree with the documented findings and plan of care
--- NOTE | 2017-02-01 12:09 | PN ---
This is a 71-year-old female with history of herpes simplex virus encephalopathy. Mental status changes for most of which are chronic in nature, recent craniotomy for metastatic breast cancer, generalized weakness, poor mental status, breast cancer with solitary brain mets, pancytopenia and acute urinary tract infection. The patient is doing very poorly. She has had chronic mental status changes for some time. She has been on acyclovir for about 3 or 4 days for HSV encephalitis. We will talk to family today about code status. She is a FULL CODE at this time. That is inappropriate in my mind given her history. In addition, she has a history of non- ST segment elevation myocardial infarction as well as the other medical problems as listed. Current vital signs include temperature 98.9, heart rate 91, respiratory rate 26, blood pressure 141/93, mean 109 and a saturation 98% on 2 L. Appears in no acute distress. No purposeful movements. HEENT examination is grossly unremarkable. Nasal O2 in place. Well healed craniotomy scar is noted. NECK: Supple. Full range of motion. Cardiovascular examination reveals regular rhythm and rate. S1, S2 normal. Lungs reveal coarse rhonchi. Breath sounds are diminished. ABDOMEN: Soft. Extremities are intact. No cyanosis, clubbing or edema. Skin without rash. Neurologic examination cannot be adequately performed. She is getting O2 at 2 L and a D5 0.45 IV at 100 mL an hour. Current labs include a white count of 2, hemoglobin 8.4, hematocrit 23.8, and platelet count of 50,000. The patient had significant pancytopenia. Sodium 138, potassium 3.8, chloride 112, CO2 of 20, BUN and creatinine were 10 and 0.5. Albumin 2.1. The chest x-ray done yesterday shows left lower lobe infiltrate and tiny effusion. There is a patchy right upper lobe infiltrate as well. Microbiology thus far is all negative. Medications are reviewed. The patient is on Tylenol, Tylenol with Codeine, acyclovir, Norvasc, cefepime, dextrose, lacosamide, Keppra, lisinopril, Ativan, magnesium, Namenda, nitroglycerin, Levophed. Protonix, phosphorus replacement, potassium replacement, pravastatin, valproic acid and her IV. ASSESSMENT: 1. Herpes simplex virus encephalopathy. 2. Mental status changes, most of which are chronic in nature from a previous craniotomy. 3. Recent craniotomy for solitary brain metastasis from her metastatic breast cancer. 4. Metastatic breast cancer. 5. Pancytopenia. 6. Urinary tract infection. 7. Possible pneumonia. PLAN: Prognosis is poor. Will speak to the family. Apparently, they were considering comfort measures. At the very least, the patient should be a DO NOT RESUSCITATE. No additional recommendations are made. Will continue to follow. CRITICAL CARE TIME: 36 minutes.
[2017-02-01] MEDS: LACOSAMIDE IV 100 MG in SODIUM CHLORIDE 0.9% 50 ML IVPB SCH ×2 (13:35→21:16)
--- NOTE | 2017-02-01 14:09 | P.PN ---
Subjective Principal diagnosis: Altered mental status This is a pleasant 71-year-old female continuing be evaluated by the neurology service for altered mental status. She was brought to the [facility] emergency room for progressive confusion for a couple weeks. She has a history of brain cancer with surgical resection about 7weeks ago. She has received chemotherapy and radiation for this and for breast cancer. She is being treated for urinary tract infection and HSV encephalopathy. She had a computed tomography scan of the brain upon arrival and showed no acute intracranial abnormalities. It did show postsurgical changes in the left frontal region with generalized atrophy and small vessel ischemic changes. Her repeat CAT scan was unchanged . Cardiology has evaluated her due to some elevated troponin levels they do not think this is due to any significant cardiac etiology. She has been on postop Keppra since her tumor resection of the brain. She does not have a history of seizures. We ordered an EEG which did show recurrent seizure activity. We added Vimpat to her Keppra, which we increased to 1000 mg twice a day. Recommendation was also made to discontinue Zosyn as this possibly can contribute to seizures. She continued to have possible seizure activity so we had added Depakote. At the time of my exam she is asking comfortably in the ICU, but less responsive today. She is in the process of being discharged to hospice home care. Objective - Vital Signs Vital signs: Vital Signs Temp 100.5 F H 02/01/17 12:00 Pulse 103 H 02/01/17 13:00 Resp 24 02/01/17 13:00 BP 115/72 02/01/17 13:00 Pulse Ox 98 02/01/17 13:00 Intake & Output 01/31/17 02/01/17 02/01/17 18:59 06:59 18:59 Intake Total 1290 1790 1010 Output Total 620 568 965 Balance 670 1222 45 Weight 64.2 kg 65.7 kg Intake: IV 1210 1260 800 0.9 60 60 50 ACETAMINOPHEN IV (For NPO 100 ) 1,000 mg In Empty Bag 1 bag @ 400 mls/hr IVPB ONCE PRN Rx#:[id number] Acyclovir Sodium 650 mg 200 100 100 In Sodium Chloride 0.9% 100 ml @ 100 mls/hr IV Q8HR [facility] Rx#:[id number] Dextrose 5%-0.45% NaCl 1, 400 750 500 000 ml @ 50 mls/hr IV . Q20H [facility] Rx#:[id number] Lacosamide IV 100 mg In 50 50 Sodium Chloride 0.9% 50 ml @ 100 mls/hr IVPB BID [facility] Rx#:[id number] Magnesium Sulfate-D5w Pmx 200 1 gm In Dextrose/Water 1 100ml.bag @ 100 mls/hr IVPB Q1H [facility] Rx#: [id number] Potassium Chloride 20 meq 200 Lidocaine 2% Inj 20 mg In Sodium Chloride 0.9% 100 ml @ 55.5 mls/hr IVPB Q2HR [facility] Rx#:[id number] Valproate Sodium 500 mg 100 50 In Sodium Chloride 0.9% 50 ml @ 50 mls/hr IVPB Q8HR [facility] Rx#:[id number] levETIRAcetam IV 1,000 mg 100 100 100 In Saline 1 100ml.bag @ 400 mls/hr IVPB Q12HR [facility] Rx#:[id number] Intake, IV Titration 50 Amount Cefepime 2 gm In Sodium 50 Chloride 0.9% 50 ml @ 100 mls/hr IVPB Q8HR [facility] Rx# :[id number] Tube Feeding 50 240 210 Other 30 240 Output: Urine 620 568 965 Other: Voiding Method Indwelling Catheter Indwelling Catheter Indwelling Catheter # Bowel Movements 1 1 - Constitutional General appearance: Present: no acute distress - EENT Eyes: Present: PERRLA. Absent: abnormal pupil, ptosis - Neck Neck: Present: normal ROM. Absent: rigidity - Respiratory Respiratory: negative: prolonged expiration, prolonged inspiration - Cardiovascular Rhythm: regular - Gastrointestinal General gastrointestinal: Absent: distended, tenderness - Neurologic Neurologic Comment(s): The patient's weight somnolent today. She does open her eyes and responds to tickling of her name. She is not responding to simple commands today. She does respond to light touch. There is no facial asymmetry seen. Mild tremoring of the right upper extremity is seen. No shai seizure activity seen. There is no nuchal rigidity. - Labs CBC & Chem 7: 02/01/17 04:25 02/01/17 04:25 Labs: Abnormal Lab Results - Last 24 Hours (Table) 01/29/17 01/31/17 01/31/17 Range/Units 11:40 17:49 23:28 WBC (3.8-10.6) k/uL RBC (3.80-5.40) m/uL Hgb (11.4-16.0) gm/dL Hct (34.0-46.0) % RDW (11.5-15.5) % Plt Count (150-450) k/uL Lymphocytes # (1.0-4.8) k/uL Chloride (98-107) mmol/L Carbon Dioxide (22-30) mmol/L Creatinine (0.52-1.04) mg/dL Glucose (74-99) mg/dL POC Glucose (mg/dL) 104 H 128 H (75-99) mg/dL Calcium (8.4-10.2) mg/dL Phosphorus (2.5-4.5) mg/dL Total Protein (6.3-8.2) g/dL Albumin (3.5-5.0) g/dL HSV I DNA PCR DETECTED H (Not detected) 02/01/17 02/01/17 02/01/17 Range/Units 04:25 04:25 06:16 WBC 2.0 L* (3.8-10.6) k/uL RBC 2.63 L (3.80-5.40) m/uL Hgb 8.4 L (11.4-16.0) gm/dL Hct 23.8 L (34.0-46.0) % RDW 18.4 H (11.5-15.5) % Plt Count 50 L* (150-450) k/uL Lymphocytes # 0.3 L (1.0-4.8) k/uL Chloride 112 H (98-107) mmol/L Carbon Dioxide 20 L (22-30) mmol/L Creatinine 0.50 L (0.52-1.04) mg/dL Glucose 119 H (74-99) mg/dL POC Glucose (mg/dL) 131 H (75-99) mg/dL Calcium 7.4 L (8.4-10.2) mg/dL Phosphorus 2.2 L (2.5-4.5) mg/dL Total Protein 3.9 L (6.3-8.2) g/dL Albumin 2.1 L (3.5-5.0) g/dL HSV I DNA PCR (Not detected) Microbiology - Last 24 Hours (Table) 01/28/17 10:41 Blood Culture - Preliminary Blood No Growth after 96 hours 01/28/17 10:40 Blood Culture - Preliminary Blood No Growth after 96 hours 01/28/17 05:40 Blood Culture - Preliminary Blood No Growth after 96 hours 01/29/17 11:40 CSF Gram Stain - Preliminary Cerebral Spinal Fluid CSF Culture - Preliminary Assessment and Plan (1) Altered mental status Status: Acute (2) Fever Status: Acute (3) Generalized weakness Status: Chronic (4) Brain tumor Status: Chronic (5) UTI (urinary tract infection) Status: Acute (6) Seizures Status: Acute (7) Meningitis due to herpes simplex virus Status: Acute (8) Encephalitis due to human herpes simplex virus Status: Acute Plan: Patient's altered mental status is multifactorial encephalopathy along with seizure activity. She has been started on IV acyclovir for likely HSV encephalitis. Infectious disease will continue to follow. Continuation of Keppra, Depakote and Vimpat at current doses will be at the discretion of hospice physicians. Continue seizure precautions and neurological checks. She is otherwise cleared from a neurological standpoint to receive hospice care. I have performed a history and physical on the above patient. I have reviewed the above note, and agree.
--- NOTE | 2017-02-01 17:02 | PN ---
DATE OF SERVICE: 02/01/2017 REASON FOR FOLLOWUP: 1. Herpes encephalitis. 2. Neutropenic fever. INTERVAL HISTORY: The patient overall feels better and has improved. The patient is hemodynamically stable, not on any pressor support, not requiring a significant amount of supplemental oxygen. The patient remains lethargic though does open her eyes to sternal rub by the RN. No significant history could be obtained from the patient. On examination, blood pressure is 141/79 with a pulse of 91, temperature 98.9. She is 100% on 2 L nasal cannula. General description is an elderly female lying in bed in no distress. RESPIRATORY SYSTEM: Unlabored breathing. Clear to auscultation anteriorly. HEART: S1, S2. Regular rate and rhythm. ABDOMEN: Soft. No tenderness. LABS: Hemoglobin 8.4, white count 2.0 with a BUN of 10, creatinine 0.50. DIAGNOSTIC IMPRESSION AND PLAN: Patient with mental status changes and fever, multifactorial, with a component of herpes encephalitis, currently covered with acyclovir. Patient also has neutropenic fever and possible pneumonia, for which cefepime has been added. Overall fever pattern has improved. Patient will be monitored closely; however, the family is leaning more toward hospice and comfort care. If that is the case, antibiotic can be safely discontinued. MTDD
[2017-02-01] MEDS: PRAVASTATIN SODIUM 20 MG TAB PO SCH (21:18)
[2017-02-01] MEDS ORDERED: ACETAMINOPHEN IV (For NPO) 1,000 MG in EMPTY BAG 1 BAG IVPB PRN (21:58)
[2017-02-02] MEDS: VALPROATE SODIUM 500 MG in SODIUM CHLORIDE 0.9% 50 ML IVPB SCH ×2 (00:27→07:12)
[2017-02-02] MEDS: DEXTROSE 5%-0.45% NACL 1,000 ML IV SCH ×2 (05:01→08:19)
[2017-02-02 07:38] LABS: Glucose,Whole Blood 99 mg/dL (75-99)
[2017-02-02] MEDS: levETIRAcetam IV 1,000 MG in SALINE 1 100ML.BAG IVPB SCH (08:15)
[2017-02-02] MEDS: MEMANTINE 10 MG TAB PO SCH (08:19)
[2017-02-02 10:15] VITALS: BP 132/73; PULSE 90; RESP 21; TEMP 97.8
[2017-02-02] MEDS: LACOSAMIDE IV 100 MG in SODIUM CHLORIDE 0.9% 50 ML IVPB SCH (10:49)
--- NOTE | 2017-02-02 11:44 | P.PN ---
Subjective This is a 71-year-old female with recent craniotomy to excise an isolated metastatic breast lesion in the brain. This was done about 6 weeks ago. Patient was initially diagnosed with breast cancer in late 2014, and she underwent lumpectomy with lymph node dissection in July of 2015. Patient had a 1.8 cm breast primary with 7 lymph nodes involved including macro metastasis. Follow-up PET scan done revealed no evidence of any metastatic disease, patient received adjuvant chemotherapy with Adriamycin and Cytoxan followed by Taxol. She completed treatment around December of 2015, and she proceeded to radiation. In November of 2016, patient had sudden onset of mental status change and she was found to have a 5.3 cm solitary brain mass consistent with metastatic disease. She was transferred to [facility], and she underwent resection followed by whole brain radiation. Patient is on clinical trial with memantine, given along with whole brain radiation which was completed on 01/13/2017. Postradiation, patient has been getting progressively weaker especially in the lower extremities, patient is becoming more lethargic, and to the point of inability to ambulate. Seen in the ER on 01/27/2017, and admitted with mental status change, profound weakness, pancytopenia type picture , CT of the brain 2 showed no new abnormality, blood cultures have been negative, patient was empirically placed on antibiotics, and yesterday the patient was placed on acyclovir for what seems to be a positive PCR from the spinal fluid serology. Patient is now being followed by many consultants, and considering the patient's mental status seems to be slightly getting worse, she was transferred to the ICU, and I was asked to see her on consultation. Patient is hemodynamically stable, she seems to be lethargic, but able to protect her airways, and in no form of respiratory distress at the time of my evaluation. Family is at bedside, CODE STATUS was also discussed with the family, and the patient is presently full code. Labs were reviewed, WBC count is 1.8 hemoglobin is 8.1 electrolytes are relatively normal except for slightly low potassium of 3.5. Spinal fluid report was reviewed, spinal fluid protein was high at 125, glucose was low at 35, and PCR for HSV 1 was positive. Gram stain is negative. The patient is seen again today 02/02/2017 in follow-up on the regular medical floor. She is currently resting comfortably in bed. Dr. Peterson had spoken with the and son and daughter were in agreement to place the patient in hospice and try to get her home with comfort care. She is currently maintaining O2 saturations in the high 90s on 3 L/m per nasal cannula. She's been afebrile today, hemodynamically stable. Blood cultures are revealing no growth to date. Objective - Vital Signs Vital signs: Vital Signs Temp 97.8 F 02/02/17 10:14 Pulse 90 02/02/17 10:14 Resp 21 02/02/17 10:14 BP 132/73 02/02/17 10:14 Pulse Ox 98 02/02/17 10:14 Intake & Output 02/01/17 02/02/17 02/02/17 18:59 06:59 18:59 Intake Total 1320 2000 Output Total 1515 100 Balance -195 1900 Intake: IV 1110 200 0.9 60 Acyclovir Sodium 650 mg 100 In Sodium Chloride 0.9% 100 ml @ 100 mls/hr IV Q8HR [facility] Rx#:[id number] Dextrose 5%-0.45% NaCl 1, 800 000 ml @ 50 mls/hr IV . Q20H [facility] Rx#:[id number] Lacosamide IV 100 mg In 50 Sodium Chloride 0.9% 50 ml @ 100 mls/hr IVPB BID [facility] Rx#:[id number] Valproate Sodium 500 mg 50 50 In Sodium Chloride 0.9% 50 ml @ 50 mls/hr IVPB Q8HR [facility] Rx#:[id number] levETIRAcetam IV 1,000 mg 100 100 In Saline 1 100ml.bag @ 400 mls/hr IVPB Q12HR [facility] Rx#:[id number] Intake, IV Titration 100 Amount ACETAMINOPHEN IV (For NPO 100 ) 1,000 mg In Empty Bag 1 bag @ 400 mls/hr IVPB Q8H [facility] Rx#:[id number] Oral 1700 Tube Feeding 210 Output: Urine 1515 100 Other: Voiding Method Indwelling Catheter Indwelling Catheter Indwelling Catheter # Voids 0 - Exam Physical Exam: Revealed a 71-year-old female, lethargic, arousable, opens eyes off and on, and does not verbalize much. Not in respiratory distress. HEENT:[Neck is supple.] [No neck masses.] [No thyromegaly.] [No JVD.] Evidence of left frontal craniotomy scar noted Chest: [Diminished breath sound bilaterally, no crackles or rhonchi or wheezes] Cardiac Exam: [Normal S1 and S2, no S3 gallop, no murmur.] Abdomen: [Soft, nontender, no megaly, no rebound, no guarding, normal bowel sounds.] Extremities: [No clubbing, no edema, no cyanosis.] Neurological Exam: Patient is drowsy and falls asleep easily but arousable and answers yes or no but goes right back to sleep, seems to be generally weak, no facial asymmetry noted. - Labs CBC & Chem 7: 02/01/17 04:25 02/01/17 04:25 Labs: Microbiology - Last 24 Hours (Table) 01/28/17 05:40 Blood Culture - Preliminary Blood No Growth after 120 hours 01/31/17 15:10 Blood Culture - Preliminary Blood No Growth after 24 hours 01/31/17 14:50 Blood Culture - Preliminary Blood No Growth after 24 hours 01/29/17 11:40 CSF Gram Stain - Preliminary Cerebral Spinal Fluid CSF Culture - Preliminary 01/28/17 10:41 Blood Culture - Preliminary Blood No Growth after 96 hours 01/28/17 10:40 Blood Culture - Preliminary Blood No Growth after 96 hours Assessment and Plan Plan: Impression: 1 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 2 altered mental status secondary to herpes simplex encephalitis and also secondary to recent brain radiation treatment. 3 history of recent craniotomy and excision of a metastatic breast cancer mass. 4 generalized weakness secondary to above. 5 history of breast cancer with solitary brain metastasis. 6 pancytopenia, multifactorial. 7 acute urinary tract infection, urine cultures are pending at the time of this dictation. Plan: The patient was seen and evaluated by Dr. Cid. We had further discussions with the patient's daughters at the bedside. The plan continues to be hospice/ comfort care with hopes of getting the patient home. In the interim we'll continue with the IV acyclovir. She has been followed by infectious disease. We'll see the patient on as-needed basis.
--- NOTE | 2017-03-25 14:41 | P.DS ---
Providers Date of admission: 01/27/17 16:52 Expected date of discharge: 02/02/17 Attending physician: Cisco Bishop Consults: 01/27/17 16:52 Consult Physician Urgent Consulting Provider: Simone Yo Consult Reason/Comments: Non-ST elevation myocardial infarction, 6 week post brain surgery Do you want consulting provider notified?: Yes 01/28/17 05:21 Consult Physician Routine Consulting Provider: Carmen Mack Consult Reason/Comments: change in mental status Do you want consulting provider notified?: Yes, Notify in am 01/28/17 08:38 Consult Physician Routine Consulting Provider: Rohan Lao Consult Reason/Comments: thrombocytopenia and low WBC Do you want consulting provider notified?: Yes 01/28/17 09:09 Consult Anesthesia Stat Consulting Provider: Anesthesia,Services Consult Reason/Comments: spinal tap for sepsis 01/28/17 09:10 Consult Physician Stat Consulting Provider: Justyn Nunn Consult Reason/Comments: sepsis; elevated temps; uti Do you want consulting provider notified?: Yes 01/28/17 18:28 Consult Anesthesia Stat Consulting Provider: Anesthesia,Services Consult Reason/Comments: spinal tap 01/30/17 13:39 Consult Physician Routine Consulting Provider: Yahir Randall Consult Reason/Comments: critical care management Do you want consulting provider notified?: Yes Primary care physician: Shobha Boss Hospital Course: Discharge diagnosis Preliminary cause of 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 Altered mental status changes: Likely a metabolic encephalopathy secondary to seizures and herpes encephalitis. 2 CT scans of the brain completed with no acute changes. Neurology following closely. Blood culture and urine culture remained negative. Awaiting final CSF culture 2. UTI: Resolved urine culture negative 3. Sepsis with temperature high as 102 and tachycardia. Continue IV fluids. Normal lactic acid 4. Hyponatremia: Patient placed on normal saline. Repeat labs in a.m. 5. Essential hypertension: Blood pressure stable. Continue lisinopril and Norvasc 6. History of breast cancer status post chemotherapy and bilateral mastectomy 7. History of brain cancer with brain tumor removed about 6 weeks ago. Last radiation treatment on Wednesday last week 8. Elevated troponins evaluated by cardiology. They felt that this was not consistent with acute coronary syndrome EKG had shown sinus tachycardia with a right bundle branch block. 9. Thrombocytopenia and leukopenia: Evaluated by oncology. [place] that it may be related to patient's sepsis 10. Possible pneumonia noted on chest x-ray. Continue IV antibiotics. Infectious disease and pulmonary following 11. Seizure disorder: Seizure medications adjusted per neurology. They have increased the Keppra, added Depakote and Vimpat 12. Herpetic encephalitis: Continue acyclovir 13. 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 Crowley. She has a known past medical history of breast cancer with bilateral mastectomy requiring chemotherapy, brain cancer with brain tumor removed about 6 weeks ago. Last radiation treatment was Wednesday of last week. Patient also has a history of hypertension, hyperlipidemia, GERD and was a former smoker. Patient has been living at home initially had been doing okay working with physical therapy. Over the last couple of weeks patient has declined physically. She was unable to stand. She was having falls. Started having decrease in appetite. Yesterday patient was becoming more lethargic. Family was concerned and brought her into the emergency room for further evaluation. She was found have a temp of 101.4 heart rate of 116. There was evidence of a UTI. She was initially started on Rocephin. Antibiotic were switched to Zosyn and Levaquin subsequently Levaquin was discontinued and she was started on IV vancomycin infectious disease consultation is following. Over the weekend patient continued to have worsening in her mental status. And she was transferred to the ICU. EEG completed showing eizure activity. Neurology has increased the Keppra to 1000 mg every 12 hours. Depakote 500 mg IV every 8 hours has also been added. She also on Vimpat 100 mg IV twice a day. Infectious disease has adjusted antibiotics to cefepime. She is also on acyclovir for the HSV that was found in the cerebral spinal fluid. Patient is still lethargic does respond to pain. If family at bedside. They're questioning about possible hospice. Patient has had really no improvement in her mentation. Patient continues to have fevers. Temp last night of 101.2 Patient was followed closely but by consulting physicians. Patient did not have improvement with aggressive treatment. Family did wish to proceed with comfort care measures and hospice. Therefore patient was placed on comfort care and she was discharged home with [facility]. Prescription for to chart for any further details Patient Condition at Discharge: Undetermined Plan - Discharge Summary New Discharge Prescriptions: New LORazepam [Ativan] 1 mg PO 5XD PRN #30 tab PRN Reason: Agitation MORPHINE ORAL SOLN 20mg/mL [Roxanol Oral Soln Conc 20MG/ML] 5 mg PO Q4H PRN # 30 ml PRN Reason: Pain Discontinued Pravastatin Sodium [Pravachol] 20 mg PO HS levETIRAcetam [Keppra] 500 mg PO BID Memantine [Namenda] 10 mg PO BID Enalapril Maleate [Vasotec] 5 mg PO BID Pantoprazole [Protonix] 40 mg PO DAILY Famotidine [Pepcid] 20 mg PO BID Acetaminophen-Codeine 300-30mg [Tylenol #3] 1 tab PO Q8H PRN PRN Reason: Pain amLODIPine [Norvasc] 5 mg PO DAILY Discharge Medication List LORazepam [Ativan] 1 mg PO 5XD PRN #30 tab 02/02/17 [Rx] MORPHINE ORAL SOLN 20mg/mL [Roxanol Oral Soln Conc 20MG/ML] 5 mg PO Q4H PRN #30 ml 02/02/17 [Rx] Follow up Appointment(s)/Referral(s): [facility], [NON-STAFF] - Shobha Boss MD [Primary Care Provider] - 1-2 days Discharge Disposition: HOME WITH HOSPICE - Preliminary Cause of Preliminary Cause of : Meningitis secondary to herpes simplex virus and sepsis
== END 2017-02-02 17:45 | disposition hospice, home (50) | DRG 871 ==
LOC: EC 13:42 → 6SEL 16:52 → 6ICU 01-30 14:08 → 5MS5E 02-01 17:59
PROVIDERS: ADMIT Internal Medicine; ATTEND Internal Medicine
PROC: 009U3ZX Drainage of Spinal Canal, Percutaneous Approach, Diagnostic (ICD-10-PCS; principal; 2017-01-29 11:30)
DX: A41.9 Sepsis, unspecified organism (principal); B00.4 Herpesviral encephalitis; B00.3 Herpesviral meningitis; G93.41 Metabolic encephalopathy; D61.818 Other pancytopenia; C79.31 Secondary malignant neoplasm of brain; N39.0 Urinary tract infection, site not specified; E87.1 Hypo-osmolality and hyponatremia; G62.9 Polyneuropathy, unspecified; Z51.5 Encounter for palliative care; Z66 Do not resuscitate; R29.716 NIHSS score 16; G40.909 Epilepsy, unspecified, not intractable, without status epilepticus; I45.10 Unspecified right bundle-branch block; I10 Essential (primary) hypertension; J45.909 Unspecified asthma, uncomplicated; E78.5 Hyperlipidemia, unspecified; K21.9 Gastro-esophageal reflux disease without esophagitis; I25.2 Old myocardial infarction; M19.91 Primary osteoarthritis, unspecified site; E03.9 Hypothyroidism, unspecified; Z00.6 Encounter for examination for normal comparison and control in clinical research program; Z96.60 Presence of unspecified orthopedic joint implant; Z88.5 Allergy status to narcotic agent; Z90.13 Acquired absence of bilateral breasts and nipples; Z92.21 Personal history of antineoplastic chemotherapy; Z85.3 Personal history of malignant neoplasm of breast; Z92.3 Personal history of irradiation; Z86.19 Personal history of other infectious and parasitic diseases; Z90.710 Acquired absence of both cervix and uterus; Z87.891 Personal history of nicotine dependence; Z79.899 Other long term (current) drug therapy; Z80.3 Family history of malignant neoplasm of breast
CPT/HCPCS: 36415; 62270; 70450; 71010; 71260; 74000; 74177; 80048; 80053; 80061; 80164; 80202; 80306; 81001; 82140; 82550; 82553; 82945; 83605; 83735; 84100; 84132; 84157; 84295; 84484; 85025; 85384; 85610; 85730; 86300; 87040; 87070; 87086; 87205; 87529; 88108; 89050; 93005; 93306; 94760; 95816; 96360; 96361; 99291